=== PATIENT | male | born 1945 | race Caucasian/White ===

== ENCOUNTER 2020-12-18 09:41 | Inpatient (IN) | payer MEDICARE, MEDICAID ==
[~2020-12-18] VITALS: Ht 167 cm; Wt 74.0 kg
[~2020-12-18 09:41] MED LIST: PROM25SU10 RC; TRAM50TA2 PO
--- NOTE | 2020-12-18 09:59 | ED Neurological Problem ---
General Chief Complaint: Neuro-Stroke Like Symptoms Stated Complaint: STROKE LIKE SYMPTOMS History of Present Illness Date Seen by Provider: Dec 18, 2020 Time Seen by Provider: 09:53 Initial Comments Patient is a 75-year-old male who presents to the emergency department today with a chief complaint of left upper extremity weakness. Patient states that he woke up around midnight last night and noticed that his left hand was not working normally. Patient states that he also has some slurred speech. The patient is edentulous however he states that his speech sounds different to himself. Patient denies any complaints of specific leg weakness but states that he did feel like when he was walking he might fall secondary to weakness in the leg. Patient denies any numbness in his extremities. He states that the hand is just not working. He appears to have difficulty with even abducting the left arm. Patient states when he woke up at midnight last night he did have a mild frontal headache. When he woke up this morning it was a little bit worse. He did not take any medications to try and alleviate his symptoms. Patient states that he does not go to doctors. Patient denies any recent illnesses such as fevers, chills, productive cough. He does occasionally feel short of breath. He does smoke quite heavily from 2 packs a day to 1 pack a day most recently. Patient denies any GI or symptoms. All other review of systems reviewed and negative except as stated above. Timing/Duration: 24 hours (10 hours since symptom onset) Severity: moderate Associated Symptoms: No numbness in legs/feet, No paresthesia; slurred speech, trouble walking Allergies and Home Medications Allergies Coded Allergies: No Known Drug Allergies (Unverified , 08/08/09) Home Medications Amlodipine Besylate 10 Mg Tablet, 10 MG PO DAILY Prescribed by: BELKIS MAHONEY on 12/20/20916 Aspirin 325 Mg Tablet.dr, 325 MG PO DAILY Prescribed by: BELKIS MAHONEY on 12/20/20916 Atorvastatin Calcium 40 Mg Tablet, 40 MG PO HS Prescribed by: BELKIS MAHONEY on 12/20/20916 Carvedilol 12.5 Mg Tablet, 12.5 MG PO BID Prescribed by: BELKIS MAHONEY on 12/20/20916 Patient Home Medication List Home Medication List Reviewed: Yes Review of Systems Review of Systems Constitutional: see HPI Eyes: No Symptoms Reported Ears, Nose, Mouth, Throat: no symptoms reported Respiratory: short of breath (Occasional shortness of breath) Cardiovascular: no symptoms reported Gastrointestinal: no symptoms reported Genitourinary: no symptoms reported Musculoskeletal: no symptoms reported Skin: no symptoms reported Psychiatric/Neurological: Headache, Unable to Move Upper Ext, Weakness (Left upper extremity) All Other Systems Reviewed Negative Unless Noted: Yes Past Fzpvkrj-Ntxohc-Ymourd Hx Past Medical History Reproductive Disorders: No Physical Exam Vital Signs Vital Signs - First Documented 12/18/20 09:41 Temp 37.0 Pulse 75 Resp 20 B/P (MAP) 171/101 (124) Pulse Ox 92 O2 Delivery Room Air Capillary Refill : Height, Weight, BMI Height: '" Weight: lbs. oz. kg; BMI Method: General Appearance: WD/WN, no apparent distress HEENT: PERRL/EOMI, normal ENT inspection, pharynx normal Respiratory: lungs clear, normal breath sounds, no respiratory distress, no accessory muscle use Cardiovascular: regular rate, rhythm Gastrointestinal: normal bowel sounds, non tender, soft Extremities: non-tender, normal inspection, normal capillary refill Neurologic/Psychiatric: alert, normal mood/affect, oriented x 3, motor weakness (Left upper extremity); No sensory deficit; other (Patient's tongue seems to deviate to the right) Crainal Nerves: normal hearing, abnormal speech (Slurred speech); No facial droop, No facial paresthesias, No facial weakness; tongue deviation to R Coordination/Gait: normal finger to nose (Coordination appears normal however the patient does demonstrate an ataxia with use of the left upper extremity) Skin: normal color, warm/dry Progress/Results/Core Measures Results/Orders Lab Results Laboratory Tests Test 12/18/20 09:45 12/18/20 10:01 12/18/20 10:12 Range/Units Sodium Level 138 135-145 MMOL/L Potassium Level 4.4 3.6-5.0 MMOL/L Chloride Level 109 H 98-107 MMOL/L Carbon Dioxide Level 20 L 21-32 MMOL/L Anion Gap 9 5-14 MMOL/L Blood Urea Nitrogen 17 7-18 MG/DL Creatinine 0.85 0.60-1.30 MG/DL Estimat Glomerular Filtration Rate > 60 BUN/Creatinine Ratio 20 Glucose Level 124 H 70-105 MG/DL Calcium Level 8.9 8.5-10.1 MG/DL Corrected Calcium 8.6 8.5-10.1 MG/DL Total Bilirubin 0.3 0.1-1.0 MG/DL Aspartate Amino Transf (AST/SGOT) 18 5-34 U/L Alanine Aminotransferase (ALT/SGPT) 18 0-55 U/L Alkaline Phosphatase 75 40-136 U/L Total Protein 7.0 6.4-8.2 GM/DL Albumin 4.4 3.2-4.5 GM/DL Triglycerides Level 59 <150 MG/DL Cholesterol Level 168 < 200 MG/DL LDL Cholesterol Direct 116 1-129 MG/DL VLDL Cholesterol 12 5-40 MG/DL HDL Cholesterol 51 40-60 MG/DL White Blood Count 7.2 4.3-11.0 10^3/uL Red Blood Count 4.69 4.30-5.52 10^6/uL Hemoglobin 14.7 13.3-17.7 g/dL Hematocrit 44 40-54 % Mean Corpuscular Volume 94 80-99 fL Mean Corpuscular Hemoglobin 31 25-34 pg Mean Corpuscular Hemoglobin Concent 34 32-36 g/dL Red Cell Distribution Width 13.0 10.0-14.5 % Platelet Count 207 130-400 10^3/uL Mean Platelet Volume 9.7 9.0-12.2 fL Immature Granulocyte % (Auto) 0 % Neutrophils (%) (Auto) 84 H 42-75 % Lymphocytes (%) (Auto) 11 L 12-44 % Monocytes (%) (Auto) 4 0-12 % Eosinophils (%) (Auto) 0 0-10 % Basophils (%) (Auto) 0 0-10 % Neutrophils # (Auto) 6.0 1.8-7.8 10^3/uL Lymphocytes # (Auto) 0.8 L 1.0-4.0 10^3/uL Monocytes # (Auto) 0.3 0.0-1.0 10^3/uL Eosinophils # (Auto) 0.0 0.0-0.3 10^3/uL Basophils # (Auto) 0.0 0.0-0.1 10^3/uL Immature Granulocyte # (Auto) 0.0 0.0-0.1 10^3/uL Mean Blood Glucose 120 <=126 mg/dL Hemoglobin A1c 5.8 H 4.0-5.6 % Urine Color YELLOW Urine Clarity CLEAR Urine pH 5.5 5-9 Urine Specific [place] 1.010 L 1.016-1.022 Urine Protein NEGATIVE NEGATIVE Urine Glucose (UA) NEGATIVE NEGATIVE Urine Ketones NEGATIVE NEGATIVE Urine Nitrite NEGATIVE NEGATIVE Urine Bilirubin NEGATIVE NEGATIVE Urine Urobilinogen 0.2 < = 1.0 MG/DL Urine Leukocyte Esterase NEGATIVE NEGATIVE Urine RBC (Auto) NEGATIVE NEGATIVE Urine RBC NONE /HPF Urine WBC 0-2 /HPF Urine Squamous Epithelial Cells 0-2 /HPF Urine Crystals NONE /LPF Urine Bacteria NEGATIVE /HPF Urine Casts NONE /LPF Urine Mucus NEGATIVE /LPF Urine Culture Indicated NO My Orders Orders - ALPHONSE MCDONOUGH MD Ct Head Wo (12/18/20 10:01) Cbc With Automated Diff (12/18/20 10:01) Comprehensive Metabolic Panel (12/18/20 10:01) Ua Culture If Indicated (12/18/20 10:01) Ekg Tracing (12/18/20 10:01) Chest 1 View, Ap/Pa Only (12/18/20 10:01) Ct Angio Head/Neck (12/18/20 10:43) Iohexol Injection (Omnipaque 350 Mg/Ml 1 (12/18/20 11:00) Received Contrast (Hold Metformin- Contr (12/18/20 11:00) Ns (Ivpb) (Sodium Chloride 0.9% Ivpb Bag (12/18/20 11:00) Medications Given in ED Vital Signs/I&O 12/18/20 09:41 Temp 37.0 Pulse 75 Resp 20 B/P (MAP) 171/101 (124) Pulse Ox 92 O2 Delivery Room Air Progress Progress Note : Time: 11:44 Progress Note 75-year-old male with a chief complaint of left-sided upper extremity weakness and slurred speech. Patient evaluation today includes physical exam, CBC, chemistry, urinalysis, chest x-ray, EKG CT scan of the brain noncontrast and CTA of the head and neck. Patient's initial CT scan noncontrast of the brain does not show any large pattern of infarct. His CTA of the head and neck shows some narrowing of the distal and proximal internal carotid arteries on the right. Case is discussed with Dr. Shane Buckner at [facility] neurology. He states that the patient is obviously outside of the window for TPA and secondary to low NIH and duration of symptoms would not be a candidate for any type of clot retrieval. No large thrombus is identified in any of the vessels of the head and neck. Patient will be admitted to the hospitalist service here for further evaluation and management of his stroke. Departure Communication (Admissions) Time/Spoke to Admitting Phy: 11:46 Case discussed discussed with Dr. Mahoney. Will admit observation to the medical floor pending MRI then may convert to full admission Impression Primary Impression: Left arm weakness Additional Impression: Hypertension Qualified Codes: I10 - Essential (primary) hypertension Disposition: ADMITTED INPATIENT Condition: Stable Admissions Decision to Admit Reason: Admit from ER (General) Decision to Admit/Date: Dec 18, 2020 Time/Decision to Admit Time: 11:54 Departure-Patient Inst. Referrals: HOLLY VERDUGO DO (PCP/Family) Primary Care Physician Scripts Amlodipine Besylate (Amlodipine Besylate) 10 Mg Tablet 10 MG PO DAILY for 30 Days, #30 TAB 0 Refills Prov: BELKIS MAHONEY MD 12/20/20 Aspirin (Aspirin EC) 325 Mg Tablet. 325 MG PO DAILY for 30 Days, #30 TAB 0 Refills Prov: BELKIS MAHONEY MD 12/20/20 Carvedilol (Carvedilol) 12.5 Mg Tablet 12.5 MG PO BID for 30 Days, #60 TAB 0 Refills Prov: BELKIS MAHONEY MD 12/20/20 Atorvastatin Calcium (Lipitor) 40 Mg Tablet 40 MG PO HS for 30 Days, #30 TAB 0 Refills Prov: BELKIS MAHONEY MD 12/20/20 ALPHONSE MCDONOUGH MD Dec 18, 2020 09:58
[2020-12-18 10:08] LABS: BASOPHILS % (AUTO) 0 % (0-10); EOSINOPHILS % (AUTO) 0 % (0-10); HEMATOCRIT 44 % (40-54); HEMOGLOBIN 14.7 g/dL (13.3-17.7); LYMPHOCYTES # (AUTO) 0.8 10^3/uL (1.0-4.0); LYMPHOCYTES % (AUTO) 11 % (12-44); MEAN CORPUSCULAR HEMOGLOBIN 31 pg (25-34); MEAN CORPUSCULAR HGB CONC 34 g/dL (32-36); MEAN CORPUSCULAR VOLUME 94 fL (80-99); MEAN PLATELET VOLUME 9.7 fL (9.0-12.2); MONOCYTES # (AUTO) 0.3 10^3/uL (0.0-1.0); MONOCYTES % (AUTO) 4 % (0-12); NEUTROPHILS % (AUTO) 84 % (42-75); PLATELET COUNT 207 10^3/uL (130-400); WHITE BLOOD COUNT 7.2 10^3/uL (4.3-11.0)
[2020-12-18 10:14] LABS: ALBUMIN 4.4 GM/DL (3.2-4.5); CHLORIDE 109 MMOL/L (98-107); POTASSIUM 4.4 MMOL/L (3.6-5.0); SODIUM 138 MMOL/L (135-145)
[2020-12-18 10:15] LABS: CALCIUM 8.9 MG/DL (8.5-10.1)
[2020-12-18 10:16] LABS: GLUCOSE 124 MG/DL (70-105)
[2020-12-18 10:17] LABS: CARBON DIOXIDE 20 MMOL/L (21-32)
[2020-12-18 10:18] LABS: BILIRUBIN,TOTAL 0.3 MG/DL (0.1-1.0)
[2020-12-18 10:20] LABS: ALKALINE PHOSPHATASE 75 U/L (40-136); CREATININE SERUM 0.85 MG/DL (0.60-1.30); GFR ESTIMATED > 60
[2020-12-18 10:21] LABS: BUN/CREATININE RATIO 20
[2020-12-18 10:23] LABS: ALANINE AMINOTRANSFERASE 18 U/L (0-55)
[2020-12-18 10:24] LABS: BILIRUBIN,URINE NEGATIVE (NEGATIVE); CLARITY,URINE CLEAR; COLOR,URINE YELLOW; GLUCOSE, URINE (UA) NEGATIVE (NEGATIVE); KETONES,URINE NEGATIVE (NEGATIVE); LEUKOCYTE ESTERASE ,URINE NEGATIVE (NEGATIVE); NITRITE,URINE NEGATIVE (NEGATIVE); PH,URINE 5.5 (5-9); PROTEIN,URINE NEGATIVE (NEGATIVE)
--- NOTE | 2020-12-18 10:31 | Diagnostic Imaging Report ---
PROCEDURE: CT head without contrast. TECHNIQUE: Multiple contiguous axial images were obtained through the brain without the use of intravenous contrast. Auto Exposure Controls were utilized during the CT exam to meet ALARA standards for radiation dose reduction. INDICATION: Left-sided weakness and slurred speech. COMPARISON: No prior studies are available for comparison. Ventricular size and sulcal pattern are stable for the patient's age. No sulcal effacement or midline shift is identified. No acute intra-axial or extra-axial hemorrhage is detected. The cisterns are patent. The visualized paranasal sinuses are clear apart from minimal mucosal thickening of ethmoid air cells and the sphenoid sinus. Mastoids are well aerated. IMPRESSION: No acute intracranial process is identified. Dictated by: Dictated on workstation # [id number]
[2020-12-18 10:35] LABS: BACTERIA,URINE NEGATIVE /HPF; SQUAMOUS EPITHELIAL CELL,UR 0-2 /HPF; WBC,URINE 0-2 /HPF
--- NOTE | 2020-12-18 10:40 | Diagnostic Imaging Report ---
Indication: Left-sided weakness. FINDINGS: Portable chest. Lungs are well-aerated and clear. Heart is not enlarged. No pulmonary edema or hilar adenopathy. No pneumothorax or pleural effusion. No bony abnormalities. IMPRESSION: Negative portable chest. Dictated by: Dictated on workstation # [id number]
[2020-12-18] MEDS ORDERED: NS 100 ML (IVPB) BAG IV ONE (11:00)
[2020-12-18] MEDS ORDERED: HOLD METFORMIN - RECEIVED CONTRAST 20 ML VIAL IV SCH (11:00)
[2020-12-18] MEDS ORDERED: IOHEXOL 350 MG/ML 100 ML (OMNIPAQUE 350) VIAL IV ONE (11:00)
--- NOTE | 2020-12-18 11:34 | Diagnostic Imaging Report ---
PROCEDURE: CT angiography of the head and CT angiography of the neck with and without contrast. TECHNIQUE: Contiguous noncontrast images were obtained from the skull base through the vertex. After intravenous contrast administration, helical CT angiography of the neck was performed. Source data was reformatted into 3D MIP projections. Delayed post contrast acquisition was also obtained. Auto Exposure Controls were utilized during the CT exam to meet ALARA standards for radiation dose reduction. INDICATION: Slurred speech and weakness on the left side. FINDINGS: Delayed postcontrast images are without evidence of enhancing lesion. The CT angiographic portion of the study demonstrates the right common carotid artery to be widely patent. The left common carotid artery is widely patent. There is calcified plaque at the carotid bifurcations bilaterally. There appears to be moderate stenosis involving the right internal carotid artery approximately 1-2 cm beyond its origin. There is also some narrowing of the distal right internal carotid artery and the carotid canal. Carotid siphon is unremarkable. Left internal carotid artery is patent. Left carotid siphon is unremarkable. The right and left middle cerebral arteries appear to be patent. No filling defect or thromboembolism is detected. There are no definite large branch occlusion is identified. The right and left anterior cerebral arteries appear to be patent. The vertebral arteries appear to be codominant and widely patent. The basilar artery is small but patent. There is a patent right posterior communicating artery and origin of the right [employer]. The left [employer]ER is patent. No thromboembolism is detected. IMPRESSION: There is moderate narrowing of the proximal right internal carotid artery as well as the distal right internal carotid artery. No high-grade stenosis is seen. Intracranially, no large branch occlusion or thromboembolism is identified. Dictated by: Dictated on workstation # [id number]
[2020-12-18 13:00] VITALS: BP 195/83
--- NOTE | 2020-12-18 13:40 | NUR ---
KENDALL GUILLAUME admitted to room 408-1, with an admitting diagnosis of LEFT ARM WEAKNESS, HYPERTENSION, on 12/18/20 from [place] via WHEELCHAIR, accompanied by STAFF.KENDALL GUILLAUME introduced to surroundings, call light, bed controls, phone, TV, temperature control, lights, meal times, smoking policy, visitor policy, side rail policy, bathrooms and showers. Patient Rights given to patient in the handbook. KENDALL GUILLAUME verbalizes understanding that [facility] is not responsible for the loss or damage to any personal effects or valuables that are kept in the patients posession during their hospitalization. KENDALL GUILLAUME verbalizes understanding of Interdisciplinary Patient Education. Patient and/or family were informed about the Rapid Response Team and its purpose.
[2020-12-18 14:17] LABS: TRIGLYCERIDES 59 MG/DL (<150); VLDL CHOLESTEROL 12 MG/DL (5-40)
[2020-12-18 14:22] LABS: CHOLESTEROL 168 MG/DL (< 200)
[2020-12-18 14:23] LABS: HDL CHOLESTEROL 51 MG/DL (40-60)
[2020-12-18] MEDS: ASPIRIN E.C. 325 MG (ECOTRIN) TABLET PO SCH (14:27)
[2020-12-18] MEDS ORDERED: ASPIRIN 325 MG (5 GR) TABLET ONE (14:27)
--- NOTE | 2020-12-18 14:56 | NUR ---
SPOKE WITH THE PT TO COMPLETE THE MED REC PT DENIES TAKING ANY OTC OR PRESCRIPTION MEDICATIONS [facility] WAS SELECTED THE PREFERRED PHARMACY PER PTS REQUEST
--- NOTE | 2020-12-18 15:19 | ST Dysphagia Evaluation ---
Speech Evaluation-General Medical Diagnosis CVA Onset Date: Dec 18, 2020 Therapy Diagnosis Therapy Diagnosis: Oropharyngeal Dysphagia Referral Referring Physician: Dr. Esquivel Medical History Reviewed History: Yes Social History Current Living Status: Brother Speech PLF/Current-Dysphagia Prior Level of Function Patient states he lived with his brother and could do anything at home that he needed to. He also states he does not go to doctors. Subjective Patient was cooperative with the Bedside Dysphagia Evaluation. Cognitive Status Patient Orientation: Person, Place, Situation Oral Motor Skills Dentition: Edentalous Ability to Follow Directions: Good Oral Expression Ability: No Impairment Voice Voice Phonatory-Based Quality: Normal Voice Pitch: Normal Voice Loudness: Mildly Soft/Quiet Face Facial Symmetry: Asymmetrical Slight left side facial droop Oral-Facial Assessment Oral-Facial Dentition: Normal Labial Seal Description: Droops Left Smile: Droops Left Lingual Protrusion: Abnormal Deviates to the right slightly Lingual ROM: Abnormal Deviates to the right slightly Lingual Strength: Abnormal Deviates to the right slightly Pharynx Velopharyngeal Move.: Normal Volitional Dry Swallow: Yes Voluntary Cough: Yes Dysphagia Evaluation Consistencies Presented: Thin Liquid, Mechanical Soft, Pureed Oral phase is within normal range for consistencies presented. Regular texture was not presented due to edentulous state. Pharyngeal phase is within normal range for consistencies presented. Regular texture was not presented due to edentulous state. Dietary Recommendations: Mechanical Soft Liquid Recommendations: Thin Swallowing Precautions: Alternate Liquids/Solids, Double Swallow, Decreased Bolus 1/2 Tsp, Liquids from Straw, Small Bites and Sips, Sitting Upright 90 Degrees, Sitting 90 Degrees 30 Post Intake Dysphagia Evaluation Summary Patient is a 75 y/o male who was admitted to the hospital via ED due to CVA. Patient completed the Bedside Dysphagia Evaluation without difficulty with all consistencies. The patient was given thin liquids via 1/2 tsp x2 and small sips via straw x2 without difficulty. Patient was also presented with 1/2 tsp of puree and mechanical soft without difficulty. The patient was not given regular texture due to edentulous state. The patient is recommended for Dysphagia II with thin liquids. This information was presented to the nurse as well as swapna davison on the white board in his room. Barriers to Learning None identified Speech-Plan Patient/Family Goals Patient/Family Goals: Patient plans on returning to his home upon discharge. Treatment Plan Speech Therapy Treatment Plan: Discontinue ST Treatment Duration: Dec 18, 2020 Frequency: 1 time per week Estimated Hrs Per Day: .25 hour per day Rehab Potential: Good Barriers to Learning: None identified Pt/Family Agrees to Plan: Yes Safety Risks/Education Teaching Recipient: Patient Teaching Methods: Discussion Response to Teaching: Verbalize Understanding Education Topics Provided: Safe oral intake, diet level Time Speech Therapy Time In: 14:50 Speech Therapy Time Out: 15:20 Total Billed Time: 30 Billed Treatment Time 1, DYSEVS, DYST, SPSNDCOMP, SLTS No RICARDO ZAVALA Dec 18, 2020 15:19
[2020-12-18 15:30] VITALS: BP 158/88
--- NOTE | 2020-12-18 15:30 | Physical Therapy Evaluation ---
PT Evaluation-General Medical Diagnosis Admission Date Dec 18, 2020 at 11:50 Medical Diagnosis: left UE weakness/HTN Onset Date: Dec 18, 2020 Therapy Diagnosis Therapy Diagnosis: debility/weakness Precautions Precautions/Isolations: Standard Precautions Weight Bear Status Right Lower Extremity: Right Weight Bearing/Tolerated Left Lower Extremity: Left Weight Bearing/Tolerated Referral Physician: Torri Reason for Referral: Evaluation/Treatment Medical History Pertinent Medical History: HTN Current History ER secondary to left UE weakness and slurred speech Reviewed History: Yes Social History Home: Single Level Current Living Status: Alone Entry Into Home: Stairs With Railing PT Steps Into Home: 4 Prior Prior Level of Function SCALE: Activities may be completed with or without assistive devices. 5-Cvpiaopaxe-zannfym completes the activity by him/herself with no assistance from a helper. 5-Set-up or Clean-up Assistance-helper sets up or cleans up; patient completes activity. [place] assists only prior to or following the activity. 4-Supervision or Touching Assistance-helper provides verbal cues and/or touching/steadying and/or contact guard assistance as patient completes activity. Assistance may be provided throughout the activity or intermittently. 3-Partial/Moderate Assistance-helper does LESS THAN HALF the effort. [place] lifts, holds or supports trunk or limbs, but provides less than half the effort. 2-Substantial/Maximal Assistance-helper does MORE THAN HALF the effort. [place] lifts or holds trunk or limbs and provides more than half the effort. 7-Kslhowfki-zcxrnq does ALL the effort. Patient does none of the effort to complete the activity. Or, the assistance of 2 or more helpers is required for the patient to complete the activity. If activity was not attempted, code reason: 7-Patient Refused. 9-Not Applicable-not attempted and the patient did not perform the activity before the current illness, exacerbation or injury. 10-Not Attempted due to Environmental Limitations-(lack of equipment, weather restraints, etc.). 88-Not Attempted due to Medical Conditions or Safety Concerns. Bed Mobility: 6 Transfers (B,C,W/C): 6 Gait: 6 Stairs: 6 Indoor Mobility (Ambulation): Independent Stairs: Independent Prior Devices Use: None PT Evaluation-Current Subjective Patient agrees to PT. Objective Patient Orientation: Normal For Age ROM/Strength ROM Lower Extremities bilateral LE WFL Strength Lower Extremities 4/5 grossly bilateral LE Integumentary/Posture Integumentary refer to nursing notes Bowel Incontinence: No Bladder Incontinence: No Posture WFL Neuromuscular (Tone, Coordination, Reflexes) grossly intact Sensory Vision: Functional Hearing: Functional Transfers Roll Left to Right (QC): 6 Sit to Lying (QC): 6 Lying to Sitting/Side of Bed(Q: 6 Sit to Stand (QC): 4 Chair/Csg-ks-Rubbl Xfer(QC): 4 Toilet Transfer (QC): 4 Gait Does the Patient Walk?: Yes Mode of Locomotion: Walk Anticipated Mode of Locomotion: Walk Walk 10 feet (QC): 4 Walk 50 ft with 2 Turns(QC): 4 Walk 150 ft (QC): 4 Distance: 300' Gait Assistive Device: None Comments/Gait Description SBA for initial assessment Balance Sitting Static: Normal Sitting Dynamic: Normal Standing Static: Normal Standing Dynamic: Normal Picking up an Object (QC): 5 (seated position) Assessment/Needs 75 y.o. male, will be seen x 2 sessions to ensure gross motor skills remain intact and patient is ambulating safely without deviation. Rehab Potential: Fair PT Short Term Goals Short Term Goals Time Frame: Dec 20, 2020 Roll Left & Right: 6 Sit to lyin Lying to sitting on side of be: 6 Sit to stand: 6 Chair/afd-fz-rbgpr transfer: 6 Toilet transfer: 6 Walk 10 feet: 6 Walk 50 feet with two turns: 6 Walk 150 feet: 6 1 step (curb): 6 4 steps: 6 PT Plan Treatment/Plan Treatment Plan: Continue Plan of Care Treatment Plan: Education, Functional Activity Bernabe, Functional Strength, Gait, Safety, Therapeutic Exercise Treatment Duration: Dec 20, 2020 Frequency: 3 times per week Estimated Hrs Per Day: .25 hour per day Patient and/or Family Agrees t: Yes Time/GCodes Time In: 1505 Time Out: 1517 Total Billed Treatment Time: 12 Total Billed Treatment 1 visit EVModC 12 min KIZZY LOONEY PT Dec 18, 2020 15:30
[2020-12-18] MEDS ORDERED: hydrALAZINE (APESOLINE) 20 MG/ML VIAL IV PRN (15:45)
[2020-12-18] MEDS ORDERED: amLODIPine 5 MG (NORVASC) TAB PO NR (15:45)
[2020-12-18 16:00] VITALS: BP 175/79
[2020-12-18] MEDS ORDERED: GADOBUTROL 7.5 MMOL/7.5 ML (GADAVIST) VIAL IV ONE (16:15)
[2020-12-18] MEDS ORDERED: FLU QUAD HIGH DOSE 240 MCG/0.7 ML 2020-21 (FLUZONE) IM ONE (17:00)
--- NOTE | 2020-12-18 17:02 | Diagnostic Imaging Report ---
EXAMINATION: MR imaging brain with and without contrast. TECHNIQUE: Multiplanar, multisequence MR imaging of the brain was performed with and without contrast. HISTORY: Left-sided weakness. COMPARISON: CTA head 12/18/2020. FINDINGS: Mild diffuse cerebral volume loss with proportional enlargement of the ventricles and sulci. Mild diffuse T2/FLAIR hyperintensities throughout the supratentorial white matter of both cerebral hemispheres. There are no extra-axial fluid collections. There are multifocal areas of restricted diffusion within the right posterior frontal, right parietal, and right occipital lobes. These lesions demonstrate abnormal T2/FLAIR hyperintensity. No abnormal parenchymal or meningeal enhancement. Flow voids are normal for major intracranial arteries and dural venous sinuses. The visualized paranasal sinuses are normal. The mastoid air cells are clear. Surgical changes from bilateral cataract repair. IMPRESSION: 1. Multifocal areas of acute to subacute infarct within the right posterior frontal, right parietal, and right occipital lobes. The distribution suggests an embolic etiology. 2. Chronic senescent changes. CRITICAL FINDING Left voicemail on Dr. Wild's cell phone at 4:55 PM on 12/18/2020/cb Report given to nurse (Mayuri) at 5:01 PM on 12/18/2020/cb Dictated by: Dictated on workstation # [id number]
--- NOTE | 2020-12-18 17:13 | NUR ---
RECEIVED CALL FROM [facility]. CALLED RESULTS TO DR. MAHONEY AT THIS TIME.
[2020-12-18 17:27] VITALS: BP 171/101
--- NOTE | 2020-12-18 17:31 | NUR ---
orders rec'd for smoking cessation. Rapport established with patient; patient voices he was once a 5 pack a day smoker and has reduced it to 1 pack per day. Benefits to stop smoking shared, [facility] information shared, [facility] smoking cessation packet shared with patient. will con't to monitor.
[2020-12-18] MEDS ORDERED: RT-ALBUTEROL/IPRATROPIUM 3 ML (DUONEB) VIAL INH SCH (18:00)
[2020-12-18] MEDS: RT-ALBUTEROL/IPRATROPIUM 3 ML (DUONEB) VIAL INH SCH (19:11)
[2020-12-18 19:54] VITALS: BP 173/77
[2020-12-18] MEDS ORDERED: RT-ALBUTEROL/IPRATROPIUM 3 ML (DUONEB) VIAL INH PRN ×2 (20:00→22:00)
[2020-12-18] MEDS ORDERED: CARVEDILOL 12.5 MG (COREG) TABLET PO SCH (21:00)
[2020-12-19] VITALS (8 sets, daily range): BP systolic 119–170; BP diastolic 69–83
[2020-12-19] MEDS: RT-ALBUTEROL/IPRATROPIUM 3 ML (DUONEB) VIAL INH SCH ×4 (02:00→23:00)
--- NOTE | 2020-12-19 04:38 | NUR ---
Called to pt room via pt; reported to this RN that there was blood in his urine, assessed the blood in toiled as being bright red small amount. Pt states no pain or discomfort with urination. Will continue to monitor and report finding to physician in am.
[2020-12-19 05:03] LABS: BASOPHILS % (AUTO) 0 % (0-10); EOSINOPHILS # (AUTO) 0.2 10^3/uL (0.0-0.3); EOSINOPHILS % (AUTO) 3 % (0-10); HEMATOCRIT 43 % (40-54); HEMOGLOBIN 14.3 g/dL (13.3-17.7); LYMPHOCYTES % (AUTO) 17 % (12-44); MEAN CORPUSCULAR HEMOGLOBIN 32 pg (25-34); MEAN CORPUSCULAR HGB CONC 34 g/dL (32-36); MEAN CORPUSCULAR VOLUME 95 fL (80-99); MEAN PLATELET VOLUME 9.4 fL (9.0-12.2); MONOCYTES # (AUTO) 0.5 10^3/uL (0.0-1.0); MONOCYTES % (AUTO) 9 % (0-12); NEUTROPHILS # (AUTO) 4.2 10^3/uL (1.8-7.8); NEUTROPHILS % (AUTO) 71 % (42-75); PLATELET COUNT 205 10^3/uL (130-400)
[2020-12-19 05:21] LABS: CHLORIDE 108 MMOL/L (98-107); POTASSIUM 4.2 MMOL/L (3.6-5.0); SODIUM 141 MMOL/L (135-145)
[2020-12-19 05:22] LABS: GLUCOSE 117 MG/DL (70-105)
[2020-12-19 05:24] LABS: CARBON DIOXIDE 23 MMOL/L (21-32)
[2020-12-19 05:26] LABS: CREATININE SERUM 0.79 MG/DL (0.60-1.30); GFR ESTIMATED > 60
[2020-12-19 05:27] LABS: BUN/CREATININE RATIO 14
[2020-12-19 05:28] LABS: MAGNESIUM 2.1 MG/DL (1.6-2.4)
[2020-12-19] MEDS ORDERED: amLODIPine 5 MG (NORVASC) TAB PO SCH (09:00)
--- NOTE | 2020-12-19 09:56 | Physical Therapy Daily Note ---
PT Daily Note-Current Subjective Patient reports he is up in his room independently. Agrees to PT. Mental Status Patient Orientation: Normal For Age Transfers SCALE: Activities may be completed with or without assistive devices. 1-Nnlevhhins-lsbcvrr completes the activity by him/herself with no assistance from a helper. 5-Set-up or Clean-up Assistance-helper sets up or cleans up; patient completes activity. [place] assists only prior to or following the activity. 4-Supervision or Touching Assistance-helper provides verbal cues and/or touching/steadying and/or contact guard assistance as patient completes activity. Assistance may be provided throughout the activity or intermittently. 3-Partial/Moderate Assistance-helper does LESS THAN HALF the effort. [place] lifts, holds or supports trunk or limbs, but provides less than half the effort. 2-Substantial/Maximal Assistance-helper does MORE THAN HALF the effort. [place] lifts or holds trunk or limbs and provides more than half the effort. 0-Abdmvgsyu-jdxkzq does ALL the effort. Patient does none of the effort to complete the activity. Or, the assistance of 2 or more helpers is required for the patient to complete the activity. If activity was not attempted, code reason: 7-Patient Refused. 9-Not Applicable-not attempted and the patient did not perform the activity before the current illness, exacerbation or injury. 10-Not Attempted due to Environmental Limitations-(lack of equipment, weather restraints, etc.). 88-Not Attempted due to Medical Conditions or Safety Concerns. Sit to Lying (QC): 6 Lying to Sitting/Side of Bed(Q: 6 Sit to Stand (QC): 6 Weight Bearing Right Lower Extremity: Right Weight Bearing/Tolerated Left Lower Extremity: Left Weight Bearing/Tolerated Gait Training Does the Patient Walk?: Yes Distance: 500' Walk 10 feet (QC): 6 Walk 50 ft with 2 Turns(QC): 6 Walk 150 ft (QC): 6 Gait Assistive Device: None safe and functional with no deviation Stair Training Stair Training: Handrails/: 1 handrail #of Steps: 12 1 Step (curb) (QC): 6 4 Steps (QC): 6 12 Steps (QC): 6 Stairs: Pattern: Reciprocal Balance Picking up an Object (QC): 6 Assessment Patient is currently at independent [facility] with all gross motor skills and no longer requires skilled therapy intervention. PT to dismiss patient from services at this time. PT Short Term Goals Short Term Goals Time Frame: Dec 20, 2020 Roll Left & Right: 6 Sit to lyin Lying to sitting on side of be: 6 Sit to stand: 6 Chair/gvq-qa-mcfby transfer: 6 Toilet transfer: 6 Walk 10 feet: 6 Walk 50 feet with two turns: 6 Walk 150 feet: 6 1 step (curb): 6 4 steps: 6 PT Plan Treatment/Plan Treatment Plan: Discontinue PT, goals met Treatment Plan: Education, Functional Activity Bernabe, Functional Strength, Gait, Safety, Therapeutic Exercise Treatment Duration: Dec 20, 2020 Frequency: 3 times per week Estimated Hrs Per Day: .25 hour per day Patient and/or Family Agrees t: Yes Time/GCodes Time In: 839 Time Out: 848 Total Billed Treatment Time: 9 Total Billed Treatment 1 visit FA 9 min KIZZY LOONEY PT Dec 19, 2020 09:56
[2020-12-19] MEDS: amLODIPine 10 MG (NORVASC) TAB PO SCH (10:08)
[2020-12-19] MEDS: CARVEDILOL 12.5 MG (COREG) TABLET PO SCH ×2 (10:09→19:59)
--- NOTE | 2020-12-19 10:14 | NUR ---
unable to obtain ASA from [facility]
[2020-12-19] MEDS: ASPIRIN E.C. 325 MG (ECOTRIN) TABLET PO SCH (10:28)
--- NOTE | 2020-12-19 10:44 | Diagnostic Imaging Report ---
PROCEDURE: US carotid duplex, bilateral. TECHNIQUE: Multiple real-time grayscale images were obtained over the carotid arteries in various projections, bilaterally. Additional spectral analysis and color Doppler duplex images were also obtained. INDICATION: Carotid stenosis. Moderate plaquing in the distal common carotid arteries and carotid bulbs extending into the proximal internal carotid arteries is seen bilaterally. Velocities in the left carotid system are unremarkable. There are elevated velocities in the distal right internal carotid artery reaching 193 cm/s consistent with 50-69% diameter stenosis. Right vertebral artery is antegrade. Left vertebral artery was poorly visualized. IMPRESSION: Moderate bilateral carotid plaque. Velocity measurements in the right internal carotid artery are consistent with 50-69% diameter stenosis. Parameters based on the consensus panel [place]-Scale and Doppler ultrasound criteria published September 2003, Radiology, Volume 229. DOPPLER (peak systolic velocity M/S Right Left CCA 0.89 1.24 ICA Proximal 0.99 0.65 ICA Mid 1.61 0.76 ICA Distal 1.93 0.62 RATIO 2.16 0.61 ECA 1.70 1.17 VERT 0.38 NOT WELL SEEN Dictated by: Dictated on workstation # [id number]
--- NOTE | 2020-12-19 11:50 | Occupational Therapy Eval ---
OT Evaluation-General/PLF Medical Diagnosis Admission Date Dec 18, 2020 at 17:06 Medical Diagnosis: CVA Onset Date: Dec 18, 2020 Therapy Diagnosis Therapy Diagnosis: no deficits noted Precautions Precautions/Isolations: Fall Prevention, Standard Precautions Referral Physician: Torri Referral Reason: Evaluation/Treatment Medical History Pertinent Medical History: HTN Current History ED due to LUE weakness, pt woke ~midnight and noticed L hand was not working, and had some slurred speech. Social History Home: Single Level Current Living Status: Brother Entry Into Home: Stairs With Railing Steps Into Home: 4 ADL-Prior Level of Function SCALE: Activities may be completed with or without assistive devices. 1-Tejdnzinvg-fmdvuvg completes the activity by him/herself with no assistance from a helper. 5-Set-up or Clean-up Assistance-helper sets up or cleans up; patient completes activity. [place] assists only prior to or following the activity. 4-Supervision or Touching Assistance-helper provides verbal cues and/or touching/steadying and/or contact guard assistance as patient completes activity. Assistance may be provided throughout the activity or intermittently. 3-Partial/Moderate Assistance-helper does LESS THAN HALF the effort. [place] lifts, holds or supports trunk or limbs, but provides less than half the effort. 2-Substantial/Maximal Assistance-helper does MORE THAN HALF the effort. [place] lifts or holds trunk or limbs and provides more than half the effort. 5-Nigklorde-bziqae does ALL the effort. Patient does none of the effort to complete the activity. Or, the assistance of 2 or more helpers is required for the patient to complete the activity. If activity was not attempted, code reason: 7-Patient Refused. 9-Not Applicable-not attempted and the patient did not perform the activity before the current illness, exacerbation or injury. 10-Not Attempted due to Environmental Limitations-(lack of equipment, weather restraints, etc.). 88-Not Attempted due to Medical Conditions or Safety Concerns. ADL PLOF Comments Pt reports being independent with all ADLS and functional mobility at OF, no AE/AD. Self Care: Independent Functional Cognition: Independent DME/Equipment: Bath Chair, Shower OT Current Status Subjective Pt seated in chair by window upon OT entry, agreeable to OT evaluation. Pt reports he no longer feels like his LUE is weaker, he is hoping to discharge tod ay. He does not have any concerns with his ability to complete ADLS upon discharge as he is at his PLOF. Mental Status/Objective Patient Orientation: Person, Place, Time, Situation Attachments: Telemetry Current Glasses/Contacts: No Hearing Aids: No Dentures/Partials: No Hand Dominance: Right Upper Extremity ROM WFL, BUE shoulder flexion to approx 150 degrees. Upper Extremity Coordination WFL thumb opposition to each finger. Upper Extremity Sensation WFL, pt denies tingling/numbness Upper Extremity Strength WFL, pt denies any weakness. moderate finishing supervisor plastic sheets strength, equal bilaterally. ADL-Treatment Eating (QC): 6 On/Off Footwear (QC): 6 (IND donning/doffing gripper socks.) Toileting Hygiene (QC): 6 (Pt up ad alek in room, taking self to bathroom without difficulty.) Other Treatments Pt seated in chair by window in his room. OT educated pt on purpose and benefit of OT, he verbalized understanding. Pt provided information about PLOF and home set up and participated in UE screen. Pt feels like he has full function in LUE now, he feels like it has full ROM and good strength. Bilateral finishing supervisor plastic sheets strength equal. Pt reports being up ad alek in his room, and independent with toileting. Pt doffed/donned bilateral gripper socks independently. He feels like he is at his PLOF, and has no concerns with ADLs upon discharge. Post tx, pts seated at chair, all needs met. Education OT Patient Education: Correct positioning, Energy conservation, Modified ADL techniques, Progress toward Goal/Update tx plan, Purpose of tx/functional activities, Rehab process Teaching Recipient: Patient Teaching Methods: Discussion Response to Teaching: Verbalize Understanding OT Custodial Goals Custodial Goals 1=Demonstrate adherence to instructed precautions during ADL tasks. 2=Patient will verbalize/demonstrate understanding of assistive devices/m odifications for ADL. 3=Patient will improve strength/tolerance for activity to enable patient to perform ADL's. OT Education/Plan Problem List/Assessment Assessment: No Skilled OT Needs ID'd No skilled OT services indicated at this time due to pt being at PLOF. Discharge Recommendations Plan/Recommendations: Discharge/Goals Met Therapy Discharge Recommendati: Home & Family Treatment Plan/Plan of Care Treatment,Training & Education: Yes Patient would benefit from OT for education, treatment and training to promote independence in ADL's, mobility, safety and/or upper extremity function for ADL's. Plan of Care: ADL Retraining Treatment Duration: Dec 19, 2020 Frequency: 1 time per week (eval only) Rehab Potential: Good Time/GCodes Start Time: 11:12 Stop Time: 11:21 Total Time Billed (hr/min): 9 Billed Treatment Time 1, EVCHARMAINE PRATER OT Dec 19, 2020 11:50
--- NOTE | 2020-12-19 12:52 | NUR ---
CM/SS visited with the patient for social service consult. The patient was sitting in the chair looking out the window at the time of visit. He is alert and oriented x4 at time of visit. Plan: At time of discharge, the patient will return home self care. Support: The patient reports that his support system is Maira Adams. CM/SS attempted to contact Maira multiple times; however, the phone number either stated they are out of service or it rings "busy". The numbers attempted were [phone], , , [phone], and [phone]. DPOA: CM/SS discussed Advanced Directives and Durable Power of Photovoltaic Fabrication Technician and provided education. The patient reported that he cannot read. CM/SS offered to read aloud the form and explain with the patient and witness present. He denied. He reports he does not wish to complete DPOA paperwork at this time. Home: The patient reports that he lives at home and is independent at home. He reports that he can complete all his ADL's without assistance. The patient states he works outside a lot and is active. Equipment: Denies having any. Occupation: The patient is retired. No further needs at this time.
--- NOTE | 2020-12-19 13:26 | History & Physical-Hospitalist ---
History of Present Illness HPI/Chief Complaint Salvador Adams is a 75-year-old male who is a lifelong smoker and does not go to the doctor who presented with left arm weakness. He reportedly woke up an noticed the weakness. He also was having some slurred speech. He also reports having a headache. He denies any problems with balance and coordination. He denies any weakness in his legs. He denies any fevers or chills. He denies any shortness of breath or cough. He denies any chest pain. He denies any abdominal pain, nausea, or vomiting. He has a current every day smoker of one pack per day. He was previously smoking up to 3 packs per day. He has smoked for his entire life. He denies alcohol use. He denies illicit drug use. Source: patient Exam Limitations: no limitations Date Seen 12/19/20 Time Seen by a Provider: 09:10 Attending Physician Emely Mahoney MD PCP Jovany Simeon DO Referring Physician Date of Admission Dec 18, 2020 at 17:06 Home Medications & Allergies Home Medications Reviewed patient Home Medication Reconciliation performed by pharmacy medication reconciliations general service technician and/or nursing. Patients Allergies have been reviewed. Allergies Allergies Coded Allergies No Known Drug Allergies (Unverified08/08/09) Past Tdneanz-Lwmsyr-Agbkwk Hx Past Med/Social Hx: Reviewed Nursing Past Med/Soc Hx Patient Social History Alcohol Use: Denies Use Recreational Drug Use: No Smoking Status: Current Everyday Smoker Type Used: Cigarettes 2nd Hand Smoke Exposure: Yes Recent Foreign Travel: No Contact w/other who traveled: No Recent Hopitalizations: No Recent Infectious Disease Expo: No Seasonal Allergies Seasonal Allergies: No Past Medical History Reproductive: No Sexually Transmitted Disease: No History of Blood Disorders: No Review of Systems Constitutional: weakness EENTM: no symptoms reported Respiratory: no symptoms reported Cardiovascular: no symptoms reported Gastrointestinal: no symptoms reported Genitourinary: no symptoms reported Musculoskeletal: muscle weakness Skin: no symptoms reported Psychiatric/Neurological: Weakness Physical Exam Physical Exam Vital Signs Vital Signs - First Documented 12/18/20 12/18/20 09:41 17:27 Temp 37.0 Pulse 75 Resp 20 B/P (MAP) 171/101 (124) Pulse Ox 92 O2 Delivery Room Air FiO2 21 Capillary Refill : Less Than 3 Seconds Height, Weight, BMI Height: '" Weight: lbs. oz. kg; 26.53 BMI Method: General Appearance: No Apparent Distress, WD/WN HEENT: PERRL/EOMI, Pharynx Normal Neck: Normal Inspection, Supple Respiratory: No Respiratory Distress, Decreased Breath Sounds Cardiovascular: Regular Rate, Rhythm, No Edema, No Murmur Gastrointestinal: Normal Bowel Sounds, Non Tender, Soft Extremity: Normal Inspection, Non Tender, No Pedal Edema Neurologic/Psychiatric: Alert, Normal Mood/Affect, Disoriented, Motor Weakness, Other (dysmetria and dysdiadokinesia left upper extremity) Skin: Normal Color, Warm/Dry Results Results/Procedures Labs Laboratory Tests 12/18/20 09:45 12/18/20 10:01 12/19/20 04:55 Patient resulted labs reviewed. Imaging: Reviewed Imaging Report Assessment/Plan Admission Diagnosis Acute embolic strokes Admission Status: Inpatient Order (span 2 midnights) Reason for Inpatient Admission: Stroke requiring further evaluation and treatment Assessment and Plan Acute embolic stroke Carotid stenosis CT head unremarkable CTA with right internal carotid artery stenosis MRI showed right posterior frontal, parietal, and occipital strokes indicative of embolic etiology Echo unremarkable Carotid ultrasound with moderate right carotid artery stenosis Blood cultures pending Started on ASA and Lipitor PT/OT HTN Started on Norvasc and Coreg Hydralazine as needed Current heavy cigarette smoker Recommend cessation Nicotine patch CT chest to rule out underlying malignancy DVT prophylaxis: Lovenox Diagnosis/Problems Diagnosis/Problems (1) Acute embolic stroke Status: Acute (2) HTN (hypertension) Status: Acute Qualifiers: Hypertension type: essential hypertension Qualified Codes: I10 - Essential (primary) hypertension (3) Very heavy cigarette smoker Status: Acute (4) Carotid stenosis, right Status: Acute EMELY MAHONEY MD Dec 19, 2020 13:26
[2020-12-19] MEDS ORDERED: ENOXAPARIN 40 MG/0.4 ML (LOVENOX) SYR SC SCH (13:30)
--- NOTE | 2020-12-19 14:33 | NUR ---
"RD ASSESSMENT PMHx: unknown PMH, current - left arm weakness PT INTERACTION: Pt was awake and pleasant during nutrition consult for MST score. Note pt has AMS, per chart review. Pt states current appetite is pretty good. Note avg PO intake 50% x1d, per chart review. Pt states following a regular diet at home, and has no issues with chewing/swallowing food. Note pt has no teeth, per chart review. Pt states no recent wt changes. Note unable to determine recent wt hx, per chart review. Upon visual assessment, pt appears to be adequately nourished with a BMI of 26.5 (Overweight BMI for age). Given PO intake, wt hx, and visual assessment, pt does not meet criteria for malnutrition per ASPEN guidelines. Est. kcal needs: 8337-6527 kcal | 20-25 kcal/kg Est. Pro needs: 59-74 g Pro | 0.8-1.0 g Pro/kg PES STATEMENT: Inadequate oral intake (NI-2.1) related to loss of appetite, as evidenced by pt interview, and avg PO intake 50% x1d. Biting/Chewing (Masticatory) ability (NC-1.2) related to complete edentulism, as evidenced by chart review, and visual assessment. INTERVENTION: Continue with current diet order of DYS2 Mechanically Altered diet, with modifier of 2g Na restriction. Pt may benefit from nutrition supplementation if PO intake declines. Encouraged pt to eat when able. Will continue to follow and reassess as pt needs, intake, and status change. Kenneth LEYVA, MS RD LD [phone] cell"
--- NOTE | 2020-12-19 14:57 | Diagnostic Imaging Report ---
EXAMINATION: CT Chest without contrast. TECHNIQUE: Multiple contiguous axial images were obtained through the chest without the use of intravenous contrast. All CT scans use one or more of the following dose optimizing techniques: automated exposure control, MA and/or KvP adjustment based on a patient size and exam type, or iterative reconstruction. HISTORY: Left arm weakness. COMPARISON: Chest radiograph 12/18/2020. FINDINGS: Thyroid: The thyroid is normal. Mediastinum: Heart size is normal without significant pericardial effusion. Calcifications of the aorta and coronary vessels. Thoracic aorta is normal in caliber. No suspicious lymphadenopathy. Lungs and airways: The lungs are clear without consolidation, pleural effusion, or pneumothorax. Bibasilar atelectasis. The airways are normal. Upper abdomen: The subphrenic structures are normal. Musculoskeletal: Degenerative changes of the spine without suspicious osseous lesion or compression fracture. IMPRESSION: 1. No acute abnormality in the chest. Dictated by: Dictated on workstation # [id number]
[2020-12-20 00:12] VITALS: BP 115/60
[2020-12-20] MEDS: RT-ALBUTEROL/IPRATROPIUM 3 ML (DUONEB) VIAL INH SCH ×2 (02:38→07:56)
[2020-12-20 04:00] VITALS: BP 118/70
[2020-12-20 05:09] VITALS: BP 118/70
[2020-12-20 07:30] VITALS: BP 129/68
[2020-12-20] MEDS: ASPIRIN E.C. 325 MG (ECOTRIN) TABLET PO SCH (07:57)
[2020-12-20] MEDS: amLODIPine 10 MG (NORVASC) TAB PO SCH (07:58)
[2020-12-20] MEDS: CARVEDILOL 12.5 MG (COREG) TABLET PO SCH (07:58)
[2020-12-20] MEDS ORDERED: ATOR40TA PO (09:17)
[2020-12-20] MEDS ORDERED: ASPI325T32 PO (09:17)
[2020-12-20] MEDS ORDERED: AMLO-251 PO (09:17)
[2020-12-20] MEDS ORDERED: CARV12.53 PO (09:17)
--- NOTE | 2020-12-20 11:37 | Discharge Summary ---
Discharge Summary Hospital Course Was the Problem List Reviewed?: Yes Problems/Dx: (1) Acute embolic stroke Status: Acute (2) Cryptogenic stroke Status: Acute (3) HTN (hypertension) Status: Acute Qualifiers: Qualified Codes: I10 - Essential (primary) hypertension (4) Very heavy cigarette smoker Status: Acute (5) Carotid stenosis, right Status: Acute (6) Prediabetes Status: Acute Hospital Course Date of Admission: Dec 18, 2020 at 17:06 Admission Diagnosis : Left arm weakness Family Physician/Provider: Jovany Simeon DO Date of Discharge: 12/20/20 Discharge Diagnosis: Acute embolic stroke Hospital Course: Salvador Adams is a 75-year-old male who presented with left arm weakness and was admitted with acute embolic stroke. His CT scan on arrival was unremarkable. His CTA showed a some right internal carotid stenosis but no other occlusions or significant stenoses. He was started on aspirin and Lipitor. He underwent an MRI which revealed multifocal strokes involving the right posterior frontal, parietal, and occipital lobes indicating likely embolic origin. He underwent an echocardiogram which was unrevealing. He underwent a carotid ultrasound which revealed moderate stenosis. He underwent a CT scan of his chest due to his prolonged smoking history and this was normal. His course was complicated by hypertension for which she was started on Norvasc and Coreg. He was also found to be prediabetic with a hemoglobin A1c of 5.8 percent. He is a lifelong very heavy cigarette smoker, previously smoking 3 packs per day, currently down to 1 pack per day. Smoking cessation was recommended and he plans to quit. He does not have a primary care physician but was set up to establish care at the [facility]. He has not seen a physician for the past 20 years. Labs and Pending Lab Test: Microbiology 12/18/20 Blood Culture - Preliminary, Resulted No growth Home Meds Active Amlodipine Besylate 10 Mg Tablet 10 Mg PO DAILY 30 Days Aspirin EC (Aspirin) 325 Mg Tablet.dr 325 Mg PO DAILY 30 Days Carvedilol 12.5 Mg Tablet 12.5 Mg PO BID 30 Days Lipitor (Atorvastatin Calcium) 40 Mg Tablet 40 Mg PO HS 30 Days Assessment/Pt Instructions Take medications as prescribed. You are being started on Aspirin and Lipitor due to stroke. You are being started on Amlodipine and Coreg due to high blood pressure. Establish care with a primary care doctor. Return with worsening weakness or if you feel like you are getting worse. Discharge Planning: <30 minutes discharge planning Discharge Instructions Discharge Diet: No Restrictions Activity as Tolerated: Yes Discharge Physical Examination Vital Signs Vital Signs Date Time Temp Pulse Resp B/P (MAP) Pulse Ox O2 Delivery O2 Flow Rate FiO2 12/20/20 08:00 Room Air 12/20/20 07:56 95 12/20/20 07:30 36.8 61 18 129/68 (88) 12/18/20 17:27 21 General Appearance: No Apparent Distress, WD/WN HEENT: PERRL/EOMI, Pharynx Normal Respiratory: Lungs Clear, Normal Breath Sounds, No Respiratory Distress Cardiovascular: Regular Rate, Rhythm, No Edema, No Murmur Gastrointestinal: Normal Bowel Sounds, Non Tender, Soft Extremity: Normal Inspection, Non Tender, No Pedal Edema Skin: Normal Color, Warm/Dry Neurologic/Psychiatric: Alert, Oriented x3, Normal Mood/Affect, Other (left dysmetria and dysdiadokinesia) Allergies: Coded Allergies: No Known Drug Allergies (Unverified , 08/08/09) Copy Copies To 1: [facility] [place] Discharge Summary Date of Admission Dec 18, 2020 at 17:06 Date of Discharge Discharge Date: Dec 20, 2020 Discharge Time: 11:31 Admission Diagnosis Acute embolic strokes Discharge Diagnosis Acute embolic stroke (1) Acute embolic stroke Status: Acute (2) Cryptogenic stroke Status: Acute (3) HTN (hypertension) Status: Acute Qualifiers: Qualified Codes: I10 - Essential (primary) hypertension (4) Very heavy cigarette smoker Status: Acute (5) Carotid stenosis, right Status: Acute (6) Prediabetes Status: Acute BELKIS MAHONEY MD Dec 20, 2020 11:37
== END 2020-12-20 11:35 | disposition home or self-care (01) | DRG 66 ==
LOC: EDUNIT# 09:41 → ER 09:44 → 4TH 11:50 → OBSVTOIN 17:06
PROVIDERS: ADMIT Internal Medicine; ATTEND Internal Medicine
DX: I63.9 Cerebral infarction, unspecified (principal); G83.24 Monoplegia of upper limb affecting left nondominant side; R47.81 Slurred speech; I10 Essential (primary) hypertension; F17.210 Nicotine dependence, cigarettes, uncomplicated; I65.21 Occlusion and stenosis of right carotid artery; R73.03 Prediabetes; Z79.82 Long term (current) use of aspirin
CPT/HCPCS: 36415; 70450; 70496; 70498; 70553; 71045; 71250; 80048; 80053; 80061; 81000; 83036; 83735; 85025; 87040; 93005; 93306; 93880; 94640; 94760

== ENCOUNTER 2021-02-15 12:10 | Emergency (ER) | payer MEDICARE, MEDICAID ==
[~2021-02-15] VITALS: Ht 175 cm; Wt 68.0 kg
[~2021-02-15 12:10] MED LIST changes: +AMLO-251 PO; +ASPI325T32 PO; +ATOR40TA PO; +CARV12.53 PO
[2021-02-15 12:30] LABS: BILIRUBIN,URINE NEGATIVE (NEGATIVE); CLARITY,URINE CLEAR; COLOR,URINE YELLOW; GLUCOSE, URINE (UA) NEGATIVE (NEGATIVE); KETONES,URINE NEGATIVE (NEGATIVE); LEUKOCYTE ESTERASE ,URINE NEGATIVE (NEGATIVE); NITRITE,URINE NEGATIVE (NEGATIVE); PH,URINE 7.5 (5-9); PROTEIN,URINE NEGATIVE (NEGATIVE)
[2021-02-15 12:41] LABS: BACTERIA,URINE NEGATIVE /HPF; SQUAMOUS EPITHELIAL CELL,UR RARE /HPF; WBC,URINE RARE /HPF
--- NOTE | 2021-02-15 12:41 | ED Abdominal Pain ---
General Chief Complaint: Abdominal/GI Problems Stated Complaint: BLOOD IN URINE/DIFFUCILTY HAVING BOWEL MOVEMENT Nursing Triage Note: PT PRESENTS TO ED WITH COMPLAINTS OF LOWER ABDOMINAL PAIN, DIFFICULTY AND FREQUESNT URINATION, AND CONSTIPATION X 3 DAYS. Sepsis Screen: No Definite Risk Source of Information: Patient, Caregiver Exam Limitations: Other (mentally challenged ) History of Present Illness Date Seen by Provider: Feb 15, 2021 Time Seen by Provider: 12:32 Initial Comments This is a well-appearing 75-year-old male who presents to the ER with complaints of low abdominal pain and constipation over the past 4 days. Has taken MiraLAX and Ex-Lax bars with no relief. Additionally, reports difficulty urinating since this morning. States he is only to dribble small amounts at a time. Kaylyn berges that he might have seen some blood in his urine as well. States this is never happened in the past. Denies fever, chills, cough, shortness of breath, nausea, vomiting. Allergies and Home Medications Allergies Coded Allergies: No Known Drug Allergies (Unverified , 08/08/09) Home Medications Amlodipine Besylate 10 Mg Tablet, 10 MG PO DAILY Prescribed by: BELKIS MAHONEY on 12/20/20916 Aspirin 325 Mg Tablet.dr, 325 MG PO DAILY Prescribed by: BELKIS MAHONEY on 12/20/20916 Atorvastatin Calcium 40 Mg Tablet, 40 MG PO HS Prescribed by: BELKIS MAHONEY on 12/20/20916 Carvedilol 12.5 Mg Tablet, 12.5 MG PO BID Prescribed by: BELKIS MAHONEY on 12/20/20916 Finasteride 5 Mg Tablet, 5 MG PO DAILY Prescribed by: DESMOND DOHERTY on 02/15/21 144 Nitrofurantoin Monohyd/M-Cryst 100 Mg Capsule, 1 TAB PO BID Prescribed by: DESMOND DOHERTY on 02/15/21 171 Tamsulosin HCl 0.4 Mg Cap, 0.4 MG PO DAILY Take 30 minutes after evening meal Prescribed by: DESMOND DOHERTY on 02/15/21 1440 Patient Home Medication List Home Medication List Reviewed: Yes Review of Systems Review of Systems Constitutional: no symptoms reported EENTM: No Symptoms Reported Respiratory: No Symptoms Reported Cardiovascular: No Symptoms Reported Gastrointestinal: See HPI Genitourinary: See HPI Musculoskeletal: no symptoms reported Skin: no symptoms reported Psychiatric/Neurological: No Symptoms Reported Endocrine: No Symptoms Reported Hematologic/Lymphatic: No Symptoms Reported Past Dixygfi-Jhqjfi-Znsvzv Hx Patient Social History Alcohol Use: Denies Use Type Used: Cigarettes 2nd Hand Smoke Exposure: Yes Recent Infectious Disease Expo: No Recent Hopitalizations: No Seasonal Allergies Seasonal Allergies: No Past Medical History Surgeries: No Respiratory: No Cardiac: No Neurological: No Reproductive Disorders: No Sexually Transmitted Disease: No Gastrointestinal: No Musculoskeletal: No Endocrine: No Blood Disorders: No Physical Exam Vital Signs Vital Signs - First Documented 02/15/21 02/15/21 12:29 15:05 Temp 36.4 Pulse 77 Resp 18 B/P (MAP) 163/91 (115) Pulse Ox 97 O2 Delivery Room Air Capillary Refill : Less Than 3 Seconds Height/Weight/BMI Height: '" Weight: lbs. oz. kg; 22.00 BMI Method: General Appearance: WD/WN, no apparent distress HEENT: PERRL/EOMI, normal ENT inspection, pharynx normal Neck: full range of motion, normal inspection Respiratory: lungs clear, normal breath sounds Cardiovascular: normal peripheral pulses, regular rate, rhythm, no murmur Gastrointestinal: abnormal bowel sounds (hyperactive ), distended, tenderness (Suprapubic tenderness ) Extremities: normal range of motion, non-tender, normal inspection Back: normal inspection, no CVA tenderness Male: normal genitalia Neurologic/Psychiatric: no motor/sensory deficits, alert, normal mood/affect, oriented x 3 Skin: normal color, warm/dry Progress/Results/Core Measures Results/Orders Lab Results Laboratory Tests Test 02/15/21 11:25 02/15/21 13:50 Range/Units Urine Color YELLOW Urine Clarity CLEAR Urine pH 7.5 5-9 Urine Specific [place] 1.010 L 1.016-1.022 Urine Protein NEGATIVE NEGATIVE Urine Glucose (UA) NEGATIVE NEGATIVE Urine Ketones NEGATIVE NEGATIVE Urine Nitrite NEGATIVE NEGATIVE Urine Bilirubin NEGATIVE NEGATIVE Urine Urobilinogen 0.2 < = 1.0 MG/DL Urine Leukocyte Esterase NEGATIVE NEGATIVE Urine RBC (Auto) NEGATIVE NEGATIVE Urine RBC NONE /HPF Urine WBC RARE /HPF Urine Squamous Epithelial Cells RARE /HPF Urine Crystals NONE /LPF Urine Bacteria NEGATIVE /HPF Urine Casts NONE /LPF Urine Mucus NEGATIVE /LPF Urine Culture Indicated NO White Blood Count 7.8 4.3-11.0 10^3/uL Red Blood Count 4.58 4.30-5.52 10^6/uL Hemoglobin 14.6 13.3-17.7 g/dL Hematocrit 43 40-54 % Mean Corpuscular Volume 94 80-99 fL Mean Corpuscular Hemoglobin 32 25-34 pg Mean Corpuscular Hemoglobin Concent 34 32-36 g/dL Red Cell Distribution Width 12.7 10.0-14.5 % Platelet Count 242 130-400 10^3/uL Mean Platelet Volume 9.2 9.0-12.2 fL Immature Granulocyte % (Auto) 0 % Neutrophils (%) (Auto) 74 42-75 % Lymphocytes (%) (Auto) 13 12-44 % Monocytes (%) (Auto) 10 0-12 % Eosinophils (%) (Auto) 2 0-10 % Basophils (%) (Auto) 0 0-10 % Neutrophils # (Auto) 5.8 1.8-7.8 10^3/uL Lymphocytes # (Auto) 1.0 1.0-4.0 10^3/uL Monocytes # (Auto) 0.8 0.0-1.0 10^3/uL Eosinophils # (Auto) 0.2 0.0-0.3 10^3/uL Basophils # (Auto) 0.0 0.0-0.1 10^3/uL Immature Granulocyte # (Auto) 0.0 0.0-0.1 10^3/uL Sodium Level 139 135-145 MMOL/L Potassium Level 4.1 3.6-5.0 MMOL/L Chloride Level 103 98-107 MMOL/L Carbon Dioxide Level 23 21-32 MMOL/L Anion Gap 13 5-14 MMOL/L Blood Urea Nitrogen 13 7-18 MG/DL Creatinine 0.86 0.60-1.30 MG/DL Estimat Glomerular Filtration Rate > 60 BUN/Creatinine Ratio 15 Glucose Level 114 H 70-105 MG/DL Calcium Level 9.3 8.5-10.1 MG/DL Corrected Calcium 9.0 8.5-10.1 MG/DL Total Bilirubin 0.5 0.1-1.0 MG/DL Aspartate Amino Transf (AST/SGOT) 20 5-34 U/L Alanine Aminotransferase (ALT/SGPT) 20 0-55 U/L Alkaline Phosphatase 80 40-136 U/L Total Protein 7.1 6.4-8.2 GM/DL Albumin 4.4 3.2-4.5 GM/DL My Orders Orders - DESMOND DOHERTY APRN Ua Culture If Indicated (02/15/21 12:13) Bladder Scan (02/15/21 12:37) Cbc With Automated Diff (02/15/21 12:37) Comprehensive Metabolic Panel (02/15/21 12:37) Ct Abdomen/Pelvis Wo (02/15/21 12:37) Straight Cath For Spec.-Adult (02/15/21 12:42) Vital Signs/I&O 02/15/21 02/15/21 12:29 15:05 Temp 36.4 Pulse 77 83 Resp 18 19 B/P (MAP) 163/91 (115) 149/84 Pulse Ox 97 96 O2 Delivery Room Air Blood Pressure Mean: 115 Progress Progress Note : Progress Note Patient examined and in no acute distress. He is having extreme difficulty uri nating and only able to express small amounts at a time. Orders placed for basic labs, bladder scan, CT abdomen without to evaluate for any kidney stones/fecal impaction vs. obstruction. 1240: Bladder scan performed and shows >1500 ml urine. Order placed for straight cath in/out. Tolerated well. Labs reviewed and are unremarkable. CT shows distended bladder and enlarged prostate. Reviewed case with Dr. Bradshaw with urology. Recommended placing De [place] Santos catheter and placing him on Proscar, Flomax and antibiotics. Would like patient to follow-up with him this week in office. Reviewed discharge plan of care with patient and caregiver they are agreeable with plan. Diagnostic Imaging Diagonstic Imaging: CT Plain Films/CT/US/NM/MRI: abdomen Comments NAME: KENDALL GUILLAUME [facility] REC#: [id number] PT STATUS: REG ER : 1945 PHYSICIAN: DESMOND DOHERTY APRN ADMIT DATE: 02/15/21/ER Signed Date of Exam:02/15/21 CT ABDOMEN/PELVIS WO PROCEDURE: CT abdomen and pelvis without contrast. TECHNIQUE: Multiple contiguous axial images were obtained through the abdomen and pelvis without the use of intravenous contrast. Auto Exposure Controls were utilized during the CT exam to meet ALARA standards for radiation dose reduction. INDICATION: Hematuria. Abdominal pain. FINDINGS: The lung bases demonstrate no focal infiltrate or consolidation. There is no effusion. There is no pericardial collection. The noncontrast appearance of the liver is unremarkable. The gallbladder is nondistended. There is no biliary dilatation. The pancreas demonstrates no focal abnormality. The spleen is unremarkable. There is no adrenal mass. There are no findings of hydronephrosis. There is no intrarenal calculus or evidence of a stone within the ureters or urinary bladder. Bladder wall appears thickened. The prostate is enlarged and lobulated. There are no findings of bowel thickening or evidence to suggest bowel obstruction. There is no free air, free fluid, or evidence of an abscess. There are small fat-containing inguinal hernias. There are no findings of an acute osseous abnormality. There are advanced degenerative endplate changes throughout the visualized portion of the spine without fracture or malalignment. There are atherosclerotic calcifications within a normal-caliber aorta. IMPRESSION: 1. Thick-walled urinary bladder with enlarged lobulated prostate. 2. No findings of urolithiasis or hydronephrosis. 3. No bowel obstruction. 4. No focal inflammation within the omentum or mesentery. There is no free fluid. Dictated by: Dictated on workstation # [id number] Dict: 02/15/21 1334 Trans: 02/15/21 1418 [id number] Interpreted by: PENNY WITT MD Electronically signed by: PENNY WITT MD 02/15/21 1418 Reviewed: Reviewed by Me Departure Impression Primary Impression: Urinary retention Additional Impression: Constipation Disposition: 01 HOME, SELF-CARE Condition: Improved Departure-Patient Inst. Decision time for Depature: 14:34 Referrals: [facility] [place] (PCP/Family) Primary Care Physician Patient Instructions: Constipation, Adult (DC), Urinary Retention, De Los Santos Catheter, Male Add. Discharge Instructions: Plan: 1. Discharge home with de los santos catheter. Monitor your urine output. If your urine output stops you need to return to ED. 2. Take antibiotics as directed and complete full course. 3. Drink plenty of fluids. Do not handle catheter without washing hands. 4. Take Proscar and Flomax daily as directed. 5. Call Dr. Bradshaw office on Tuesday to schedule follow up appointment this week. 6. Return for any new, concerning, or worsening symptoms. All discharge instructions reviewed with patient and/or family. Voiced understanding. Scripts Nitrofurantoin Monohyd/M-Cryst (Macrobid 100 mg Capsule) 100 Mg Capsule 1 TAB PO BID for 7 Days, #14 CAP 0 Refills Prov: DESMOND DOHERTY APRN 02/15/21 Tamsulosin HCl (Flomax) 0.4 Mg Cap 0.4 MG PO DAILY for 30 Days, #30 CAP 0 Refills Take 30 minutes after evening meal Prov: DESMOND DOHERTY APRN 02/15/21 Finasteride (Proscar) 5 Mg Tablet 5 MG PO DAILY for 30 Days, #30 TAB 0 Refills Prov: DESMOND ODHERTY APRN 02/15/21 Copy Copies To 1: EMILIANA BRADSHAW MD, STORMY D APRN Feb 15, 2021 12:41
--- NOTE | 2021-02-15 13:53 | Diagnostic Imaging Report ---
PROCEDURE: CT abdomen and pelvis without contrast. TECHNIQUE: Multiple contiguous axial images were obtained through the abdomen and pelvis without the use of intravenous contrast. Auto Exposure Controls were utilized during the CT exam to meet ALARA standards for radiation dose reduction. INDICATION: Hematuria. Abdominal pain. FINDINGS: The lung bases demonstrate no focal infiltrate or consolidation. There is no effusion. There is no pericardial collection. The noncontrast appearance of the liver is unremarkable. The gallbladder is nondistended. There is no biliary dilatation. The pancreas demonstrates no focal abnormality. The spleen is unremarkable. There is no adrenal mass. There are no findings of hydronephrosis. There is no intrarenal calculus or evidence of a stone within the ureters or urinary bladder. Bladder wall appears thickened. The prostate is enlarged and lobulated. There are no findings of bowel thickening or evidence to suggest bowel obstruction. There is no free air, free fluid, or evidence of an abscess. There are small fat-containing inguinal hernias. There are no findings of an acute osseous abnormality. There are advanced degenerative endplate changes throughout the visualized portion of the spine without fracture or malalignment. There are atherosclerotic calcifications within a normal-caliber aorta. IMPRESSION: 1. Thick-walled urinary bladder with enlarged lobulated prostate. 2. No findings of urolithiasis or hydronephrosis. 3. No bowel obstruction. 4. No focal inflammation within the omentum or mesentery. There is no free fluid. Dictated by: Dictated on workstation # [id number]
[2021-02-15 14:09] LABS: BASOPHILS % (AUTO) 0 % (0-10); EOSINOPHILS # (AUTO) 0.2 10^3/uL (0.0-0.3); EOSINOPHILS % (AUTO) 2 % (0-10); HEMATOCRIT 43 % (40-54); HEMOGLOBIN 14.6 g/dL (13.3-17.7); LYMPHOCYTES % (AUTO) 13 % (12-44); MEAN CORPUSCULAR HEMOGLOBIN 32 pg (25-34); MEAN CORPUSCULAR HGB CONC 34 g/dL (32-36); MEAN CORPUSCULAR VOLUME 94 fL (80-99); MEAN PLATELET VOLUME 9.2 fL (9.0-12.2); MONOCYTES # (AUTO) 0.8 10^3/uL (0.0-1.0); MONOCYTES % (AUTO) 10 % (0-12); NEUTROPHILS # (AUTO) 5.8 10^3/uL (1.8-7.8); NEUTROPHILS % (AUTO) 74 % (42-75); PLATELET COUNT 242 10^3/uL (130-400); WHITE BLOOD COUNT 7.8 10^3/uL (4.3-11.0)
[2021-02-15 14:22] LABS: ALBUMIN 4.4 GM/DL (3.2-4.5); CHLORIDE 103 MMOL/L (98-107); POTASSIUM 4.1 MMOL/L (3.6-5.0); SODIUM 139 MMOL/L (135-145)
[2021-02-15 14:23] LABS: CALCIUM 9.3 MG/DL (8.5-10.1)
[2021-02-15 14:24] LABS: GLUCOSE 114 MG/DL (70-105)
[2021-02-15 14:25] LABS: TOTAL PROTEIN 7.1 GM/DL (6.4-8.2)
[2021-02-15 14:26] LABS: BILIRUBIN,TOTAL 0.5 MG/DL (0.1-1.0); CARBON DIOXIDE 23 MMOL/L (21-32)
[2021-02-15 14:28] LABS: ALKALINE PHOSPHATASE 80 U/L (40-136); CREATININE SERUM 0.86 MG/DL (0.60-1.30); GFR ESTIMATED > 60
[2021-02-15 14:29] LABS: BUN/CREATININE RATIO 15
[2021-02-15 14:31] LABS: ALANINE AMINOTRANSFERASE 20 U/L (0-55)
[2021-02-15] MEDS ORDERED: FINA5TAB PO (14:40)
[2021-02-15] MEDS ORDERED: TMSL.4C PO (14:40)
[2021-02-15 15:05] VITALS: BP 149/84
[2021-02-15] MEDS ORDERED: NITR-65 PO (17:11)
== END 2021-02-15 15:05 | disposition home or self-care (01) ==
LOC: EDUNIT# 12:10 → ER 12:12
DX: R33.9 Retention of urine, unspecified (principal); K59.00 Constipation, unspecified; I10 Essential (primary) hypertension; Z77.22 Contact with and (suspected) exposure to environmental tobacco smoke (acute) (chronic); Z79.82 Long term (current) use of aspirin
CPT/HCPCS: 36415; 51701; 74176; 80053; 81000; 85025

== ENCOUNTER 2021-06-26 09:58 | Emergency (ER) | payer MEDICARE, MEDICAID ==
[~2021-06-26] VITALS: Ht 162.5 cm; Wt 62.5 kg
[~2021-06-26 09:58] MED LIST changes: +FINA5TAB PO; +NITR-65 PO; +TMSL.4C PO
[2021-06-26 10:24] LABS: BASOPHILS % (AUTO) 0 % (0-10); EOSINOPHILS % (AUTO) 0 % (0-10); HEMATOCRIT 39 % (40-54); HEMOGLOBIN 13.7 g/dL (13.3-17.7); LYMPHOCYTES # (AUTO) 0.6 10^3/uL (1.0-4.0); LYMPHOCYTES % (AUTO) 10 % (12-44); MEAN CORPUSCULAR HEMOGLOBIN 32 pg (25-34); MEAN CORPUSCULAR HGB CONC 35 g/dL (32-36); MEAN CORPUSCULAR VOLUME 89 fL (80-99); MEAN PLATELET VOLUME 9.4 fL (9.0-12.2); MONOCYTES # (AUTO) 0.3 10^3/uL (0.0-1.0); MONOCYTES % (AUTO) 5 % (0-12); NEUTROPHILS # (AUTO) 5.2 10^3/uL (1.8-7.8); NEUTROPHILS % (AUTO) 84 % (42-75); PLATELET COUNT 176 10^3/uL (130-400); WHITE BLOOD COUNT 6.2 10^3/uL (4.3-11.0)
[2021-06-26] MEDS ORDERED: ONDANSETRON 4 MG/2 ML (SDV) Z0FRAN IVP ONE (10:30)
[2021-06-26 10:33] LABS: ALBUMIN 3.7 GM/DL (3.2-4.5); CHLORIDE 97 MMOL/L (98-107); POTASSIUM 3.2 MMOL/L (3.6-5.0); SODIUM 133 MMOL/L (135-145)
[2021-06-26 10:34] LABS: CALCIUM 8.3 MG/DL (8.5-10.1)
[2021-06-26 10:35] LABS: GLUCOSE 123 MG/DL (70-105); TOTAL PROTEIN 6.6 GM/DL (6.4-8.2)
[2021-06-26 10:36] LABS: PROTHROMBIN TIME PATIENT 13.3 SEC (12.2-14.7)
[2021-06-26 10:37] LABS: BILIRUBIN,TOTAL 0.6 MG/DL (0.1-1.0); CARBON DIOXIDE 23 MMOL/L (21-32)
[2021-06-26 10:39] LABS: ALKALINE PHOSPHATASE 69 U/L (40-136); CREATININE SERUM 0.82 MG/DL (0.60-1.30); GFR ESTIMATED 92
[2021-06-26 10:40] LABS: BUN/CREATININE RATIO 13
[2021-06-26 10:42] LABS: ALANINE AMINOTRANSFERASE 15 U/L (0-55); MAGNESIUM 2.2 MG/DL (1.6-2.4)
--- NOTE | 2021-06-26 11:17 | Diagnostic Imaging Report ---
INDICATION: Chest pain. Compared 12/18/2020. FINDINGS: There are new bilateral pulmonary opacities in the right mid to upper lung as well as in the lateral left lower lung. Given the development from the recent study they are suspect for multifocal areas of pneumonia. While nonspecific radiographically, the appearance would be compatible with the provided history of Covid. No effusion or pneumothorax. No free air beneath the diaphragms. IMPRESSION: New vague patchy bilateral infiltrates reflect nonspecific pneumonia but would be compatible with the radiographic findings of Covid pneumonia. Dictated by: Dictated on workstation # [id number]
[2021-06-26] MEDS ORDERED: IOHEXOL 350 MG/ML 100 ML (OMNIPAQUE 350) VIAL IV ONE (12:00)
[2021-06-26] MEDS ORDERED: NS 100 ML (IVPB) BAG IV ONE (12:00)
[2021-06-26] MEDS ORDERED: HOLD METFORMIN - RECEIVED CONTRAST 20 ML VIAL IV SCH (12:00)
--- NOTE | 2021-06-26 12:37 | ED General ---
General Chief Complaint: Respiratory Problems Stated Complaint: CHEST PAIN;SOB;COUGH Nursing Triage Note: Pt c/o sob, chest pain, nausea, sore throat and dry cough that began yesterday. Pt denies chest pain or nausea at time of assessment. Pt denies COVID exposure. Source of Information: Patient Exam Limitations: No Limitations History of Present Illness Date Seen by Provider: Jun 26, 2021 Time Seen by Provider: 10:10 Initial Comments This is 75-year-old gentleman presents to the emergency room with complaints of cough, shortness of breath, loss of appetite, nausea, and chest pain yesterday. He has not yet received a Covid vaccination. He quit smoking about 2 weeks ago when he started feeling ill. He presents here with his qzinol-kb-lpf Maira who is his DPOA. He lives alone and appears to have some dementia. Prior to quitting smoking he smoked about 4 packs/day. He does not use any drugs or alcohol. He sees Meena Youssef at [facility]. His dhaoxb-wn-yzc Maira is here with him and has a DNR form completed by the patient. She states he should be safe at home if he is discharged. Allergies and Home Medications Allergies Coded Allergies: No Known Drug Allergies (Unverified , 08/08/09) Home Medications Amlodipine Besylate 10 Mg Tablet, 10 MG PO DAILY Prescribed by: BELKIS MAHONEY on 12/20/20916 Aspirin 325 Mg Tablet.dr, 325 MG PO DAILY Prescribed by: BELKIS MAHONEY on 12/20/20916 Atorvastatin Calcium 40 Mg Tablet, 40 MG PO HS Prescribed by: BELKIS MAHONEY on 12/20/20916 Carvedilol 12.5 Mg Tablet, 12.5 MG PO BID Prescribed by: BELKIS MAHONEY on 12/20/20916 Finasteride 5 Mg Tablet, 5 MG PO DAILY Prescribed by: DESMOND DOHERTY on 02/15/21 144 Nitrofurantoin Monohyd/M-Cryst 100 Mg Capsule, 1 TAB PO BID Prescribed by: DESMOND DOHERTY on 02/15/21 171 Tamsulosin HCl 0.4 Mg Cap, 0.4 MG PO DAILY Take 30 minutes after evening meal Prescribed by: DESMOND DOHERTY on 02/15/21 1440 Past Mqdzaiz-Sjfzdz-Czcngx Hx Patient Social History Tobacco Use?: No Tobacco type used: Cigarettes Smoking Status: Former Smoker Use of E-Cig and/or Vaping dev: No Substance use?: No Alcohol Use?: No Pt feels they are or have been: No Seasonal Allergies Seasonal Allergies: No Past Medical History Surgeries: No Respiratory: No Cardiac: No Neurological: No Reproductive Disorders: No Sexually Transmitted Disease: No Gastrointestinal: No Musculoskeletal: No Endocrine: No Blood Disorders: No Physical Exam Vital Signs Vital Signs - First Documented 06/26/21 06/26/21 10:00 10:26 Temp 36.8 Pulse 62 Resp 22 B/P (MAP) 129/101 (110) Pulse Ox 92 O2 Delivery Room Air O2 Flow Rate 3.00 Capillary Refill : Less Than 3 Seconds Height, Weight, BMI Height: '" Weight: lbs. oz. kg; 23.00 BMI Method: Progress/Results/Core Measures Suspected Sepsis SIRS Temperature: Pulse: 62 Respiratory Rate: 22 Laboratory Tests 06/26/21 10:15: White Blood Count 6.2 Blood Pressure 129 /101 Mean: 110 Laboratory Tests 06/26/21 10:15: Creatinine 0.82, INR Comment 1.0, Platelet Count 176, Total Bilirubin 0.6 Results/Orders Lab Results Laboratory Tests Test 06/26/21 10:15 06/26/21 11:11 Range/Units White Blood Count 6.2 4.3-11.0 10^3/uL Red Blood Count 4.35 4.30-5.52 10^6/uL Hemoglobin 13.7 13.3-17.7 g/dL Hematocrit 39 L 40-54 % Mean Corpuscular Volume 89 80-99 fL Mean Corpuscular Hemoglobin 32 25-34 pg Mean Corpuscular Hemoglobin Concent 35 32-36 g/dL Red Cell Distribution Width 13.1 10.0-14.5 % Platelet Count 176 130-400 10^3/uL Mean Platelet Volume 9.4 9.0-12.2 fL Immature Granulocyte % (Auto) 1 % Neutrophils (%) (Auto) 84 H 42-75 % Lymphocytes (%) (Auto) 10 L 12-44 % Monocytes (%) (Auto) 5 0-12 % Eosinophils (%) (Auto) 0 0-10 % Basophils (%) (Auto) 0 0-10 % Neutrophils # (Auto) 5.2 1.8-7.8 10^3/uL Lymphocytes # (Auto) 0.6 L 1.0-4.0 10^3/uL Monocytes # (Auto) 0.3 0.0-1.0 10^3/uL Eosinophils # (Auto) 0.0 0.0-0.3 10^3/uL Basophils # (Auto) 0.0 0.0-0.1 10^3/uL Immature Granulocyte # (Auto) 0.0 0.0-0.1 10^3/uL Prothrombin Time 13.3 12.2-14.7 SEC INR Comment 1.0 0.8-1.4 Activated Partial Thromboplast Time 38 H 24-35 SEC Sodium Level 133 L 135-145 MMOL/L Potassium Level 3.2 L 3.6-5.0 MMOL/L Chloride Level 97 L 98-107 MMOL/L Carbon Dioxide Level 23 21-32 MMOL/L Anion Gap 13 5-14 MMOL/L Blood Urea Nitrogen 11 7-18 MG/DL Creatinine 0.82 0.60-1.30 MG/DL Estimat Glomerular Filtration Rate 92 BUN/Creatinine Ratio 13 Glucose Level 123 H 70-105 MG/DL Calcium Level 8.3 L 8.5-10.1 MG/DL Corrected Calcium 8.5 8.5-10.1 MG/DL Magnesium Level 2.2 1.6-2.4 MG/DL Total Bilirubin 0.6 0.1-1.0 MG/DL Aspartate Amino Transf (AST/SGOT) 24 5-34 U/L Alanine Aminotransferase (ALT/SGPT) 15 0-55 U/L Alkaline Phosphatase 69 40-136 U/L Myoglobin 75.1 10.0-92.0 NG/ML Troponin I < 0.028 <0.028 NG/ML C-Reactive Protein High Sensitivity 14.01 H 0.00-0.50 MG/DL B-Type Natriuretic Peptide 62.5 <100.0 PG/ML Total Protein 6.6 6.4-8.2 GM/DL Albumin 3.7 3.2-4.5 GM/DL Procalcitonin 0.05 <0.10 NG/ML Influenza Type A (RT-PCR) Not Detected Not Detecte Influenza Type B (RT-PCR) Not Detected Not Detecte SARS-CoV-2 RNA (RT-PCR) Detected H Not Detecte D-Dimer 1.33 H 0.00-0.49 UG/ML My Orders Orders - SHASHI MARTINEZ MD Covid 19 Inhouse Test (06/26/21 10:14) Influenza A And B By Pcr (06/26/21 10:14) Cbc With Automated Diff (06/26/21 10:14) Magnesium (06/26/21 10:14) Chest 1 View, Ap/Pa Only (06/26/21 10:14) Ekg Tracing (06/26/21 10:14) Comprehensive Metabolic Panel (06/26/21 10:14) Myoglobin Serum (06/26/21 10:14) Protime With Inr (06/26/21 10:14) Partial Thromboplastin Time (06/26/21 10:14) O2 (06/26/21 10:14) Monitor-Rhythm Ecg Trace Only (06/26/21 10:14) Lipid Panel (06/27/21 06:00) Ed Iv/Invasive Line Start (06/26/21 10:14) Ondansetron Injection (Zofran Injectio (06/26/21 10:30) Troponin I (06/26/21 10:15) Fibrin Degradation Products (06/26/21 10:26) BNP (06/26/21 10:28) Hs C Reactive Protein (06/26/21 10:15) Procalcitonin (Pct) (06/26/21 10:15) Ct Angio Chest W (06/26/21 11:47) Iohexol Injection (Omnipaque 350 Mg/Ml 1 (06/26/21 12:00) Received Contrast (Hold Metformin- Contr (06/26/21 12:00) Ns (Ivpb) (Sodium Chloride 0.9% Ivpb Bag (06/26/21 12:00) Potassium Chloride (Tablet) (Klor Con Ta (06/26/21 14:30) Lactated Ringers (Lr 1000 Ml Iv Solution (06/26/21 14:30) Medications Given in ED Current Medications Medications Dose Ordered Sig/Ankit Route Start Time Stop Time Status Last Admin Dose Admin Iohexol 75 ml ONCE ONCE IV 06/26/21 12:00 06/26/21 12:01 DC 06/26/21 12:28 59 ML Ondansetron HCl 8 mg ONCE ONCE IVP 06/26/21 10:30 06/26/21 10:31 DC 06/26/21 10:28 8 MG Sodium Chloride 100 ml ONCE ONCE IV 06/26/21 12:00 06/26/21 12:01 DC 06/26/21 12:29 100 ML Vital Signs/I&O 06/26/21 06/26/21 10:00 10:26 Temp 36.8 Pulse 62 Resp 22 B/P (MAP) 129/101 (110) Pulse Ox 92 96 O2 Delivery Room Air Nasal Cannula O2 Flow Rate 3.00 Capillary Refill : Less Than 3 Seconds Blood Pressure Mean: 110 ECG Initial ECG Impression Date: Jun 26, 2021 Initial ECG Impression Time: 10:08 Initial ECG Rate: 63 Initial ECG Rhythm: Normal Sinus Initial ECG Intervals: Normal Initial ECG Impression: Normal Comment Sinus rhythm with no ST elevation or depression. No abnormal intervals or axis deviation. Diagnostic Imaging Diagonstic Imaging: Xray Plain Films/CT/US/NM/MRI: chest Comments Chest x-ray viewed by me and report reviewed. See report below: NAME: KENDALL GUILLAUME [facility] REC#: [id number] PT STATUS: REG ER : 1945 PHYSICIAN: SHASHI MARTINEZ MD ADMIT DATE: 06/26/21/ER Signed Date of Exam:06/26/21 CHEST 1 VIEW, AP/PA ONLY INDICATION: Chest pain. Compared 12/18/2020. FINDINGS: There are new bilateral pulmonary opacities in the right mid to upper lung as well as in the lateral left lower lung. Given the development from the recent study they are suspect for multifocal areas of pneumonia. While nonspecific radiographically, the appearance would be compatible with the provided history of Covid. No effusion or pneumothorax. No free air beneath the diaphragms. IMPRESSION: New vague patchy bilateral infiltrates reflect nonspecific pneumonia but would be compatible with the radiographic findings of Covid pneumonia. Dictated by: Dictated on workstation # [id number] Dict: 06/26/21 1114 Trans: 06/26/21 1138 NILESH [id number] Interpreted by: VIVI ROWELL Electronically signed by: VIVI ROWELL 06/26/21 1138 Departure Impression Primary Impression: COVID-19 Additional Impressions: Hypoxia Nausea Chest pain Qualified Codes: R07.9 - Chest pain, unspecified Hypokalemia Disposition: ADMITTED INPATIENT Condition: Improved Departure-Patient Inst. Decision time for Depature: 14:44 Referrals: [facility] (PCP/Family) Primary Care Physician Patient Instructions: COVID-19 (DC) Add. Discharge Instructions: Drink plenty of clear liquids. Use your medication as prescribed. Remain in quarantine for 10 days from the time of your positive test. Unvaccinated close contacts should also remain in quarantine for 10 days after their last exposure to you. Call with questions or concerns. Return to the ER if you have worsening symptoms. Monitor your oxygen saturations. If you are not maintaining oxygen saturations greater than 92% even on 4 L of oxygen flow, return to the emergency room. All discharge instructions reviewed with patient and/or family. Voiced understanding. Scripts Ondansetron (Ondansetron Odt) 4 Mg Tab.rapdis 4 MG SL Q4H PRN for NAUSEA/VOMITING, #10 TAB Prov: SHASHI MARTINEZ MD 06/26/21 Albuterol Sulfate (PROAIR HFA) 1 Puff Puff 2 PUFF IH Q4H PRN for WHEEZING, #1 EA 1 PUFF = 90 MCG Prov: SHASHI MARTINEZ MD 06/26/21 Dexamethasone (Dexamethasone) 6 Mg Tablet 6 MG PO DAILY, #10 TAB Prov: SHASHI MARTINEZ MD 06/26/21 Azithromycin (Azithromycin) 250 Mg Tablet 250 MG PO UD, #6 TAB TAKE 2 TABLETS ON DAY ONE THEN TAKE 1 TABLET DAILY FOR FOUR MORE DAYS Prov: SHASHI MARTINEZ MD 06/26/21 SHASHI MARTINEZ MD Jun 26, 2021 12:37
--- NOTE | 2021-06-26 12:44 | Diagnostic Imaging Report ---
PROCEDURE: CT angiography of the chest with contrast. TECHNIQUE: Multiple contiguous axial images were obtained through the chest after uneventful bolus administration of intravenous contrast. 3D reconstructed CTA MIP acquisitions were also performed. Auto Exposure Controls were utilized during the CT exam to meet ALARA standards for radiation dose reduction. INDICATION: Shortness of breath and chest pain as well as sore throat and dry cough. COMPARISON: Correlation is made with prior CT chest from 12/19/2020. FINDINGS: Evaluation of the pulmonary arterial system is without evidence of thromboembolism. No filling defects are seen within central, lobar, or segmental branches. The thoracic aorta is normal in caliber. There is no dissection. No pericardial or pleural fluid is identified. Parenchymal evaluation does show some centrilobular emphysematous changes. There are some groundglass infiltrates in the right upper lobe as well as bilateral lower lobes. There is some groundglass infiltrate in the left upper lobe and lingula as well. No mass is detected. Upper abdomen is unremarkable. IMPRESSION: 1. No evidence of pulmonary embolism or thoracic aortic dissection. 2. Patchy groundglass pulmonary infiltrates bilaterally, perhaps on the basis of COVID-19 pneumonia. Dictated by: Dictated on workstation # [id number]
[2021-06-26] MEDS ORDERED: KCL 10 MEQ TAB (MICRO K) PO ONE (14:30)
[2021-06-26] MEDS ORDERED: LACTATED RINGERS 1,000 ML IV ONE (14:30)
[2021-06-26] MEDS ORDERED: ONDA4TAB11 SL (14:49)
[2021-06-26] MEDS ORDERED: AZIT250T12 PO (14:49)
[2021-06-26] MEDS ORDERED: RT-ALBUINH IH (14:49)
[2021-06-26] MEDS ORDERED: DEXA6TAB PO (14:49)
[2021-06-26 16:00] VITALS: BP 133/66
== END 2021-06-26 16:00 | disposition home or self-care (01) ==
LOC: EDUNIT# 09:58 → ER 09:59
DX: U07.1 COVID-19 (principal); R09.02 Hypoxemia; R11.0 Nausea; E87.6 Hypokalemia; Z87.891 Personal history of nicotine dependence; Z79.82 Long term (current) use of aspirin
CPT/HCPCS: 36415; 71045; 71275; 80053; 83735; 83874; 83880; 84145; 84484; 85025; 85379; 85610; 85730; 86141; 87636; 93005; 93041

== ENCOUNTER → 2021-08-17 | Outpatient (CLI) | payer MEDICARE, MEDICAID ==
[~2021-08-17] MED LIST changes: +AZIT250T12 PO; +DEXA6TAB PO; +ONDA4TAB11 SL; +RT-ALBUINH IH
--- NOTE | 2021-08-17 12:32 | Diagnostic Imaging Report ---
PROCEDURE: CT abdomen and pelvis without contrast. TECHNIQUE: Multiple contiguous axial images were obtained through the abdomen and pelvis without the use of intravenous contrast. Auto Exposure Controls were utilized during the CT exam to meet ALARA standards for radiation dose reduction. INDICATION: Prostate cancer. COMPARISON: 02/15/2021. FINDINGS: The lung bases are clear. The unopacified liver parenchyma appears nonfocal. The gallbladder and bile ducts are normal. The spleen, adrenals, and pancreas are unremarkable. There is no mesenteric or retroperitoneal lymphadenopathy. The urinary bladder is mildly distended and its wall is slightly thickened although this is less pronounced than on the prior exam. The bladder base is indented upon by a nodular lobulated enlarged prostate which appears unchanged. No periprosthetic or sidewall lymphadenopathy. The inguinal canals appear unremarkable. There is no suspicious lytic or sclerotic bony lesion with degenerative changes throughout the spine, chronic. IMPRESSION: Lobulated prostamegaly indents the bladder base, unchanged. No lymphadenopathy or suspicious bone lesion. Dictated by: Dictated on workstation # [id number]
--- NOTE | 2021-08-17 16:23 | Diagnostic Imaging Report ---
INDICATION: Prostate cancer. TECHNIQUE: Anterior and posterior whole body planar imaging was performed after the administration of 24.2 mCi of technetium 99m MDP. FINDINGS: There is relatively symmetric degenerative uptake in the shoulders, wrists, knees, and ankles bilaterally. There is focal activity in the right mid tibia. There is also focal activity in the lower thoracic spine. No other focal areas of increased or decreased activity are appreciated. There is physiologic uptake within the kidneys bilaterally with excretion into the urinary bladder. IMPRESSION: Nonspecific uptake in the mid right tibial diaphysis. This is likely post traumatic although metastatic disease cannot be entirely excluded. Recommend clinical correlation. Degenerative uptake in the shoulders, wrists, knees, and ankles. There is also focal uptake in the lower thoracic spine, likely degenerative or possibly reflecting a compression fracture. Recommend clinical correlation and, if warranted, followup with MRI. Dictated by: Dictated on workstation # [id number]
== END ==
LOC: CARD 12:00
PROVIDERS: ATTEND Urology
DX: C61 Malignant neoplasm of prostate (principal)
CPT/HCPCS: 74176; 78306; A9503

== ENCOUNTER 2021-11-02 08:13 | Outpatient (RCR) | payer MEDICARE, MEDICAID ==
[2021-11-25] MEDS ORDERED: ATOR40TA70 PO (13:55)
[2021-11-25] MEDS ORDERED: HYDR12.56 PO (13:55)
[2021-11-25] MEDS ORDERED: CARV12.53 PO (13:55)
[2021-11-25] MEDS ORDERED: AMLO-251 PO (13:55)
[2021-12-02] MEDS ORDERED: CIPR-225 PO (08:29)
[2021-12-02] MEDS ORDERED: KETO10TA PO (08:29)
== END 2021-11-27 | disposition home or self-care (01) ==
LOC: ONC 08:13
PROVIDERS: ATTEND Radiology Radiation Oncology
DX: C61 Malignant neoplasm of prostate (principal); E78.00 Pure hypercholesterolemia, unspecified
CPT/HCPCS: 84153; G0463; 99204

== ENCOUNTER 2021-11-25 05:30 | Outpatient (CLI) | payer MEDICARE, MEDICAID ==
[2021-11-25] MEDS ORDERED: ATOR40TA70 PO (13:55)
[2021-11-25] MEDS ORDERED: CARV12.53 PO (13:55)
[2021-11-25] MEDS ORDERED: AMLO-251 PO (13:55)
[2021-11-25] MEDS ORDERED: HYDR12.56 PO (13:55)
== END 2021-11-25 14:19 | disposition home or self-care (01) ==
LOC: PREOP 05:30
PROVIDERS: ATTEND Urology
DX: Z01.818 Encounter for other preprocedural examination (principal)

== ENCOUNTER 2021-12-02 06:10 | Day surgery (SDC) | payer MEDICARE, MEDICAID ==
[~2021-12-02] VITALS: Ht 160 cm; Wt 65.1 kg
[2021-12-02] VITALS (10 sets, daily range): BP systolic 108–136; BP diastolic 8–88
[~2021-12-02 06:10] MED LIST changes: +ATOR40TA70 PO; +HYDR12.56 PO
--- OUTSIDE RECORDS SUMMARY | 2021-12-02 06:13 | XMS REPORT | Clinical Summary ---
Author Author [facility] Organization [facility] Address Unknown Phone Unavailable Care Team Providers Care Flying Instructor Name Role Phone NnadoMeena EDDIE PCP Source Comments Some departments are not documenting in the electronic medical record. If you d o not see the information that you expected, contact Release of Information in [facility] [employer] Information Management department at [phone] for further assistan ce in locating additional records.[facility] Allergies No known active allergies Medications End Date Status Medication Sig Dispensed Refills Start Date Active carvediloL (COREG) 12.5 every 12 0 01/21/ 202 mg tablet hours. 1 Active hydroCHLOROthiazide every 24 0 (HYDRODIURIL) 12.5 mg hours. 1 capsule Active atorvastatin (LIPITOR) 40 every 24 0 02/2 4/202 mg tablet hours. 1 Active Problems Problem Noted Date Prostate cancer 10/07/2021 Overview: Formatting of this note might be differ ent from the original. Prostate cancer diagnosis Diagnosis date: 08/07/21 PSA (at diagnosis): 27.9 Prostate volume: 89.7 cc PSA density: 0.31 Highest grade group: GG1 Percentage total cores involved: 42.86 Clinical stage: cT1c Staging studies: CT: Yes Bone scan: Yes MRI prostate: No Summary findings: High Risk Genetic Testing Indicated: Germline: Yes Indication (NCCN) High/Very High Risk: Yes Pre-Prostatectomy Prognostic (MSKCC: [email or web address]://www.mskcc.org/nomograms/prostat [email or web address]/pre_op): Risk of extraprostatic disease: 68% Risk of seminal vesical invasion: 7% Risk of lymph node invasion: 5% Risk of recurrence at 5 years: 29 % Risk of recurrence at 10 years: 44 % L ast Assessment & Plan: Formatting of this note is different fr om the original. I had the pleasure of meeting with Juan Alberto Adams in clinic today. He has a history of HTN, HLD, BPH, CVA (on ASA32 5 mg) and is a current smoker with 180 pack-year history. I reviewed his diagnosis of prostate ca ncer and how the [place] score is used in the risk stratification system together with PSA and clinical examination. I discussed the [place] s core in detail with respect to its role in tumor biology and behavior. I then discussed the treatment options for a man with high risk disease as outlined by the NCCN in whom at least 5 years of life expectancy is anticipated: 1. Surgery with pelvic lymph node diss ection +/- adjuvant therapies 2. External beam radiotherapy with con current androgen deprivation +/- brachytherapy boost I specifically reviewed the role of sta ging in the evaluation of a high risk patient and how this impacts treat ment decisions. At this time has completed his staging. Radiation I discussed radiation and the modalitie s employed in the management of prostate cancer between brachytherapy, external beam radiation, proton therapy, and stereotactic radiotherapy. I explained that there is equivalence between radiation and surge ry when each are delivered in standard of care. Specifically I discu ssed that surgery and early salvage radiation when needed is equivalent to brachytherapy plus external beam plus androgen deprivation therapy. If brachytherapy is not employed, there is excellent retrospective data demonst rating that long-term cancer control is inferior with a radiation based appr oach related to surgery with early salvage therapy when indicated. We rev iewed the quality of life impacts from radiation. Surgery I reviewed the role of surgery and the relevant surgical anatomy and the role of the robotic platform. I explai kiara that surgery for prostate cancer exists on a continuum of quality of lif e outcomes and cancer control. We reviewed that a maximal cancer surgery is also associated with maximal impacts on quality of life (erectile dy sfunction and incontinence). I explained that the approach utilized fo r the surgery is driven by his goals of cancer care and his particular patho logy and staging. We outlined the differences between space of retzius sp aring prostatectomy and anterior prostatectomy and the role of nerve spa ring versus non-nerve sparing. We discussed the quality of life outcomes between the various approaches and the trade-offs between cancer control a nd quality of life. I explained my person outcomes with these approaches. I also reviewed the specific procedural risks, which include, but are not limited to infection, bleeding, need fo r blood transfusion, and injury to surrounding structures including the re ctum, small bowel, bladder, ureters, blood vessels, nerves specifically the obturator nerve. I reviewed the general procedural risks of wound heali ng complications, wound infections, conversion to open procedure as well as termination of procedure. We have discussed the risk of long-term neuropr axia, air emboli, DVT, PE, stroke, and . Survivorship I then discussed survivorship care [facility] consists of monitoring for recurrence and management of treatment related side effects. I reviewed how pathology dictates follo w-up and risk of recurrence. I explained that men with treated prostat e cancer (surgery or radiation) are at risk of recurrence during follow-up and that historically up around 80% of men will require adjuvant treatments ; often based on the post-surgical pathology. I additionally reviewed how monitoring is performed to maximize the benefit of adjuvant therapies shoul d they be required. I provided the patient a copy of my [place] cancer packet and encouraged them to review it in detail as it reinf orces and expands on the risks and benefits of each approach to managing p rostatectomy. Plan We discussed the patient's overall life expectancy, and that per NCCN guidelines observation/watchful waiting is an appropriate management option in patients with less than 5-year life expectancy. The patient's calculated 10-year life expectancy is 3 3%. We discussed that given his strong smoking history as well as histo ry of stroke, he is at high risk for complication during robotic prostatecto my. He also has a history of urinary retention with elevated PVR and has required catheterization in the past. He is not currently on medicatio ns for this and is content with his current urination. We discussed that p rimary radiation would put him at risk of urinary retention long-term, es pecially if brachytherapy is utilized. We discussed that our holmiu m laser enucleation of the prostate and subsequent radiation trial would pr ovide adequate outlet relief in him followed by primary treatment. We are happy to put in a referral to Dr. Santana for this if the patient desires to proceed with outlet procedure. He states that he is not bothered by his u rinary function at this time. The patient seeks to avoid androgen dep rivation therapy, which we discussed would be the intervention if watchful waiting was employed he developed metastatic disease. We discu ssed that primary treatment in this setting would involve a proactive stanc e, despite his likely reduced life expectancy, while watchful waiting with initiation of ADT if he developed metastatic cancer would be reactive. A fter discussion of the risks associated with both of these approache s, he and his DPOA agree that proceeding with consultation for primar y radiation closer to home is their desire. Radiation oncology referral; patient wi ll see locally in [place], [place] RTC prn Encounters Care Team Description Date Type Specialty Yaakov Moya MD Prostate cancer (HCC) 10/08/2021 Office Visit Oncology 10/08/2021 Travel Yaakov Moya MD Navigation Assessment 10/01/2021 Telephone Oncology from Last 3 Months Immunizations Name Administration Dates Next Due COVID-19 (PFIZER), mRNA 08/21/2021, 07/21/2021 vacc, 30 mcg/0.3 mL (PF) Surgical History Surgery Date Site/Laterality Comments EYE SURGERY Medical History Medical History Date Comments Cancer of colon (HCC) Cancer (HCC) Hypertension Unspecified cerebral artery occlusion with cerebral infarction (HCC) Family History Medical History Relation Name Comments Cancer-Lung Brother Diabetes Brother Heart Disease Brother High Cholesterol Brother Hypertension Brother Diabetes Father Diabetes Mother Relation Name Status Comments Brother Father Mother Social History Date Tobacco Use Types Packs/Day Years Used Current Every Day Smoker Cigarettes Smokeless Tobacco: Never Used Tobacco Cessation: Ready to Quit: No; Co unseling Given: No Comments Alcohol Use Standard Drinks/Week Never 0 (1 standard drink = 0.6 o z pure alcohol) Alcohol Habits Answer Date Recorded How often do you have a drink containing alcohol? Never 10/08/2021 How many drinks containing alcohol do you have on No t asked a typical day when you are drinking? How often do you have six or more drinks on one Not asked occasion? Comment: Not asked Sex Assigned at Date Recorded Not on file Last Filed Vital Signs Reading Time Taken Comments Vital Sign 132/73 10/08/2021 9:42 AM [employer] Blood Pressure 67 10/08/2021 9:42 AM [employer] Pulse 36.7 C (98.1 F) 10/08/2021 9:42 AM [employer] TILE [employer] Temperature 14 10/08/2021 9:42 AM [employer]RA[employer]LE [employer] Respiratory Rate 99% 10/08/2021 9:42 AM [employer] Oxygen Saturation - - Inhaled Oxygen Concentration 67.1 kg (148 lb) 10/08/2021 9:42 AM [employer]LE [employer] Weight 160.3 cm (5' 3.1") 10/08/2021 9:42 AM [employer]LE [employer] Height 26.13 10/08/2021 9:42 AM [employer] Body Mass Index Plan of Treatment Health Maintenance Due Date Last Done Comments MEDICARE ANNUAL WELLNESS 1945 VISIT PNEUMONIA (PPSV23) 1953 VACCINE (1 of 2 - PPSV23) DTAP/TDAP VACCINES (1 - 1965 Tdap) HEPATITIS C SCREENING 1965 PHYSICAL (COMPREHENSIVE) 1965 EXAM COLORECTAL CANCER 1997 SCREENING SHINGLES RECOMBINANT 1997 VACCINE (1 of 2) ABDOMINAL AORTIC ANEURYSM 2012 SCREENING INFLUENZA VACCINE 06/28/2021 COVID-19 VACCINE (3 - 02/18/2022 08/21/2021, Booster for Pfizer 08/21/2021, series) 07/21/2021, Additional history exists Results Not on filefrom Last 3 Months Insurance Type Payer Benefit Subscriber ID Effective Phone Address Plan / Dates Group Medicare MEDICARE MEDICARE [id number] 1993-P [phone] [address] [place] [address] [employer] MEDICAID [employer] [id number] 2018-P [phone] [address] [place] [address] [place] [phone] 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
--- OUTSIDE RECORDS SUMMARY | 2021-12-02 06:13 | XMS REPORT | Encounter Summary ---
Author Author [facility] Organization [facility] Address Unknown Phone Unavailable Care Team Providers Care Risk Officer Name Role Phone NandoMeena EDDIE PCP Encounter Details Care Team Description Date Type Department 10/08/2021 Travel Social History Date Tobacco Use Types Packs/Day Years Used Current Every Day Smoker Cigarettes Smokeless Tobacco: Never Used Comments Alcohol Use Standard Drinks/Week Never 0 [...] Assigned at Date Recorded Not on file Date Recorded COVID-19 Exposure Response 10/08/2021 9:04 AM LOCKSMITH In the last month, have you been in contact with No / Unsure someone who was confirmed or suspected to have Coronavirus / COVID-19? documented as of this encounter Functional Status Date of Assessment Functional Status Response 10/08/2021 Does the patient have a hearing impairment: No 10/08/2021 Does the patient have a visual impairment: No 10/08/2021 Does the patient have impaired ambulation: No 10/08/2021 Does the patient have an activity of daily living No (ADL) impairment: 10/08/2021 Does the patient have an instrumental activity of No daily living (IADL) impairment: Date of Assessment Cognitive Status Response 10/08/2021 Does the patient have a cognitive impairment: No documented as of this encounter Plan of Treatment Not on filedocumented as of this encounter Visit Diagnoses Not on filedocumented in this encounter Additional Health Concerns Noted Time Assessment 10/08/2021 9:47 AM LOCKSMITH A fall risk assessment has been complet ed for the patient 10/08/2021 9:47 AM LOCKSMITH PHQ-2 Depression Total Score: 0 documented as of this encounter Care Teams Start Date End Date Risk Officer Relationship Specialty 10/01/21 Meena Collier APRN PCP - General Nurse [address] [place] [phone] documented as of this encounter
--- OUTSIDE RECORDS SUMMARY | 2021-12-02 06:13 | XMS REPORT | Encounter Summary ---
Author Author [facility] Organization [facility] Address Unknown Phone Unavailable Care Team Providers Care Support Services Coordinator Name Role Phone NandoMeena EDDIE PCP Reason for Referral * Consult, Test & Treat (Routine) - New Request Diagnoses / Procedures Referred By Contact Referred To Conta ct Specialty Diagnoses Prostate cancer ([place] [address] [place] [address] Elio Kelly MD [address] [place] [address] Referral ID Status Reason Start Date Expiration Visits Vi sits Date Requested Authorized [id number] New Request Specialty Services 10/08/2021 10/08/2022 1 1 Required Comments Prostate Canncer 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 METAL ERECTOR APPRENTICE Reason for Visit * Reason Comments New Patient * Consult, Test & Treat (Routine) - Pending Review Diagnoses / Procedures Referred By Contact Referred To Conta ct Specialty Diagnoses Prostate cancer (HCC) Sloan Adams MD [address] [place] [address] Referral ID Status Reason Start Date Expiration Visits Vi sits Date Requested Authorized [id number] Pending 09/15/2021 09/15/2022 1 1 Review Encounter Details Care Team Description [place] [address] [phone] Prostate cancer (HCC) 10/08/2021 Office Visit Oncology: Corina alex, [facility] [address] [place] [address] Social History Date Tobacco Use Types Packs/Day [...] Recorded COVID-19 Exposure Response 10/08/2021 9:04 AM ORNAMENTAL METAL ERECTOR APPRENTICE In the last month, have you been in contact with No / Unsure someone who was confirmed or suspected to have Coronavirus / COVID-19? documented as of this encounter Last Filed Vital Signs Reading Time Taken Comments Vital Sign 132/73 10/08/2021 9:42 AM ORNAMENTAL METAL ERECTOR APPRENTICE Blood Pressure 67 10/08/2021 9:42 AM ORNAMENTAL METAL ERECTOR APPRENTICE Pulse 36.7 C (98.1 F) 10/08/2021 9:42 AM ORNAMENTAL METAL ERECTOR APPRENTICE Temperature 14 10/08/2021 9:42 AM ORNAMENTAL METAL ERECTOR APPRENTICE Respiratory Rate 99% 10/08/2021 9:42 AM ORNAMENTAL METAL ERECTOR APPRENTICE Oxygen Saturation - - Inhaled Oxygen Concentration 67.1 kg (148 lb) 10/08/2021 9:42 AM ORNAMENTAL METAL ERECTOR APPRENTICE Weight 160.3 cm (5' 3.1") 10/08/2021 9:42 AM ORNAMENTAL METAL ERECTOR APPRENTICE Height 26.13 10/08/2021 9:42 AM ORNAMENTAL METAL ERECTOR APPRENTICE Body Mass Index documented in this encounter Functional Status Date of Assessment [...] impairment: No documented as of this encounter Progress Notes * Alisha Otero RN - 10/08/2021 10:00 AM ORNAMENTAL METAL ERECTOR APPRENTICE Fax sent successfully to Dr. Elio Kelly office for pt's rad/onc referral order. MENTAL METAL ERECTOR APPRENTICE * Yaakov Moya MD - 10/08/2021 10:00 AM ORNAMENTAL METAL ERECTOR APPRENTICE Images from the original note were not included. Date of Service: 10/08/2021 Subjective: Chief Complaint Patient presents with New Patient History of Present Illness Salvador Adams is a 76 y.o. male with history of HTN, HLD, BPH, CVA (on OEN717 mg), current smoker presents today for consultation regarding recently diagnosed pro state cancer. Patient presented earlier this year with gross hematuria, urinary retention. Merry ging showed an enlarged lobulated prostate. PSA elevated at 14.9. Per notes, he was initiated on Flomax, proscar and antibiotics. PSA initially decreased to 7.8 , but then later fernando to 27.9. Hematuria work-up was negative performed by Dr. Adams. He underwent prostate biopsy revealing prostate adenocarcinoma grade grou p 1 in six cores. Staging imaging negative for metastatic disease. The patient presents today with his nephew, and the nephews , who is his DPO A. History was taken from his DPOA and the patient. He reports that he has had catheter placed for urinary retention one time in the past and has baseline low er urinary tract symptoms, although these are not particularly bothersome to him . He reports nocturia x1-2, daytime frequency every hour. He denies straining or sensation of incomplete emptying. Evaluation by Dr. Crocker indicated elevated postvoid residuals on multiple occasions, over 300 cc, over 200 cc, 181 cc. The patient is no longer on finasteride or tamsulosin, however cannot state when he stopped these medications. He is a current smoker and started smoking at age 17. He has [id number] hist ory and currently smokes 3 cigarettes a day. He denies previous abdominal surge ry, heart attack, however has had a stroke 2 years ago. Since that time he has been on ASA 325 mg. 02/15/21- CT A/P WO, IMPRESSION: 1. Thick walled urinary bladder with enlarged lobulated prostate. 2. No findings of urolithiasis or hydronephrosis. 3. No bowel obstruction 4. No focal inflammation within the omentum or mesentery. There is no free fluid . 02/25/21- PSA 14.9 03/18/21- PSA 7.8 07/20/21- PSA 27.9 08/07/21- TRUSP biopsy, pathology: 08/17/21- Bone scan, IMPRESSION: CT A/P WO, IMPRESSION: Lobulated prostamegaly indents the bladder base, unchanged. No lymphadenopathy o r suspicious bone lesion. Medical History: Diagnosis Date Cancer (HCC) Cancer of colon (HCC) Hypertension Unspecified cerebral artery occlusion with cerebral infarction (HCC) Surgical History: Procedure Laterality Date EYE SURGERY Family History Problem Relation Age of Onset Diabetes Mother Diabetes Father Cancer-Lung Brother Diabetes Brother Heart Disease Brother Hypertension Brother High Cholesterol Brother Current Outpatient Medications Medication Sig Dispense Refill atorvastatin (LIPITOR) 40 mg tablet every 24 hours. carvediloL (COREG) 12.5 mg tablet every 12 hours. hydroCHLOROthiazide (HYDRODIURIL) 12.5 mg capsule every 24 hours. No current facility-administered medications for this visit. No Known Allergies Social History Socioeconomic History Marital status: Single Spouse name: Not on file Number of children: Not on file Years of education: Not on file Highest education level: Not on file Occupational History Not on file Tobacco Use Smoking status: Current Every Day Smoker Types: Cigarettes Smokeless tobacco: Never Used Substance and Sexual Activity Alcohol use: Never Drug use: Never Sexual activity: Not on file Other Topics Concern Not on file Social History Narrative Not on file Objective: atorvastatin (LIPITOR) 40 mg tablet every 24 hours. carvediloL (COREG) 12.5 mg tablet every 12 hours. hydroCHLOROthiazide (HYDRODIURIL) 12.5 mg capsule every 24 hours. Vitals: 10/08/21 0942 BP: 132/73 BP Source: Arm, Left Upper Patient Position: Sitting Pulse: 67 Resp: 14 Temp: 36.7 C (98.1 F) TempSrc: Temporal SpO2: 99% Weight: 67.1 kg (148 lb) Height: 160.3 cm (63.1") PainSc: Zero Body mass index is 26.13 kg/m. Physical Exam Vitals and nursing note reviewed. Constitutional: General: He is not in acute distress. Appearance: He is well-developed. He is not diaphoretic. HENT: Head: Normocephalic and atraumatic. Eyes: General: Right eye: No discharge. Left eye: No discharge. Neck: Vascular: No JVD. Trachea: No tracheal deviation. Cardiovascular: Rate and Rhythm: Normal rate. Pulmonary: Effort: Pulmonary effort is normal. No respiratory distress. Abdominal: General: There is no distension. Palpations: Abdomen is soft. Musculoskeletal: General: No deformity. Normal range of motion. Cervical back: Normal range of motion and neck supple. Neurological: Mental Status: He is alert and oriented to person, place, and time. Psychiatric: Behavior: Behavior normal. Thought Content: Thought content normal. Judgment: Judgment normal. Assessment and Plan: Problem Prostate Cancer (Hcc) Prostate cancer diagnosis Diagnosis date: 08/07/21 PSA (at diagnosis): 27.9 Prostate volume: 89.7 cc PSA density: 0.31 Highest grade group: GG1 Percentage total cores involved: 42.86 Clinical stage: cT1c Staging studies: CT: Yes Bone scan: Yes MRI prostate: No Summary findings: High Risk Genetic Testing Indicated: Germline: Yes Indication (NCCN) High/Very High Risk: Yes Pre-Prostatectomy Prognostic (MSKCC: [email or web address]): Risk of extraprostatic disease: 68% Risk of seminal vesical invasion: 7% Risk of lymph node invasion: 5% Risk of recurrence at 5 years: 29 % Risk of recurrence at 10 years: 44 % Prostate cancer (HCC) I had the pleasure of meeting with Salvador Adams in clinic today. He has a histor y of HTN, HLD, BPH, CVA (on YDI414 mg) and is a current smoker with 180 pack-yea r history. I reviewed his diagnosis of prostate cancer and how the Yvonne score is used in the risk stratification system together with PSA and clinical examination. I d iscussed the [place] score in detail with respect to its role in tumor biology a nd behavior. I then discussed the treatment options for a man with high risk disease as outli kiara by the NCCN in whom at least 5 years of life expectancy is anticipated: 1. Surgery with pelvic lymph node dissection +/- adjuvant therapies 2. External beam radiotherapy with concurrent androgen deprivation +/- brachyth erapy boost I specifically reviewed the role of staging in the evaluation of a high risk pat ient and how this impacts treatment decisions. At this time has completed his s taging. Radiation I discussed radiation and the modalities employed in the management of prostate cancer between brachytherapy, external beam radiation, proton therapy, and stere otactic radiotherapy. I explained that there is equivalence between radiation a nd surgery when each are delivered in standard of care. Specifically I discusse d that surgery and early salvage radiation when needed is equivalent to brachyth erapy plus external beam plus androgen deprivation therapy. If brachytherapy is not employed, there is excellent retrospective data demonstrating that long-term cancer control is inferior with a radiation based approach related to surgery with early salvage therapy when indicated. We reviewed the quality of life impa cts from radiation. Surgery I reviewed the role of surgery and the relevant surgical anatomy and the role of the robotic platform. I explained that surgery for prostate cancer exists on a continuum of quality of life outcomes and cancer control. We reviewed that a m aximal cancer surgery is also associated with maximal impacts on quality of life (erectile dysfunction and incontinence). I explained that the approach utilized for the surgery is driven by his goals of cancer care and his particular patho logy and staging. We outlined the differences between space of retzius sparing prostatectomy and anterior prostatectomy and the role of nerve sparing versus no n-nerve sparing. We discussed the quality of life outcomes between the various approaches and the trade-offs between cancer control and quality of life. I exp lained my person outcomes with these approaches. I also reviewed the specific procedural risks, which include, but are not limite d to infection, bleeding, need for blood transfusion, and injury to surrounding structures including the rectum, small bowel, bladder, ureters, blood vessels, n erves specifically the obturator nerve. I reviewed the general procedural risks of wound healing complications, wound infections, conversion to open procedure as well as termination of procedure. We have discussed the risk of buttermaker continuous churn joshua ropraxia, air emboli, DVT, PE, stroke, and . Survivorship I then discussed survivorship care which consists of monitoring for recurrence a nd management of treatment related side effects. I reviewed how pathology dictates follow-up and risk of recurrence. I explained that men with treated prostate cancer (surgery or radiation) are at risk of rec urrence during follow-up and that historically up around 80% of men will require adjuvant treatments; often based on the post-surgical pathology. I additionally reviewed how monitoring is performed to maximize the benefit of adjuvant thera pies should they be required. I provided the patient a copy of my prostate cancer packet and encouraged them t o review it in detail as it reinforces and expands on the risks and benefits of each approach to managing prostatectomy. Plan We discussed the patient's overall life expectancy, and that per NCCN guidelines observation/watchful waiting is an appropriate management option in patients wi th less than 5-year life expectancy. The patient's calculated 10-year life expe ctancy is 33%. We discussed that given his strong smoking history as well as id story of stroke, he is at high risk for complication during robotic prostatectom y. He also has a history of urinary retention with elevated PVR and has require d catheterization in the past. He is not currently on medications for this and is content with his current urination. We discussed that primary radiation woul d put him at risk of urinary retention long-term, especially if brachytherapy is utilized. We discussed that our holmium laser enucleation of the prostate and subsequent radiation trial would provide adequate outlet relief in him followed by primary treatment. We are happy to put in a referral to Dr. Santana for this if the patient desires to proceed with outlet procedure. He states that he is not bothered by his urinary function at this time. The patient seeks to avoid androgen deprivation therapy, which we discussed woul d be the intervention if watchful waiting was employed he developed metastatic d isease. We discussed that primary treatment in this setting would involve a pro active stance, despite his likely reduced life expectancy, while watchful waitin g with initiation of ADT if he developed metastatic cancer would be reactive. A fter discussion of the risks associated with both of these approaches, he and id s DPOA agree that proceeding with consultation for primary radiation closer to h ome is their desire. Radiation oncology referral; patient will see locally in [place], [place] RT prn Patient seen and discussed with Dr. Moya, who directed plan of care. Ruiz Howe MD PGY-4 Orders Placed This Encounter AMB REFERRAL TO RADIATION ONCOLOGY ATTESTATION I personally performed the seaman portions of the E/M visit, discussed case with re agustin and concur with resident documentation of history, physical exam, assessm ent, and treatment plan unless otherwise noted. Mr. Adams is a 76 year old man with multiple medical issues who presents to [facility] management of his grade group 1 prostate cancer with a PSA of 28. He has mi ld obstructive symptoms which are not bothersome at this time but he does have a history of an elevated PVR and has had to catheterize in the past. I discussed that management of his disease could include numerous options such as watchful waiting, radiation, or surgery. I did not recommend active surveillance for him on the basis of his overall health. Additionally, I recommended against surgery due to the adan-procedural risks. He voiced understanding and agreement. He would favor an intervention based strategy and we will therefore refer him to [facility] onc[facility] locally. He was in agreement. Staff name: Yaakov Moya MD Date: 10/08/2021 MENTAL METAL ERECTOR APPRENTICE documented in this encounter Plan of Treatment Order Schedule Name Type Priority Associated Diag noses Ordered: 10/08/2021 AMB REFERRAL TO RADIATION Outpatient Routine Pros schilling cancer (HCC) ONCOLOGY Referral documented as of this encounter Visit Diagnoses Diagnosis Prostate cancer (HCC) Malignant neoplasm of prostate * Assessment & Plan Note - Ruiz Howe MD - 10/08/2021 10:29 AM ORNAMENTAL METAL ERECTOR APPRENTICE Associated Problem(s): Prostate cancer (HCC) I had the pleasure of meeting with Salvador Adams in clinic today. He has a histor y of HTN, HLD, BPH, CVA (on HEM336 mg) and is a current smoker with 180 pack-yea r history. I reviewed his diagnosis of prostate cancer and how the Yvonne score is used in the risk stratification system together with PSA and clinical examination. I d iscussed the Yvonne score in detail with respect to its role in tumor biology a nd behavior. I then discussed the treatment options for a man with high risk disease as outli kiara by the NCCN in whom at least 5 years of life expectancy is anticipated: 1. Surgery with pelvic lymph node dissection +/- adjuvant therapies 2. External beam radiotherapy with concurrent androgen deprivation +/- brachyth erapy boost I specifically reviewed the role of staging in the evaluation of a high risk pat ient and how this impacts treatment decisions. At this time has completed his s taging. Radiation I discussed radiation and the modalities employed in the management of prostate cancer between brachytherapy, external beam radiation, proton therapy, and stere otactic radiotherapy. I explained that there is equivalence between radiation a nd surgery when each are delivered in standard of care. Specifically I discusse d that surgery and early salvage radiation when needed is equivalent to brachyth erapy plus external beam plus androgen deprivation therapy. If brachytherapy is not employed, there is excellent retrospective data demonstrating that long-term cancer control is inferior with a radiation based approach related to surgery with early salvage therapy when indicated. We reviewed the quality of life impa cts from radiation. Surgery I reviewed the role of surgery and the relevant surgical anatomy and the role of the robotic platform. I explained that surgery for prostate cancer exists on a continuum of quality of life outcomes and cancer control. We reviewed that a m aximal cancer surgery is also associated with maximal impacts on quality of life (erectile dysfunction and incontinence). I explained that the approach utilized for the surgery is driven by his goals of cancer care and his particular patho logy and staging. We outlined the differences between space of retzius sparing prostatectomy and anterior prostatectomy and the role of nerve sparing versus no n-nerve sparing. We discussed the quality of life outcomes between the various approaches and the trade-offs between cancer control and quality of life. I exp lained my person outcomes with these approaches. I also reviewed the specific procedural risks, which include, but are not limite d to infection, bleeding, need for blood transfusion, and injury to surrounding structures including the rectum, small bowel, bladder, ureters, blood vessels, n erves specifically the obturator nerve. I reviewed the general procedural risks of wound healing complications, wound infections, conversion to open procedure as well as termination of procedure. We have discussed the risk of fpc joshua ropraxia, air emboli, DVT, PE, stroke, and . Survivorship I then discussed survivorship care which consists of monitoring for recurrence a nd management of treatment related side effects. I reviewed how pathology dictates follow-up and risk of recurrence. I explained that men with treated prostate cancer (surgery or radiation) are at risk of rec urrence during follow-up and that historically up around 80% of men will require adjuvant treatments; often based on the post-surgical pathology. I additionally reviewed how monitoring is performed to maximize the benefit of adjuvant thera pies should they be required. I provided the patient a copy of my prostate cancer packet and encouraged them t o review it in detail as it reinforces and expands on the risks and benefits of each approach to managing prostatectomy. Plan We discussed the patient's overall life expectancy, and that per NCCN guidelines observation/watchful waiting is an appropriate management option in patients wi th less than 5-year life expectancy. The patient's calculated 10-year life expe ctancy is 33%. We discussed that given his strong smoking history as well as id story of stroke, he is at high risk for complication during robotic prostatectom y. He also has a history of urinary retention with elevated PVR and has require d catheterization in the past. He is not currently on medications for this and is content with his current urination. We discussed that primary radiation woul d put him at risk of urinary retention long-term, especially if brachytherapy is utilized. We discussed that our holmium laser enucleation of the prostate and subsequent radiation trial would provide adequate outlet relief in him followed by primary treatment. We are happy to put in a referral to Dr. Santana for this if the patient desires to proceed with outlet procedure. He states that he is not bothered by his urinary function at this time. The patient seeks to avoid androgen deprivation therapy, which we discussed woul d be the intervention if watchful waiting was employed he developed metastatic d isease. We discussed that primary treatment in this setting would involve a pro active stance, despite his likely reduced life expectancy, while watchful waitin g with initiation of ADT if he developed metastatic cancer would be reactive. A fter discussion of the risks associated with both of these approaches, he and id s DPOA agree that proceeding with consultation for primary radiation closer to h ome is their desire. Radiation oncology referral; patient will see locally in [place], [place] RT prn MENTAL METAL ERECTOR APPRENTICE documented in this encounter Historical Medications * This list may reflect changes made after this encounter. Start Date End Date Medication Sig Dispensed Refills 01/21/2021 atorvastatin (LIPITOR) 40 every 24 0 mg tablet hours. 12/25/2020 hydroCHLOROthiazide every 24 0 (HYDRODIURIL) 12.5 mg hours. capsule 01/21/2021 carvediloL (COREG) 12.5 every 12 0 mg tablet hours. added in this encounter Additional Health Concerns Noted Time Assessment 10/08/2021 9:47 AM ORNAMENTAL METAL ERECTOR APPRENTICE A fall risk assessment has been complet ed for the patient 10/08/2021 9:47 AM ORNAMENTAL METAL ERECTOR APPRENTICE PHQ-2 Depression Total Score: 0 documented as of this encounter Care Teams Start Date End Date Support Services Coordinator Relationship Specialty 10/01/21 Meena Collier APRN PCP - General Nurse [address] [place] [address] documented as of this encounter
[2021-12-02] MEDS ORDERED: LACTATED RINGERS 1,000 ML IV PRN (06:30)
[2021-12-02] MEDS ORDERED: cefTRIAXone 1 GM PRE-MIX 50 ML IV ONE (06:30)
--- NOTE | 2021-12-02 07:27 | Progress Note-Pre Operative ---
Pre-Operative Progress Note H&P Reviewed The H&P was reviewed, patient examined and no changes noted. Date Seen by Provider: Dec 02, 2021 Time Seen by Provider: 07:26 Date H&P Reviewed: Dec 02, 2021 Time H&P Reviewed: 07:27 Pre-Operative Diagnosis: CA PROSTATE EMILIANA BRADSHAW MD Dec 02, 2021 07:27
--- NOTE | 2021-12-02 07:33 | Progress Note-Post Operative ---
Post-Operative Progess Note Surgeon (s)/Outbound Sales Consultant (s) Surgeon EMILIANA BRADSHAW MD Outbound Sales Consultant: NONE Pre-Operative Diagnosis CA PROSTATE Post-Operative Diagnosis SAME Procedure & Operative Findings Date of Procedure 12/02/21 Procedure Performed/Findings SPACE OAR PLACEMENT Anesthesia Type GENERAL Estimated Blood Loss Estimated blood loss (mL): NEGLIGIBLE Specimens/Packing Specimens Removed NONE Packing: NONE EMILIANA BRADSHAW MD Dec 02, 2021 07:33
--- NOTE | 2021-12-02 07:34 | Discharge Inst-Urology ---
Discharge Inst-Urology Reconcile Patient Problems Problems Reviewed?: Yes Final Diagnosis CAP Patient Instructions/Follow Up Plan/Assessment/Instructions Please make appointment to been seen in office in 4 weeks. Increase oral fluids for 48 hours and then as needed. Diet and Activity as tolerated. If questions or concerns contact your physician Or seek help at emergency department. EMILIANA BRADSHAW MD Dec 02, 2021 07:34
[2021-12-02] MEDS ORDERED: CIPR-225 PO ×2 (08:29)
[2021-12-02] MEDS ORDERED: KETO10TA PO ×2 (08:29)
[2021-12-02] MEDS ORDERED: fentaNYL INJ 100 MCG/2 ML AMP ONE (09:02)
[2021-12-02] MEDS ORDERED: proPOfol 200 MG/20 ML (DIPRIVAN) VIAL IV ONE (09:02)
[2021-12-02] MEDS ORDERED: LIDOCAINE PF 2% 5 ML (XYLOCAINE) VIAL ONE (09:02)
[2021-12-02] MEDS ORDERED: SEVOFLURANE (ULTANE) 15 ML INHAL SOLN ONE (09:02)
[2021-12-02] MEDS ORDERED: ONDANSETRON 4 MG/2 ML (SDV) Z0FRAN ONE (09:02)
[2021-12-02] MEDS ORDERED: GLYCOPYRROLATE 0.2 MG/ML (ROBINUL) 2 ML VIAL ONE (09:25)
[2021-12-02] MEDS ORDERED: HYDROmorphone 2 MG/ML VIAL (DILAUDID) IV ONE (09:45)
[2021-12-02] MEDS ORDERED: ONDANSETRON 4 MG/2 ML (SDV) Z0FRAN IVP PRN (09:45)
--- NOTE | 2021-12-03 11:01 | Anesthesia-General Post-Op ---
General Patient Condition Mental Status/LOC: Same as Preop Cardiovascular: Satisfactory Nausea/Vomiting: Absent Respiratory: Satisfactory Pain: Controlled Complications: Absent Post Op Complications Complications None Follow Up Care/Instructions Patient Instructions None needed. Anesthesia/Patient Condition Patient Condition Patient is doing well, no complaints, stable vital signs, no apparent adverse anesthesia problems. No complications reported per nursing. D/C home per [facility] Criteria: Yes CAROLE BERNARD CRNA Dec 03, 2021 11:01
[2021-12-03] MEDS ORDERED: PANT40TA2 PO (11:38)
[2021-12-03] MEDS ORDERED: TMSL.4C PO (11:38)
[2021-12-03] MEDS ORDERED: FINA5TAB PO (11:38)
== END 2021-12-02 11:10 | disposition home or self-care (01) ==
LOC: SDC 06:10
PROVIDERS: ATTEND Urology
DX: C61 Malignant neoplasm of prostate (principal); E78.00 Pure hypercholesterolemia, unspecified; M19.90 Unspecified osteoarthritis, unspecified site; Z79.82 Long term (current) use of aspirin; Z79.899 Other long term (current) drug therapy; Z80.1 Family history of malignant neoplasm of trachea, bronchus and lung
CPT/HCPCS: 55874; 87081; C1889

== ENCOUNTER 2021-12-03 06:40 | Emergency (ER) | payer MEDICARE, MEDICAID ==
[~2021-12-03] VITALS: Ht 160 cm; Wt 74.0 kg
[~2021-12-03 06:40] MED LIST changes: +CIPR-225 PO; +KETO10TA PO
[2021-12-03] MEDS ORDERED: LACTATED RINGERS 1,000 ML IV ONE (07:00)
[2021-12-03] MEDS ORDERED: ONDANSETRON 4 MG/2 ML (SDV) Z0FRAN IVP ONE (07:00)
[2021-12-03 07:29] LABS: BASOPHILS % (AUTO) 0 % (0-10); EOSINOPHILS % (AUTO) 0 % (0-10); HEMATOCRIT 42 % (40-54); HEMOGLOBIN 14.8 g/dL (13.3-17.7); LYMPHOCYTES # (AUTO) 1.7 10^3/uL (1.0-4.0); LYMPHOCYTES % (AUTO) 9 % (12-44); MEAN CORPUSCULAR HEMOGLOBIN 31 pg (25-34); MEAN CORPUSCULAR HGB CONC 35 g/dL (32-36); MEAN CORPUSCULAR VOLUME 89 fL (80-99); MEAN PLATELET VOLUME 9.3 fL (9.0-12.2); MONOCYTES # (AUTO) 1.7 10^3/uL (0.0-1.0); MONOCYTES % (AUTO) 8 % (0-12); NEUTROPHILS # (AUTO) 16.6 10^3/uL (1.8-7.8); NEUTROPHILS % (AUTO) 83 % (42-75); PLATELET COUNT 288 10^3/uL (130-400); WHITE BLOOD COUNT 20.1 10^3/uL (4.3-11.0)
[2021-12-03 07:41] LABS: ALBUMIN 4.3 GM/DL (3.2-4.5); POTASSIUM 4.1 MMOL/L (3.6-5.0)
[2021-12-03 07:42] LABS: CALCIUM 9.5 MG/DL (8.5-10.1)
[2021-12-03 07:43] LABS: TOTAL PROTEIN 7.3 GM/DL (6.4-8.2)
[2021-12-03 07:45] LABS: BILIRUBIN,TOTAL 0.4 MG/DL (0.1-1.0)
[2021-12-03 07:47] LABS: CREATININE SERUM 1.15 MG/DL (0.60-1.30)
[2021-12-03 08:00] LABS: BAND NEUTROPHILS 0 %; BASOPHILS % (MANUAL) 0 %; EOSINOPHILS % (MANUAL) 0 %; LYMPHOCYTES % (MANUAL) 4 %; MONOCYTES % (MANUAL) 4 %; NEUTROPHILS % (MANUAL) 92 %; RBC MORPH NORMAL
[2021-12-03] MEDS ORDERED: IOHEXOL 350 MG/ML 100 ML (OMNIPAQUE 350) VIAL IV ONE (08:30)
[2021-12-03] MEDS ORDERED: HOLD METFORMIN - RECEIVED CONTRAST 20 ML VIAL IV SCH (08:30)
[2021-12-03] MEDS ORDERED: CATHETER FLUSH 10 ML SYR IV PRN (08:30)
[2021-12-03] MEDS ORDERED: NS 100 ML (IVPB) BAG IV ONE (08:30)
[2021-12-03] MEDS ORDERED: fentaNYL INJ 100 MCG/2 ML AMP IVP ONE (08:30)
[2021-12-03 08:38] LABS: BILIRUBIN,URINE NEGATIVE (NEGATIVE); CLARITY,URINE CLEAR; COLOR,URINE YELLOW; GLUCOSE, URINE (UA) TRACE (NEGATIVE); KETONES,URINE NEGATIVE (NEGATIVE); LEUKOCYTE ESTERASE ,URINE NEGATIVE (NEGATIVE); NITRITE,URINE NEGATIVE (NEGATIVE); PROTEIN,URINE NEGATIVE (NEGATIVE)
[2021-12-03 08:51] LABS: BACTERIA,URINE NEGATIVE /HPF
[2021-12-03 09:12] LABS: PROTHROMBIN TIME PATIENT 13.6 SEC (12.2-14.7)
--- NOTE | 2021-12-03 09:18 | Diagnostic Imaging Report ---
EXAMINATION: CT chest, abdomen and pelvis with intravenous contrast. TECHNIQUE: Multiple contiguous axial images were obtained through the chest, abdomen and pelvis after the uneventful administration of intravenous contrast. All CT scans use one or more of the following dose optimizing techniques: automated exposure control, MA and/or KvP adjustment based on patient size and exam type or iterative reconstruction. HISTORY: Chest wall and LUQ pain COMPARISON: 08/17/2021, 06/26/2021 FINDINGS: Thyroid: The visualized thyroid gland is normal. Mediastinum: Heart size is normal without significant pericardial effusion. Calcifications of the aorta and coronary vessels. Thoracic aorta is normal in caliber. No suspicious lymphadenopathy. Lungs and airways: The lungs are clear without consolidation, pleural effusion, or pneumothorax. No suspicious pulmonary lesion. There is atelectasis within the dependent lungs. The airways are normal. Solid organs: The liver is normal without focal lesion. The gallbladder is normal. There is no biliary ductal dilation. Pancreas is normal. Spleen is normal. Adrenal glands are normal. The kidneys are normal without hydronephrosis. Bowel: There is diffuse wall thickening of the esophagus. There is no bowel obstruction. The colon and appendix are normal. Peritoneum: There is contrast and free air seen anterior to the rectum and posterior to the prostate gland. No suspicious lymphadenopathy. Vasculature: Calcification of the aorta without aneurysm. Musculoskeletal: Degenerative changes of the spine without suspicious osseous lesion or compression fracture. Pelvis: The prostate gland is enlarged. A Smith catheter and air are seen within the urinary bladder. IMPRESSION: 1. Contrast and free air are seen between the prostate gland and rectum which was not seen on prior CT of 08/17/2021. Patient has reported history of perineal spacer injection which likely accounts for this finding. 2. No other acute abnormality is seen within the chest, abdomen, or pelvis. Dictated by: Dictated on workstation # [id number]
[2021-12-03] MEDS ORDERED: FAMOTIDINE 20MG/2ML IV (PEPCID) IVP ONE (10:15)
[2021-12-03] MEDS ORDERED: PANTOPRAZOLE 40 MG (PROTONIX) VIAL IV ONE (10:15)
--- NOTE | 2021-12-03 11:25 | CONSULTATION REPORT ---
DATE OF SERVICE: 12/03/2021 ATTENDING PHYSICIAN: Dr. Gutiérrez. SUMMARY: A 76-year-old white man known to me with cancer of the prostate, scheduled to have external beam radiation therapy for the cancer. Yesterday, we placed a SpaceOAR between the rectum and prostate perineally to protect the rectum against radiation. It was uneventful and easily performed. There was no catheter used. There was no contrast used. He presented to the emergency room with urinary retention. Catheter was inserted with recovery of 2200 mL of clear urine. He also presented with some pain in the left upper quadrant and lower left chest, no abnormality found on CT. The pain was completely gone after draining the bladder. The patient said that early this morning, he threw up with some blood in it. He also has a history of hemorrhoids. The patient is feeling fine. His abdomen is soft and I discussed the case with our radiologist to correct the reading that was mentioning cystogram and contrast in the bladder, injection, and so forth. IMPRESSION: Urinary retention, CA of the prostate. PLAN: Leave the Smith catheter in. Tell the patient to drink orange juice and fluid contained electrolytes. We will put him on Flomax and Proscar. We will see him back in the office next . At that time, we will give him a trial of voiding. Any problems, he will contact our office or come back to the emergency room. Job ID: [id number] DocumentID: [id number] Dictated Date: 12/03/2021 10:12:14 Director Of Database Marketing Date: 12/03/2021 11:24:05 Dictated By: EMILIANA BRADSHAW MD
--- NOTE | 2021-12-03 11:35 | ED Abdominal Pain ---
General Chief Complaint: - Reproductive Stated Complaint: VOMITING,CAN'T URINATE,LEFT SIDE PAIN Nursing Triage Note: ARRIVED VIA AMB TO ROOM 06. HAD A CYSTO WITH DR BRADSHAW YESTERDAY. COMPLAINS OF TROUBLE PEEING AND VOMITING BLOOD THAT STARTED AT MIDNOC. STATES HE HAS NOT TAKEN ANY OF THE MEDS THAT WERE PRESCRIBED. PT BROKE OUT INTO A SWEAT WHEN HE LAYED ON THE BED. DENIES CHEST PAIN. Source of Information: Patient Exam Limitations: No Limitations History of Present Illness Date Seen by Provider: Dec 03, 2021 Time Seen by Provider: 06:54 Initial Comments This is 76-year-old gentleman with prostate cancer presents to the emergency room via private vehicle with inability to urinate since last night. He has significant abdominal pain as well as left flank and left lateral chest pain. His pain is new today. He had a procedure with Dr. Crocker injecting radiopaque material in the potential space between the prostate and the rectum for rectal protection in preparation for radiation therapy to treat his prostate cancer. His left flank/left upper quadrant and left chest wall pain are constant and not changed with movement or deep breathing. Those areas are tender to palpation. Smith catheter was placed during assessment yielding 2200 mL of urine. Patient felt much better after draining the bladder. He is on Toradol and Cipro. Patient believes he vomited about 1 cup of red blood this morning. He is not nauseated at present. He is currently taking Cipro and Toradol prescribed after the procedure yesterday. Patient has appointment on Tuesday with the [facility] to get set up for radiation. Allergies and Home Medications Allergies Coded Allergies: No Known Drug Allergies (Unverified , 08/08/09) Patient Home Medication List Home Medication List Reviewed: Yes Amlodipine Besylate (Amlodipine Besylate) 10 Mg Tablet, 10 MG PO DAILY, (Reported) Entered as Reported by: CONCEPCION OSBORN on 11/25/21 1355 Atorvastatin Calcium (Atorvastatin Calcium) 40 Mg Tablet, 40 MG PO DAILY, (Reported) Entered as Reported by: CONCEPCION OSBORN on 11/25/21 1355 Carvedilol (Carvedilol) 12.5 Mg Tablet, 12.5 MG PO BID, (Reported) Entered as Reported by: CONCEPCION OSBORN on 11/25/21 1355 Ciprofloxacin HCl (Cipro) 500 Mg Tablet, 500 MG PO BID Prescribed by: KENAN VAUGHN on 12/02/21 0829 Finasteride (Proscar) 5 Mg Tablet, 5 MG PO DAILY Prescribed by: SHASHI FRIEDMAN on 12/03/21 1138 Hydrochlorothiazide (Hydrochlorothiazide) 12.5 Mg Tablet, 12.5 MG PO DAILY, (Reported) Entered as Reported by: CONCEPCION OSBORN on 11/25/21 1355 Ketorolac Tromethamine (Ketorolac Tromethamine) 10 Mg Tablet, 10 MG PO Q6H Prescribed by: KENAN VAUGHN on 12/02/21 0829 Pantoprazole Sodium (Protonix) 40 Mg Tablet.dr, 40 MG PO DAILY Prescribed by: SHASHI FRIEDMAN on 12/03/21 1138 Tamsulosin HCl (Flomax) 0.4 Mg Cap, 0.4 MG PO DAILY Prescribed by: SHASHI FRIEDMAN on 12/03/21 1138 Review of Systems Review of Systems Constitutional: no symptoms reported EENTM: No Symptoms Reported Respiratory: See HPI Cardiovascular: No Symptoms Reported Gastrointestinal: See HPI Genitourinary: No Symptoms Reported Musculoskeletal: see HPI Skin: no symptoms reported Psychiatric/Neurological: No Symptoms Reported Endocrine: No Symptoms Reported Hematologic/Lymphatic: No Symptoms Reported Past Rekzhns-Mynnvc-Booefn Hx Patient Social History Tobacco Use?: Yes Tobacco type used: Cigarettes Smoking Status: Former Smoker (Quit December 01, 2021) Substance use?: No Alcohol Use?: No Immunizations Up To Date First/Initial COVID19 Vaccinat: yes Second COVID19 Vaccination Stanton: 08/18 Third COVID19 Vaccination Date: yes COVID19 Vaccine Accounting Director: GEOVANNY Seasonal Allergies Seasonal Allergies: No Past Medical History Surgeries: Yes (R wrist cyst removed) Eye Surgery (Cataract) Respiratory: Yes (COVID-15 June 2021) Currently Using CPAP: No Currently Using BIPAP: No Cardiac: Yes Coronary Artery Disease, High Cholesterol, Hypertension Neurological: Yes Stroke Reproductive Disorders: No Sexually Transmitted Disease: No Genitourinary: Yes (prostate ca) Gastrointestinal: No Musculoskeletal: No Endocrine: No HEENT: No (cataract removed) Cancer: Yes Prostate Did You Recieve Any Treatments: No Psychosocial: No Blood Disorders: No Physical Exam Vital Signs Vital Signs - First Documented 12/03/21 07:10 Temp 36.0 Pulse 89 Resp 16 B/P (MAP) 181/113 (135) Pulse Ox 96 O2 Delivery Room Air Capillary Refill : Less Than 3 Seconds Height/Weight/BMI Height: '" Weight: lbs. oz. kg; 28.00 BMI Method: General Appearance: WD/WN, mild distress HEENT: PERRL/EOMI, normal ENT inspection Neck: normal inspection Respiratory: lungs clear, normal breath sounds, no respiratory distress, no accessory muscle use, other (Tenderness over the left lateral lower chest wall) Cardiovascular: regular rate, rhythm, no edema, no murmur Gastrointestinal: normal bowel sounds, soft, tenderness (Left upper quadrant) Extremities: non-tender, normal inspection, no pedal edema Neurologic/Psychiatric: installment account checker II-XII nml as tested, no motor/sensory deficits, alert, normal mood/affect, oriented x 3 Skin: normal color, warm/dry Progress/Results/Core Measures Results/Orders Lab Results Laboratory Tests Test 12/03/21 07:23 12/03/21 07:44 Range/Units White Blood Count 20.1 H 4.3-11.0 10^3/uL Red Blood Count 4.75 4.30-5.52 10^6/uL Hemoglobin 14.8 13.3-17.7 g/dL Hematocrit 42 40-54 % Mean Corpuscular Volume 89 80-99 fL Mean Corpuscular Hemoglobin 31 25-34 pg Mean Corpuscular Hemoglobin Concent 35 32-36 g/dL Red Cell Distribution Width 12.6 10.0-14.5 % Platelet Count 288 130-400 10^3/uL Mean Platelet Volume 9.3 9.0-12.2 fL Immature Granulocyte % (Auto) 0 % Neutrophils (%) (Auto) 83 H 42-75 % Lymphocytes (%) (Auto) 9 L 12-44 % Monocytes (%) (Auto) 8 0-12 % Eosinophils (%) (Auto) 0 0-10 % Basophils (%) (Auto) 0 0-10 % Neutrophils # (Auto) 16.6 H 1.8-7.8 10^3/uL Lymphocytes # (Auto) 1.7 1.0-4.0 10^3/uL Monocytes # (Auto) 1.7 H 0.0-1.0 10^3/uL Eosinophils # (Auto) 0.0 0.0-0.3 10^3/uL Basophils # (Auto) 0.0 0.0-0.1 10^3/uL Immature Granulocyte # (Auto) 0.1 0.0-0.1 10^3/uL Neutrophils % (Manual) 92 % Lymphocytes % (Manual) 4 % Monocytes % (Manual) 4 % Eosinophils % (Manual) 0 % Basophils % (Manual) 0 % Band Neutrophils 0 % Blood Morphology Comment NORMAL Prothrombin Time 13.6 12.2-14.7 SEC INR Comment 1.0 0.8-1.4 Activated Partial Thromboplast Time 27 24-35 SEC Sodium Level 127 L 135-145 MMOL/L Potassium Level 4.1 3.6-5.0 MMOL/L Chloride Level 93 L 98-107 MMOL/L Carbon Dioxide Level 21 21-32 MMOL/L Anion Gap 13 5-14 MMOL/L Blood Urea Nitrogen 18 7-18 MG/DL Creatinine 1.15 0.60-1.30 MG/DL Estimat Glomerular Filtration Rate 62 BUN/Creatinine Ratio 16 Glucose Level 146 H 70-105 MG/DL Calcium Level 9.5 8.5-10.1 MG/DL Corrected Calcium 9.3 8.5-10.1 MG/DL Total Bilirubin 0.4 0.1-1.0 MG/DL Aspartate Amino Transf (AST/SGOT) 19 5-34 U/L Alanine Aminotransferase (ALT/SGPT) 16 0-55 U/L Alkaline Phosphatase 82 40-136 U/L C-Reactive Protein High Sensitivity 0.20 0.00-0.50 MG/DL Total Protein 7.3 6.4-8.2 GM/DL Albumin 4.3 3.2-4.5 GM/DL Lipase 13 8-78 U/L Urine Color YELLOW Urine Clarity CLEAR Urine pH 6.0 5-9 Urine Specific Bixby 1.010 L 1.016-1.022 Urine Protein NEGATIVE NEGATIVE Urine Glucose (UA) TRACE H NEGATIVE Urine Ketones NEGATIVE NEGATIVE Urine Nitrite NEGATIVE NEGATIVE Urine Bilirubin NEGATIVE NEGATIVE Urine Urobilinogen 0.2 < = 1.0 MG/DL Urine Leukocyte Esterase NEGATIVE NEGATIVE Urine RBC (Auto) NEGATIVE NEGATIVE Urine RBC NONE /HPF Urine WBC NONE /HPF Urine Squamous Epithelial Cells NONE /HPF Urine Crystals NONE /LPF Urine Bacteria NEGATIVE /HPF Urine Casts NONE /LPF Urine Mucus NEGATIVE /LPF Urine Culture Indicated NO My Orders Orders - SHASHI MARTINEZ MD Ed Iv/Invasive Line Start (12/03/21 06:54) Lactated Ringers (Lr 1000 Ml Iv Solution (12/03/21 07:00) Cbc With Automated Diff (12/03/21 06:54) Comprehensive Metabolic Panel (12/03/21 06:54) Lipase (12/03/21 06:54) Ua Culture If Indicated (12/03/21 06:54) Ondansetron Injection (Zofran Injectio (12/03/21 07:00) Bladder Scan (12/03/21 06:56) Manual Differential (12/03/21 07:23) Hs C Reactive Protein (12/03/21 08:04) Fentanyl Inj (Sublimaze Injection) (12/03/21 08:30) Protime With Inr (12/03/21 08:20) Partial Thromboplastin Time (12/03/21 08:20) Ct Chest/Abdomen/Pelvis W (12/03/21 08:24) Iohexol Injection (Omnipaque 350 Mg/Ml 1 (12/03/21 08:30) Received Contrast (Hold Metformin- Contr (12/03/21 08:30) Sodium Chloride Flush (Catheter Flush Sy (12/03/21 08:30) Ns (Ivpb) (Sodium Chloride 0.9% Ivpb Bag (12/03/21 08:30) Pantoprazole Injection (Protonix Injecti (12/03/21 10:15) Famotidine Injection (Pepcid Injection) (12/03/21 10:15) Medications Given in ED Current Medications Medications Dose Ordered Sig/Ankit Route Start Time Stop Time Status Last Admin Dose Admin Famotidine 20 mg ONCE ONCE IVP 12/03/21 10:15 12/03/21 10:16 DC 12/03/21 10:29 20 MG Fentanyl Citrate 50 mcg ONCE ONCE IVP 12/03/21 08:30 12/03/21 08:31 DC 12/03/21 08:26 50 MCG Iohexol 100 ml ONCE ONCE IV 12/03/21 08:30 12/03/21 08:31 DC 12/03/21 08:52 94 ML Pantoprazole 40 mg ONCE ONCE IV 12/03/21 10:15 12/03/21 10:16 DC 12/03/21 10:28 40 MG Sodium Chloride 10 ml NEEDED PRN IV 12/03/21 08:30 12/03/21 11:53 DC 12/03/21 08:52 10 ML Sodium Chloride 100 ml ONCE ONCE IV 12/03/21 08:30 12/03/21 08:31 DC 12/03/21 08:52 80 ML Vital Signs/I&O 12/03/21 12/03/21 07:10 11:53 Temp 36.0 Pulse 89 78 Resp 16 16 B/P (MAP) 181/113 (135) 148/71 Pulse Ox 96 98 O2 Delivery Room Air Room Air Blood Pressure Mean: 135 Progress Progress Note : Progress Note Smith catheter was placed yielding 2200 mL of urine. Patient felt better after that. However, Smith catheter did not alleviate the pain in the left upper quadrant and left chest. Fentanyl was given and completely resolved his pain. Pain did not return. Work-up included CT of the chest, abdomen and pelvis which was unremarkable and did not reveal any source of his left upper quadrant and chest wall pain. He did receive Zofran, Protonix, and Pepcid as GI treatment. No further vomiting occurred while in the ER. Dr. Bradshaw plans to refer him for endoscopy at his follow-up appointment next week. See discharge instructions for further discussion. Dr. Bradshaw presented to the ER to see the patient and review CT scan. He explained CT scan findings as expected in context of the spacer injection procedure performed yesterday. Diagnostic Imaging Diagonstic Imaging: CT Plain Films/CT/US/NM/MRI: abdomen, pelvis Comments CT abdomen and pelvis viewed by me and report reviewed. Discussed with Dr. Bradshaw. See report below: NAME: KENDALL GUILLAUME [facility] REC#: [id number] PT STATUS: REG ER : 1945 PHYSICIAN: SHASHI MARTINEZ MD ADMIT DATE: 12/03/21/ER Signed Date of Exam:12/03/21 CT CHEST/ABDOMEN/PELVIS W EXAMINATION: CT chest, abdomen and pelvis with intravenous contrast. TECHNIQUE: Multiple contiguous axial images were obtained through the chest, abdomen and pelvis after the uneventful administration of intravenous contrast. All CT scans use one or more of the following dose optimizing techniques: automated exposure control, MA and/or KvP adjustment based on patient size and exam type or iterative reconstruction. HISTORY: Chest wall and LUQ pain COMPARISON: 08/17/2021, 06/26/2021 FINDINGS: Thyroid: The visualized thyroid gland is normal. Mediastinum: Heart size is normal without significant pericardial effusion. Calcifications of the aorta and coronary vessels. Thoracic aorta is normal in caliber. No suspicious lymphadenopathy. Lungs and airways: The lungs are clear without consolidation, pleural effusion, or pneumothorax. No suspicious pulmonary lesion. There is atelectasis within the dependent lungs. The airways are normal. Solid organs: The liver is normal without focal lesion. The gallbladder is normal. There is no biliary ductal dilation. Pancreas is normal. Spleen is normal. Adrenal glands are normal. The kidneys are normal without hydronephrosis. Bowel: There is diffuse wall thickening of the esophagus. There is no bowel obstruction. The colon and appendix are normal. Peritoneum: There is contrast and free air seen anterior to the rectum and posterior to the prostate gland. No suspicious lymphadenopathy. Vasculature: Calcification of the aorta without aneurysm. Musculoskeletal: Degenerative changes of the spine without suspicious osseous lesion or compression fracture. Pelvis: The prostate gland is enlarged. A Smith catheter and air are seen within the urinary bladder. IMPRESSION: 1. Contrast and free air are seen between the prostate gland and rectum which was not seen on prior CT of 08/17/2021. Patient has reported history of perineal spacer injection which likely accounts for this finding. 2. No other acute abnormality is seen within the chest, abdomen, or pelvis. Dictated by: Dictated on workstation # [id number] Dict: 12/03/2108 Trans: 12/03/21 1115 [facility] [id number] Interpreted by: AUTUMN DING DO Electronically signed by: AUTUMN DING DO 12/03/21 1115 Departure Impression Primary Impression: Urinary obstruction Additional Impressions: Prostate cancer Left flank pain Left-sided chest wall pain Hematemesis Qualified Codes: K92.0 - Hematemesis Disposition: 01 HOME, SELF-CARE Condition: Improved (ERASED) Departure-Patient Inst. Decision time for Depature: 11:38 Referrals: [facility] (PCP/Family) Primary Care Physician Patient Instructions: How to Care for Your Smith Catheter, Male, Prostate Cancer Add. Discharge Instructions: Stop oral ketorolac (Toradol). Use Tylenol (acetaminophen) up to 1000 mg every 6 hours as needed for pain. Start Protonix to protect your stomach. Start Proscar and Flomax to help shrink your prostate. Leave your Smith catheter in place until you follow-up with Dr. Bradshaw next week. Call his clinic today to confirm appointment time. Try to keep your catheter bag below the level of your bladder and empty the bag often. Dr. Bradshaw will assist you with a referral to a surgeon for scoping of your stomach to further evaluate your pain and the vomiting of blood. Avoid the following: Eating large meals, eating close to bedtime, caffeine, carbonation, citrus fruits and juices, tomato products, chocolate, mints, NSAID medications such as ibuprofen or naproxen, alcohol, tobacco, spicy foods, or anything else you know irritates your stomach. Return to the ER if you have worsening symptoms including recurrent episodes of vomiting of blood. Call with questions or concerns. All discharge instructions reviewed with patient and/or family. Voiced understanding. Scripts Pantoprazole Sodium (Protonix) 40 Mg Tablet.dr 40 MG PO DAILY, #30 TAB Prov: SHASHI MARTINEZ MD 12/03/21 Finasteride (Proscar) 5 Mg Tablet 5 MG PO DAILY, #30 TAB Prov: SHASHI MARTINEZ MD 12/03/21 Tamsulosin HCl (Flomax) 0.4 Mg Cap 0.4 MG PO DAILY, #30 CAP Prov: SHASHI MARTINEZ MD 12/03/21 Copy Copies To 1: EMILIANA BRADSHAW MD Copies To 2: CONNOR BURGOS JOSHUA T MD Dec 03, 2021 11:35
[2021-12-03] MEDS ORDERED: TMSL.4C PO (11:38)
[2021-12-03] MEDS ORDERED: PANT40TA2 PO (11:38)
[2021-12-03] MEDS ORDERED: FINA5TAB PO (11:38)
[2021-12-03 11:53] VITALS: BP 148/71
== END 2021-12-03 11:53 | disposition home or self-care (01) ==
LOC: EDUNIT# 06:40 → ER 06:44
DX: C61 Malignant neoplasm of prostate (principal); N13.9 Obstructive and reflux uropathy, unspecified; K92.0 Hematemesis; R07.89 Other chest pain; I10 Essential (primary) hypertension; E78.00 Pure hypercholesterolemia, unspecified; I25.10 Atherosclerotic heart disease of native coronary artery without angina pectoris; Z86.73 Personal history of transient ischemic attack (TIA), and cerebral infarction without residual deficits; Z87.891 Personal history of nicotine dependence; Z79.899 Other long term (current) drug therapy
CPT/HCPCS: 36415; 51702; 71260; 74177; 80053; 81000; 83690; 85007; 85027; 85610; 85730; 86141; 96361; 96374; 96375

== ENCOUNTER 2021-12-12 15:07 | Emergency (ER) | payer MEDICARE, MEDICAID ==
[~2021-12-12] VITALS: Ht 160 cm; Wt 72.6 kg
[~2021-12-12 15:07] MED LIST changes: +PANT40TA2 PO
[2021-12-12 15:32] LABS: BILIRUBIN,URINE NEGATIVE (NEGATIVE); CLARITY,URINE CLEAR; COLOR,URINE YELLOW; GLUCOSE, URINE (UA) NEGATIVE (NEGATIVE); KETONES,URINE NEGATIVE (NEGATIVE); LEUKOCYTE ESTERASE ,URINE 2+ (NEGATIVE); NITRITE,URINE NEGATIVE (NEGATIVE); PH,URINE 6.5 (5-9); PROTEIN,URINE TRACE (NEGATIVE)
[2021-12-12 15:35] LABS: RBC,URINE 0-2 /HPF
[2021-12-12 15:36] LABS: BACTERIA,URINE NEGATIVE /HPF
--- NOTE | 2021-12-12 16:35 | ED GU-Male ---
General Chief Complaint: - Reproductive Stated Complaint: PROBLEMS URINATING Nursing Triage Note: PT AMB TO FT 1 W REPORTS OF URINARY PROBLEMS SX CATHETER REMOVAL. PT REPORTS HE HAD A CATHETER PLACED IN THIS ED AND CATHETER WAS IN X8 DAYS, REMOVED YESTERDAY AT DR. BRADSHAW'S OFFICE. PT C/O DRIBBLING, BURNING, AND BLADDER FULLNESS TODAY. A&OX4. Source: patient Exam Limitations: no limitations History of Present Illness Date Seen by Provider: Dec 12, 2021 Allergies and Home Medications Allergies Coded Allergies: No Known Drug Allergies (Unverified , 08/08/09) Patient Home Medication List Amlodipine Besylate (Amlodipine Besylate) 10 Mg Tablet, 10 MG PO DAILY, (Reported) Entered as Reported by: CONCEPCION OSBORN on 11/25/21 1355 Atorvastatin Calcium (Atorvastatin Calcium) 40 Mg Tablet, 40 MG PO DAILY, (Reported) Entered as Reported by: CONCEPCION OSBORN on 11/25/21 1355 Carvedilol (Carvedilol) 12.5 Mg Tablet, 12.5 MG PO BID, (Reported) Entered as Reported by: CONCEPCION OSBORN on 11/25/21 1355 Ciprofloxacin HCl (Cipro) 500 Mg Tablet, 500 MG PO BID Prescribed by: KENAN VAUGHN on 12/02/21 0829 Finasteride (Proscar) 5 Mg Tablet, 5 MG PO DAILY Prescribed by: SHASHI FRIEDMAN on 12/03/21 1138 Hydrochlorothiazide (Hydrochlorothiazide) 12.5 Mg Tablet, 12.5 MG PO DAILY, (Reported) Entered as Reported by: CONCEPCION OSBORN on 11/25/21 1355 Ketorolac Tromethamine (Ketorolac Tromethamine) 10 Mg Tablet, 10 MG PO Q6H Prescribed by: KENNA VAUGHN on 12/02/21 0829 Pantoprazole Sodium (Protonix) 40 Mg Tablet.dr, 40 MG PO DAILY Prescribed by: SHASHI FRIEDMAN on 12/03/21 1138 Tamsulosin HCl (Flomax) 0.4 Mg Cap, 0.4 MG PO DAILY Prescribed by: SHASHI FRIEDMAN on 12/03/21 1138 Past Ybtbspy-Cvqasf-Yihtcm Hx Patient Social History Tobacco Use?: Yes Tobacco type used: Cigarettes Use of E-Cig and/or Vaping dev: No Substance use?: No Alcohol Use?: No Immunizations Up To Date Influenza Vaccine Up-to-Date: Yes; Up-to-Date First/Initial COVID19 Vaccinat: 07/21/2021 Second COVID19 Vaccination Stanton: 08/21/2021 Third COVID19 Vaccination Date: yes 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: [employer] Seasonal Allergies Seasonal Allergies: No Past Medical History Surgeries: Yes (R wrist cyst removed) Eye Surgery Respiratory: Yes (COVID-15 June 2021) Currently Using CPAP: No Currently Using BIPAP: No Cardiac: Yes Coronary Artery Disease, High Cholesterol, Hypertension Neurological: Yes Stroke Reproductive Disorders: No Sexually Transmitted Disease: No Genitourinary: Yes (prostate ca) Gastrointestinal: No Musculoskeletal: No Endocrine: No HEENT: No (cataract removed) Cancer: Yes Prostate Did You Recieve Any Treatments: No Psychosocial: No Blood Disorders: No Physical Exam Vital Signs Vital Signs - First Documented 12/12/21 15:13 Temp 35.9 Pulse 83 Resp 20 B/P (MAP) 154/78 (103) Pulse Ox 96 O2 Delivery Room Air Capillary Refill : Less Than 3 Seconds Height, Weight, BMI Height: '" Weight: lbs. oz. kg; 28.00 BMI Method: Progress/Results/Core Measures Suspected Sepsis SIRS Temperature: Pulse: 83 Respiratory Rate: 20 Blood Pressure 154 /78 Mean: 103 Results/Orders Lab Results Laboratory Tests Test 12/12/21 15:14 Range/Units Urine Color YELLOW Urine Clarity CLEAR Urine pH 6.5 5-9 Urine Specific [place] 1.010 L 1.016-1.022 Urine Protein TRACE H NEGATIVE Urine Glucose (UA) NEGATIVE NEGATIVE Urine Ketones NEGATIVE NEGATIVE Urine Nitrite NEGATIVE NEGATIVE Urine Bilirubin NEGATIVE NEGATIVE Urine Urobilinogen 0.2 < = 1.0 MG/DL Urine Leukocyte Esterase 2+ H NEGATIVE Urine RBC (Auto) 3+ H NEGATIVE Urine RBC 0-2 /HPF Urine WBC 2-5 /HPF Urine Squamous Epithelial Cells NONE /HPF Urine Crystals NONE /LPF Urine Bacteria NEGATIVE /HPF Urine Casts NONE /LPF Urine Mucus NEGATIVE /LPF Urine Culture Indicated YES My Orders Orders - SHASHI MARTINEZ MD Smith Cath (12/12/21 15:24) Vital Signs/I&O 1/15/22 15:13 Temp 35.9 Pulse 83 Resp 20 B/P (MAP) 154/78 (103) Pulse Ox 96 O2 Delivery Room Air Capillary Refill : Less Than 3 Seconds Blood Pressure Mean: 103 Departure Impression Primary Impression: Urinary obstruction Disposition: 01 HOME, SELF-CARE Condition: Improved Departure-Patient Inst. Referrals: [facility] (PCP/Family) Primary Care Physician Patient Instructions: How to Care for Your Smith Catheter, Male, Urinary Retention (DC) Add. Discharge Instructions: Increase Flomax to twice daily. Continue finasteride daily. Start Urecholine 25 mg before each meal and at bedtime. Empty your Smith bag frequently and try to keep the Smith bag below the level of your bladder. Keep your appointment with Dr. Bradshaw next week. Return to care if you have any complications. All discharge instructions reviewed with patient and/or family. Voiced understanding. Scripts Bethanechol Chloride (Bethanechol Chloride) 25 Mg Tablet 25 MG PO ACHS, #120 TAB Prov: SHASHI MARTINEZ MD 12/12/21 Tamsulosin HCl (Flomax) 0.4 Mg Cap 0.4 MG PO BID, #60 CAP Prov: SHASHI MARTINEZ MD 12/12/21 SHASHI MARTINEZ MD Dec 12, 2021 16:35
[2021-12-12] MEDS ORDERED: TMSL.4C PO (16:36)
[2021-12-12] MEDS ORDERED: BETH25TA2 PO (16:36)
[2021-12-12 17:00] VITALS: BP 122/63
== END 2021-12-12 17:00 | disposition home or self-care (01) ==
LOC: EDUNIT# 15:07 → ER 15:10
DX: N13.9 Obstructive and reflux uropathy, unspecified (principal); I10 Essential (primary) hypertension; E78.00 Pure hypercholesterolemia, unspecified; I25.10 Atherosclerotic heart disease of native coronary artery without angina pectoris; Z86.73 Personal history of transient ischemic attack (TIA), and cerebral infarction without residual deficits; Z79.899 Other long term (current) drug therapy
CPT/HCPCS: 51702; 81000; 87088

== ENCOUNTER 2021-12-18 10:17 | Emergency (ER) | payer MEDICARE, MEDICAID ==
[~2021-12-18] VITALS: Ht 160 cm; Wt 72.6 kg
[~2021-12-18 10:17] MED LIST changes: +BETH25TA2 PO
--- OUTSIDE RECORDS SUMMARY | 2021-12-18 10:21 | XMS REPORT | Clinical Summary ---
Author Author [facility] Organization [facility] Address Unknown Phone Unavailable Care Team Providers Care Hide Cleaner Name Role Phone NandoMeena EDDIE PCP Source Comments Some departments are not documenting in the electronic medical record. If you d o not see the information that you expected, contact Release of Information in [facility] [employer] Information Management department at [phone] for further assistan ce in locating additional records.[facility] Allergies No known active allergies Medications End [...] of prostate ca ncer and how the Hampton score is used in the risk stratification system together with PSA and clinical examination. I discussed the Hampton s core in detail with respect to [...] procedure. We have discussed the risk of care home neuropr axia, air emboli, DVT, PE, stroke, and . Survivorship I then discussed survivorship care [facility] h consists of monitoring for [...] referral; patient wi ll see locally in [place], [place] RTC prn Encounters Care Team Description [...] Comments Vital Sign 132/73 10/08/2021 9:42 AM EXPERIENTIAL THERAPIST Blood Pressure 67 10/08/2021 9:42 AM EXPERIENTIAL THERAPIST Pulse 36.7 C (98.1 F) 10/08/2021 9:42 AM EXPERIENTIAL THERAPIST Temperature 14 10/08/2021 9:42 AM EXPERIENTIAL THERAPIST Respiratory Rate 99% 10/08/2021 9:42 AM EXPERIENTIAL THERAPIST Oxygen Saturation - - Inhaled Oxygen Concentration 67.1 kg (148 lb) 10/08/2021 9:42 AM EXPERIENTIAL THERAPIST Weight 160.3 cm (5' 3.1") 10/08/2021 9:42 AM EXPERIENTIAL THERAPIST Height 26.13 10/08/2021 9:42 AM EXPERIENTIAL THERAPIST Body Mass Index Plan of Treatment Health [...] (3 - 02/18/2022 08/21/2021, Booster for Pfizer 07/21/2021 series) Results Not on filefrom Last 3 Months Insurance Type Payer Benefit Subscriber ID Effective Phone Address Plan / Dates Group Medicare MEDICARE MEDICARE [id number] 1993-P [phone] [address] [place] [address] [employer] MEDICAID A[employer]NA [id number] 2018-P [phone] [address] [address] [place] [id number] Advance Directives Patient Stock Wetter Explanation Type Date Recorded DPOA Advance 10/08/2021 12:00 AM Directive/DPOA Care Teams Start Date End Date Hide Cleaner Relationship Specialty 10/01/21 Meena Collier APRN PCP - General Nurse [address] [facility] [place] [address]
[2021-12-18 10:25] VITALS: BP 130/76
--- NOTE | 2021-12-18 10:29 | ED GU-Male ---
General Stated Complaint: CATHETER BAG LEAKING Source: patient Exam Limitations: no limitations History of Present Illness Date Seen by Provider: Dec 18, 2021 Time Seen by Provider: 10:15 Initial Comments Patient the ER by private conveyance with his spouse with chief complaint that he had a Smith catheter placed for urinary retention and the bag started l eaking. He called the urologist who instructed him to come to the ER to have the bag replaced. He is having no fevers chills nausea vomiting blood clots or other concerns. Allergies and Home Medications Allergies Coded Allergies: No Known Drug Allergies (Unverified , 08/08/09) Patient Home Medication List Home Medication List Reviewed: Yes Amlodipine Besylate (Amlodipine Besylate) 10 Mg Tablet, 10 MG PO DAILY, (Reported) Entered as Reported by: CONCEPCION OSBORN on 11/25/21 1355 Atorvastatin Calcium (Atorvastatin Calcium) 40 Mg Tablet, 40 MG PO DAILY, (Reported) Entered as Reported by: CONCEPCION OSBORN on 11/25/21 1355 Bethanechol Chloride (Bethanechol Chloride) 25 Mg Tablet, 25 MG PO ACHS Prescribed by: SHASHI FRIEDMAN on 12/12/21 1636 Carvedilol (Carvedilol) 12.5 Mg Tablet, 12.5 MG PO BID, (Reported) Entered as Reported by: CONCEPCION OSBORN on 11/25/21 1355 Ciprofloxacin HCl (Cipro) 500 Mg Tablet, 500 MG PO BID Prescribed by: KENAN VAUGHN on 12/02/21 0829 Finasteride (Proscar) 5 Mg Tablet, 5 MG PO DAILY Prescribed by: SHASHI FRIEDMAN on 12/03/21 1138 Hydrochlorothiazide (Hydrochlorothiazide) 12.5 Mg Tablet, 12.5 MG PO DAILY, (Reported) Entered as Reported by: CONCEPCION OSBORN on 11/25/21 1355 Ketorolac Tromethamine (Ketorolac Tromethamine) 10 Mg Tablet, 10 MG PO Q6H Prescribed by: KENAN VAUGHN on 12/02/21 0829 Pantoprazole Sodium (Protonix) 40 Mg Tablet.dr, 40 MG PO DAILY Prescribed by: SHASHI FRIEDMAN on 12/03/21 1138 Tamsulosin HCl (Flomax) 0.4 Mg Cap, 0.4 MG PO DAILY Prescribed by: SHASHI FRIEDMAN on 12/03/21 1138 Tamsulosin HCl (Flomax) 0.4 Mg Cap, 0.4 MG PO BID Prescribed by: SHASHI FRIEDMAN on 12/12/21 1636 Review of Systems Review of Systems Constitutional: No chills, No diaphoresis EENTM: No ear discharge, No ear pain Respiratory: No cough, No short of breath Cardiovascular: No chest pain, No palpitations All Other Systemes Reviewed Negative Unless Noted: Yes Past Slpcwih-Ncsjsm-Bmsjub Hx Patient Social History Tobacco Use?: No Use of E-Cig and/or Vaping dev: No Immunizations Up To Date First/Initial COVID19 Vaccinat: 07/21/2021 Second COVID19 Vaccination Stanton: 08/21/2021 Third COVID19 Vaccination Date: yes Seasonal Allergies Seasonal Allergies: No Past Medical History Surgeries: Yes (R wrist cyst removed) Eye Surgery Respiratory: Yes (COVID-15 June 2021) Currently Using CPAP: No Currently Using BIPAP: No Cardiac: Yes Coronary Artery Disease, High Cholesterol, Hypertension Neurological: Yes Stroke Reproductive Disorders: No Sexually Transmitted Disease: No Genitourinary: Yes (prostate ca) Gastrointestinal: No Musculoskeletal: No Endocrine: No HEENT: No (cataract removed) Cancer: Yes Prostate Did You Recieve Any Treatments: No Psychosocial: No Blood Disorders: No Physical Exam Vital Signs Capillary Refill : Height, Weight, BMI Height: '" Weight: lbs. oz. kg; 28.00 BMI Method: General Appearance: WD/WN, no apparent distress HEENT: PERRL/EOMI, pharynx normal Cardiovascular: normal peripheral pulses, regular rate, rhythm Progress/Results/Core Measures Suspected Sepsis SIRS Temperature: Pulse: Respiratory Rate: Blood Pressure / Mean: Results/Orders Vital Signs/I&O Capillary Refill : Progress Note : Time: 10:28 Progress Note We will address his catheter bag leak and allow him to follow-up outpatient. Patient is okay with this plan Departure Impression Primary Impression: Smith catheter problem Qualified Codes: T83.9XXA - Unspecified complication of genitourinary prosthetic device, implant and graft, initial encounter Disposition: 01 HOME, SELF-CARE Condition: Stable Departure-Patient Inst. Decision time for Depature: 10:29 Referrals: [facility] (PCP/Family) Primary Care Physician Patient Instructions: How to Care for Your Smith Catheter, Male Add. Discharge Instructions: Keep your follow-up appointment with Dr. Adams, urology. HEIDI HUNTER Dec 18, 2021 10:29
== END 2021-12-18 10:49 | disposition home or self-care (01) ==
LOC: EDUNIT# 10:17 → ER 10:18
DX: T83.098A Other mechanical complication of other urinary catheter, initial encounter (principal); I10 Essential (primary) hypertension; I25.10 Atherosclerotic heart disease of native coronary artery without angina pectoris; E78.00 Pure hypercholesterolemia, unspecified; Z86.73 Personal history of transient ischemic attack (TIA), and cerebral infarction without residual deficits; Z79.899 Other long term (current) drug therapy
CPT/HCPCS: 99281

== ENCOUNTER 2021-12-28 17:14 | Emergency (ER) | payer MEDICARE, MEDICAID ==
[~2021-12-28] VITALS: Ht 160 cm; Wt 12.6 kg
--- NOTE | 2021-12-28 17:29 | ED Abdominal Pain ---
General Stated Complaint: UNABLE TO URINATE Source of Information: Patient Exam Limitations: No Limitations History of Present Illness Date Seen by Provider: Dec 28, 2021 Time Seen by Provider: 17:20 Initial Comments 76-year-old male with past medical history of prostate cancer and urinary retention coming in due to urinary retention. He has had a Smith placed three times and they continue to try to pull it to see if he is able to urinate while changing of his prostate medications. They pulled it this morning, and he says he is only been able to have dribbles with extreme straining to try to urinate. He called his urologist and was referred here for Smith replacement. Denies any fever, dysuria, chest pain, shortness of breath, abdominal pain other than his lower abdominal distention from his full bladder, nausea, vomiting, diarrhea, or any other concerns. Allergies and Home Medications Allergies Coded Allergies: No Known Drug Allergies (Unverified , 08/08/09) Patient Home Medication List Home Medication List Reviewed: Yes Amlodipine Besylate (Amlodipine Besylate) 10 Mg Tablet, 10 MG PO DAILY, (Reported) Entered as Reported by: CONCEPCION OSBORN on 11/25/21 1355 Atorvastatin Calcium (Atorvastatin Calcium) 40 Mg Tablet, 40 MG PO DAILY, (Reported) Entered as Reported by: CONCEPCION OSBORN on 11/25/21 1355 Bethanechol Chloride (Bethanechol Chloride) 25 Mg Tablet, 25 MG PO ACHS Prescribed by: SHASHI FRIEDMAN on 12/12/21 1636 Carvedilol (Carvedilol) 12.5 Mg Tablet, 12.5 MG PO BID, (Reported) Entered as Reported by: CONCEPCION OSBORN on 11/25/21 1355 Ciprofloxacin HCl (Cipro) 500 Mg Tablet, 500 MG PO BID Prescribed by: KENAN VAUGHN on 12/02/21 0829 Finasteride (Proscar) 5 Mg Tablet, 5 MG PO DAILY Prescribed by: SHASHI FRIEDMAN on 12/03/21 1138 Hydrochlorothiazide (Hydrochlorothiazide) 12.5 Mg Tablet, 12.5 MG PO DAILY, (Reported) Entered as Reported by: CONCEPCION OSBORN on 11/25/21 1355 Ketorolac Tromethamine (Ketorolac Tromethamine) 10 Mg Tablet, 10 MG PO Q6H Prescribed by: KENAN VAUGHN on 12/02/21 0829 Pantoprazole Sodium (Protonix) 40 Mg Tablet.dr, 40 MG PO DAILY Prescribed by: SHASHI FRIEDMAN on 12/03/21 1138 Tamsulosin HCl (Flomax) 0.4 Mg Cap, 0.4 MG PO DAILY Prescribed by: SHASHI FRIEDMAN on 12/03/21 1138 Tamsulosin HCl (Flomax) 0.4 Mg Cap, 0.4 MG PO BID Prescribed by: SHASHI FRIEDMAN on 12/12/21 1636 Review of Systems Review of Systems Constitutional: No chills, No fever EENTM: No Blurred Vision Respiratory: Denies Cough Cardiovascular: Denies Chest Pain Gastrointestinal: Denies Abdominal Pain Genitourinary: Other (Difficulty urinating) Musculoskeletal: no symptoms reported Skin: no symptoms reported Psychiatric/Neurological: No Symptoms Reported Endocrine: No Symptoms Reported Hematologic/Lymphatic: No Symptoms Reported All Other Systems Reviewed Negative Unless Noted: Yes Past Pujbtsw-Snkjuw-Lxhneo Hx Patient Social History Tobacco Use?: Yes Immunizations Up To Date First/Initial COVID19 Vaccinat: 07/21/2021 Second COVID19 Vaccination Stanton: 08/21/2021 Third COVID19 Vaccination Date: yes Seasonal Allergies Seasonal Allergies: No Past Medical History Surgeries: Yes (R wrist cyst removed) Eye Surgery Respiratory: Yes (COVID-15 June 2021) Currently Using CPAP: No Currently Using BIPAP: No Cardiac: Yes Coronary Artery Disease, High Cholesterol, Hypertension Neurological: Yes Stroke Reproductive Disorders: No Sexually Transmitted Disease: No Genitourinary: Yes (prostate ca) Gastrointestinal: No Musculoskeletal: No Endocrine: No HEENT: No (cataract removed) Cancer: Yes Prostate Did You Recieve Any Treatments: No Psychosocial: No Blood Disorders: No Physical Exam Vital Signs Capillary Refill : Height/Weight/BMI Height: '" Weight: lbs. oz. kg; 28.00 BMI Method: General Appearance: WD/WN, no apparent distress HEENT: PERRL/EOMI, normal ENT inspection, pharynx normal Neck: non-tender, full range of motion, supple, normal inspection Respiratory: chest non-tender, lungs clear, normal breath sounds, no respiratory distress, no accessory muscle use Cardiovascular: regular rate, rhythm, no edema, no murmur Gastrointestinal: normal bowel sounds, soft; No distended, No guarding, No rebound; tenderness (lower abdomen over bladder but mild) Extremities: normal range of motion, non-tender, normal inspection, no pedal edema, no calf tenderness, normal capillary refill Back: normal inspection, no CVA tenderness, no vertebral tenderness Neurologic/Psychiatric: no motor/sensory deficits, alert, normal mood/affect Skin: normal color, warm/dry Lymphatic: no adenopathy Progress/Results/Core Measures Progress Progress Note : Progress Note 76-year-old male with above history coming in due to urinary retention. ABCs were intact and vitals were stable on presentation. We will replace the Smith and send a urinalysis. We will have him follow-up with Dr. Bradshaw. Departure Impression Primary Impression: Urinary retention Additional Impression: Smith catheter in place Disposition: 01 HOME, SELF-CARE Condition: Stable Departure-Patient Inst. Decision time for Depature: 17:55 Referrals: [facility] [place] Primary Care Physician EMILIANA BRADSHAW MD Patient Instructions: Urinary Retention (DC), How to Care for Your Smith Catheter, Male Add. Discharge Instructions: Please follow-up with Dr. Bradshaw and come up with a long-term plan for your urinary retention. DHEERAJ SINGER MD Dec 28, 2021 17:29
[2021-12-28 17:39] LABS: BILIRUBIN,URINE NEGATIVE (NEGATIVE); CLARITY,URINE CLEAR; COLOR,URINE YELLOW; GLUCOSE, URINE (UA) NEGATIVE (NEGATIVE); KETONES,URINE NEGATIVE (NEGATIVE); LEUKOCYTE ESTERASE ,URINE NEGATIVE (NEGATIVE); NITRITE,URINE NEGATIVE (NEGATIVE); PROTEIN,URINE NEGATIVE (NEGATIVE)
[2021-12-28 17:47] LABS: BACTERIA,URINE TRACE /HPF; RBC,URINE 0-2 /HPF; WBC,URINE 0-2 /HPF
[2021-12-28 18:00] VITALS: BP 136/90
== END 2021-12-28 18:00 | disposition home or self-care (01) ==
LOC: EDUNIT# 17:14 → ER 17:18
DX: R33.9 Retention of urine, unspecified (principal); Z46.6 Encounter for fitting and adjustment of urinary device; I10 Essential (primary) hypertension; I25.10 Atherosclerotic heart disease of native coronary artery without angina pectoris; E78.00 Pure hypercholesterolemia, unspecified; Z85.46 Personal history of malignant neoplasm of prostate; Z86.73 Personal history of transient ischemic attack (TIA), and cerebral infarction without residual deficits; Z86.16 Personal history of COVID-19; Z79.899 Other long term (current) drug therapy
CPT/HCPCS: 51702; 81000

== ENCOUNTER → 2021-12-28 | Outpatient (RCR) | payer MEDICARE, MEDICAID | END | disposition home or self-care (01) | LOC: ONC 12-07 09:21 | PROVIDERS: ATTEND Radiology Radiation Oncology | DX: Z51.0 Encounter for antineoplastic radiation therapy (principal); C61 Malignant neoplasm of prostate; E78.00 Pure hypercholesterolemia, unspecified; Z80.2 Family history of malignant neoplasm of other respiratory and intrathoracic organs | CPT/HCPCS: 77300; 77301; 77334; 77336; 77338; 77385 ==

== ENCOUNTER → 2022-01-25 | Outpatient (RCR) | payer MEDICARE, MEDICAID | END | disposition home or self-care (01) | LOC: ONC 12-29 08:05 | PROVIDERS: ATTEND Radiology Radiation Oncology | DX: Z51.0 Encounter for antineoplastic radiation therapy (principal); C61 Malignant neoplasm of prostate; E78.00 Pure hypercholesterolemia, unspecified; Z80.2 Family history of malignant neoplasm of other respiratory and intrathoracic organs | CPT/HCPCS: 77385; G0463; 77300; 77336; 77338; 77386 ==

== ENCOUNTER 2022-02-11 07:49 | Outpatient (RCR) | payer MEDICARE, MEDICAID ==
[2022-02-12] MEDS ORDERED: CEFU500T63 PO (18:43)
[2022-02-12] MEDS ORDERED: FLUC150T PO (18:43)
[2022-02-23] MEDS ORDERED: CEPH500T PO (02:10)
[2022-03-02] MEDS ORDERED: BETH50TA2 PO (10:47)
== END 2022-02-25 | disposition home or self-care (01) ==
LOC: ONC 07:49
PROVIDERS: ATTEND Radiology Radiation Oncology
DX: Z51.0 Encounter for antineoplastic radiation therapy (principal); C61 Malignant neoplasm of prostate; E78.00 Pure hypercholesterolemia, unspecified; Z80.2 Family history of malignant neoplasm of other respiratory and intrathoracic organs
CPT/HCPCS: 77385; G0463; 77336

== ENCOUNTER 2022-02-12 17:44 | Emergency (ER) | payer MEDICARE, MEDICAID ==
[~2022-02-12] VITALS: Ht 160 cm; Wt 68.0 kg
--- NOTE | 2022-02-12 18:24 | ED GU-Male ---
General Chief Complaint: - Reproductive Stated Complaint: NOT ABLE TO URINATE Source: patient Exam Limitations: no limitations History of Present Illness Date Seen by Provider: Feb 12, 2022 Time Seen by Provider: 18:20 Initial Comments To ER with reports of severe suprapubic discomfort and inability to urinate. He saw Dr. Adams this morning and had removal of Smith catheter. He has been able to urinate without difficulty all day until about an hour or 2 ago. He just had his last treatment of radiation for prostate cancer today. No fevers or chills. Timing/Duration: constant Severity/Quality: moderate Location: suprapubic Radiation: none Activities at Onset: none Prior Genitourinary Problems: none Associated Symptoms: denies symptoms Allergies and Home Medications Allergies Coded Allergies: No Known Drug Allergies (Unverified , 08/08/09) Patient Home Medication List Home Medication List Reviewed: Yes Amlodipine Besylate (Amlodipine Besylate) 10 Mg Tablet, 10 MG PO DAILY, (Reported) Entered as Reported by: CONCEPCION OSBORN on 11/25/21 1355 Atorvastatin Calcium (Atorvastatin Calcium) 40 Mg Tablet, 40 MG PO DAILY, (Reported) Entered as Reported by: CONCEPCION OSBORN on 11/25/21 1355 Bethanechol Chloride (Bethanechol Chloride) 25 Mg Tablet, 25 MG PO ACHS Prescribed by: SHASHI FRIEDMAN on 12/12/21 1636 Carvedilol (Carvedilol) 12.5 Mg Tablet, 12.5 MG PO BID, (Reported) Entered as Reported by: CONCEPCION OSBORN on 11/25/21 1355 Ciprofloxacin HCl (Cipro) 500 Mg Tablet, 500 MG PO BID Prescribed by: KENAN VAUGHN on 12/02/21 0829 Finasteride (Proscar) 5 Mg Tablet, 5 MG PO DAILY Prescribed by: SHASHI FRIEDMAN on 12/03/21 1138 Hydrochlorothiazide (Hydrochlorothiazide) 12.5 Mg Tablet, 12.5 MG PO DAILY, (Reported) Entered as Reported by: CONCEPCION OSBORN on 11/25/21 1355 Ketorolac Tromethamine (Ketorolac Tromethamine) 10 Mg Tablet, 10 MG PO Q6H Prescribed by: KENAN VAUGHN on 12/02/21 0829 Pantoprazole Sodium (Protonix) 40 Mg Tablet.dr, 40 MG PO DAILY Prescribed by: SHASHI FRIEDMAN on 12/03/21 1138 Tamsulosin HCl (Flomax) 0.4 Mg Cap, 0.4 MG PO DAILY Prescribed by: SHASHI FRIEDMAN on 12/03/21 1138 Tamsulosin HCl (Flomax) 0.4 Mg Cap, 0.4 MG PO BID Prescribed by: SHASHI FRIEDMAN on 12/12/21 1636 Review of Systems Review of Systems Constitutional: see HPI EENTM: see HPI Respiratory: no symptoms reported Cardiovascular: no symptoms reported Genitourinary: see HPI, other (retention) Musculoskeletal: no symptoms reported Skin: no symptoms reported Psychiatric/Neurological: No Symptoms Reported Endocrine: No Symptoms Reported Hematologic/Lymphatic: No Symptoms Reported Past Dupqnhx-Aayugd-Wailuu Hx Immunizations Up To Date First/Initial COVID19 Vaccinat: 07/21/2021 Second COVID19 Vaccination Stanton: 08/21/2021 Third COVID19 Vaccination Date: yes Seasonal Allergies Seasonal Allergies: No Past Medical History Surgeries: Yes (R wrist cyst removed) Eye Surgery Respiratory: Yes (COVID-15 June 2021) Currently Using CPAP: No Currently Using BIPAP: No Cardiac: Yes Coronary Artery Disease, High Cholesterol, Hypertension Neurological: Yes Stroke Reproductive Disorders: No Sexually Transmitted Disease: No Genitourinary: Yes (prostate ca) Gastrointestinal: No Musculoskeletal: No Endocrine: No HEENT: No (cataract removed) Cancer: Yes Prostate Did You Recieve Any Treatments: No Psychosocial: No Blood Disorders: No Physical Exam Vital Signs Capillary Refill : Height, Weight, BMI Height: '" Weight: lbs. oz. kg; 4.00 BMI Method: General Appearance: WD/WN, moderate distress HEENT: PERRL/EOMI, normal ENT inspection Neck: non-tender, full range of motion Cardiovascular: regular rate, rhythm, no murmur Respiratory: no respiratory distress, no accessory muscle use Gastrointestinal: normal bowel sounds, soft, tenderness (suprapubic tenderness and fullness consistent with a full bladder.) Male: normal genitalia, other (I was easily able to place a size 16 Congolese Smith catheter without any obstruction or resistance or difficulty. Immediate return of clear yellow urine and relief of his pain.) Extremities: normal range of motion, non-tender Neurologic/Psychiatric: alert, normal mood/affect, oriented x 3 Skin: normal color, warm/dry Progress/Results/Core Measures Suspected Sepsis SIRS Temperature: Pulse: Respiratory Rate: Blood Pressure / Mean: Results/Orders Lab Results Laboratory Tests Test 02/12/22 18:16 Range/Units Urine Color YELLOW Urine Clarity CLEAR Urine pH 6.5 5-9 Urine Specific [place] 1.010 L 1.016-1.022 Urine Protein TRACE H NEGATIVE Urine Glucose (UA) NEGATIVE NEGATIVE Urine Ketones NEGATIVE NEGATIVE Urine Nitrite NEGATIVE NEGATIVE Urine Bilirubin NEGATIVE NEGATIVE Urine Urobilinogen 0.2 < = 1.0 MG/DL Urine Leukocyte Esterase 2+ H NEGATIVE Urine RBC (Auto) NEGATIVE NEGATIVE Urine RBC NONE /HPF Urine WBC 10-25 H /HPF Urine Squamous Epithelial Cells NONE /HPF Urine Crystals NONE /LPF Urine Bacteria FEW H /HPF Urine Casts NONE /LPF Urine Mucus NEGATIVE /LPF Urine Yeast FEW H /HPF Urine Culture Indicated NO My Orders Orders - GAGE ANDRADE APRN Ua Culture If Indicated (02/12/22 18:19) Smith Cath (02/12/22 18:19) Vital Signs/I&O Capillary Refill : Departure Impression Primary Impression: Urinary retention Additional Impressions: Prostate CA Urinary tract infection Disposition: 01 HOME, SELF-CARE Condition: Stable Departure-Patient Inst. Decision time for Depature: 18:42 Referrals: [facility] [place] ([place]/Family) Primary Care Physician Patient Instructions: Urinary Tract Infection, Adult (DC), Urinary Retention Add. Discharge Instructions: 1. Follow-up with Dr. Adams. Return to ER for any concerns. All discharge instructions reviewed with patient and/or family. Voiced understanding. Scripts Fluconazole (Diflucan) 150 Mg Tablet 150 MG PO DAILY, #5 TAB Prov: GAGE ANDRADE APRN 02/12/22 Cefuroxime Axetil (Cefuroxime) 500 Mg Tablet 500 MG PO BID, #14 TAB Prov: GAGE ANDRADE APRN 02/12/22 GAGE ANDRADE APRN Feb 12, 2022 18:24
[2022-02-12 18:25] LABS: BILIRUBIN,URINE NEGATIVE (NEGATIVE); CLARITY,URINE CLEAR; COLOR,URINE YELLOW; GLUCOSE, URINE (UA) NEGATIVE (NEGATIVE); KETONES,URINE NEGATIVE (NEGATIVE); LEUKOCYTE ESTERASE ,URINE 2+ (NEGATIVE); NITRITE,URINE NEGATIVE (NEGATIVE); PH,URINE 6.5 (5-9); PROTEIN,URINE TRACE (NEGATIVE)
[2022-02-12 18:36] LABS: BACTERIA,URINE FEW /HPF; YEAST,URINE FEW /HPF
[2022-02-12] MEDS ORDERED: FLUC150T PO (18:43)
[2022-02-12] MEDS ORDERED: CEFU500T63 PO (18:43)
[2022-02-12 19:10] VITALS: BP 125/65
== END 2022-02-12 19:14 | disposition home or self-care (01) ==
LOC: EDUNIT# 17:44 → ER 17:46
DX: C61 Malignant neoplasm of prostate (principal); N39.0 Urinary tract infection, site not specified; Z86.16 Personal history of COVID-19
CPT/HCPCS: 51702; 81000

== ENCOUNTER 2022-02-23 01:17 | Emergency (ER) | payer MEDICARE, MEDICAID ==
[~2022-02-23 01:17] MED LIST changes: +CEFU500T63 PO; +FLUC150T PO
[2022-02-23 01:25] VITALS: BP 118/76
--- NOTE | 2022-02-23 01:42 | ED GU-Female ---
General Chief Complaint: - Reproductive Stated Complaint: CAN'T URINATE Source: patient Exam Limitations: no limitations History of Present Illness Date Seen by Provider: Feb 23, 2022 Time Seen by Provider: 01:26 Initial Comments Patient to the ER by private conveyance with his and chief complaint that he has been having some suprapubic pain pressure and inability to urinate since 11:00 last night, almost 3 hours ago. He had his Smith catheter removed about [address] Bradshaw, urology's office. This is his seventh Smith catheter in the past year. He was told that he would probably need surgery for his prostate. He has a history of prostatic cancer. He is not having any blood clots. No fevers or chills nausea or vomiting. He has not take anything for pain. He does not want a thing for pain at this time. Allergies and Home Medications Allergies Coded Allergies: No Known Drug Allergies (Unverified , 08/08/09) Patient Home Medication List Home Medication List Reviewed: Yes Amlodipine Besylate (Amlodipine Besylate) 10 Mg Tablet, 10 MG PO DAILY, (Reported) Entered as Reported by: CONCEPCION OSBORN on 11/25/21 1355 Atorvastatin Calcium (Atorvastatin Calcium) 40 Mg Tablet, 40 MG PO DAILY, (Reported) Entered as Reported by: CONCEPCION OSBORN on 11/25/21 1355 Bethanechol Chloride (Bethanechol Chloride) 25 Mg Tablet, 25 MG PO ACHS Prescribed by: SHASHI FRIEDMAN on 12/12/21 1636 Carvedilol (Carvedilol) 12.5 Mg Tablet, 12.5 MG PO BID, (Reported) Entered as Reported by: CONCEPCION OSBORN on 11/25/21 1355 Cefuroxime Axetil (Cefuroxime) 500 Mg Tablet, 500 MG PO BID Prescribed by: GAGE ANDRADE on 02/12/22 1843 Ciprofloxacin HCl (Cipro) 500 Mg Tablet, 500 MG PO BID Prescribed by: KENAN VAUGHN on 12/02/21 0829 Finasteride (Proscar) 5 Mg Tablet, 5 MG PO DAILY Prescribed by: SHASHI FRIEDMAN on 12/03/21 1138 Fluconazole (Diflucan) 150 Mg Tablet, 150 MG PO DAILY Prescribed by: GAGE ANDRADE on 02/12/22 1843 Hydrochlorothiazide (Hydrochlorothiazide) 12.5 Mg Tablet, 12.5 MG PO DAILY, (Reported) Entered as Reported by: CONCEPCION OSBORN on 11/25/21 1355 Ketorolac Tromethamine (Ketorolac Tromethamine) 10 Mg Tablet, 10 MG PO Q6H Prescribed by: KENAN VAUGHN on 12/02/21 0829 Pantoprazole Sodium (Protonix) 40 Mg Tablet.dr, 40 MG PO DAILY Prescribed by: SHASHI FRIEDMAN on 12/03/21 1138 Tamsulosin HCl (Flomax) 0.4 Mg Cap, 0.4 MG PO DAILY Prescribed by: SHASHI FRIEDMAN on 12/03/21 1138 Tamsulosin HCl (Flomax) 0.4 Mg Cap, 0.4 MG PO BID Prescribed by: SHASHI FRIEDMAN on 12/12/21 1636 Review of Systems Review of Systems Constitutional: No chills, No diaphoresis EENTM: No ear discharge, No hearing loss Respiratory: No cough, No short of breath Cardiovascular: No chest pain, No edema Gastrointestinal: No abdominal pain, No nausea, No vomiting Genitourinary: see HPI; denies dysuria; other (Urinary hesitancy inability to urinate) Musculoskeletal: No back pain, No joint pain Psychiatric/Neurological: Denies Anxiety, Denies Depressed All Other Systemes Reviewed Negative Unless Noted: Yes Past Ygvrabx-Ofgkdk-Fmaesv Hx Patient Social History Tobacco Use?: No Use of E-Cig and/or Vaping dev: No Immunizations Up To Date First/Initial COVID19 Vaccinat: 07/21/2021 Second COVID19 Vaccination Stanton: 08/21/2021 Third COVID19 Vaccination Date: yes Seasonal Allergies Seasonal Allergies: No Past Medical History Surgeries: Yes (R wrist cyst removed) Eye Surgery Respiratory: Yes (COVID-15 June 2021) Currently Using CPAP: No Currently Using BIPAP: No Cardiac: Yes Coronary Artery Disease, High Cholesterol, Hypertension Neurological: Yes Stroke Reproductive Disorders: No Sexually Transmitted Disease: No Genitourinary: Yes (prostate ca) Gastrointestinal: No Musculoskeletal: No Endocrine: No HEENT: No (cataract removed) Cancer: Yes Prostate Did You Recieve Any Treatments: No Psychosocial: No Blood Disorders: No Physical Exam Vital Signs Vital Signs - First Documented 02/23/22 01:25 Temp 36.7 Pulse 65 Resp 18 B/P (MAP) 118/76 (90) Pulse Ox 96 O2 Delivery Room Air Capillary Refill : Height, Weight, BMI Height: '" Weight: lbs. oz. kg; 26.00 BMI Method: General Appearance: WD/WN, mild distress HEENT: PERRL/EOMI, pharynx normal Neck: full range of motion, normal inspection Cardiovascular: normal peripheral pulses, regular rate, rhythm Respiratory: no respiratory distress, no accessory muscle use Gastrointestinal: normal bowel sounds, soft, tenderness (Mild tenderness suprapubic with prominence of bladder) Extremities: normal range of motion, non-tender, normal inspection, normal capillary refill Neurologic/Psychiatric: alert, normal mood/affect, oriented x 3 Progress/Results/Core Measures Suspected Sepsis SIRS Temperature: Pulse: Respiratory Rate: Blood Pressure / Mean: Results/Orders Lab Results Laboratory Tests Test 02/23/22 01:40 Range/Units Urine Color YELLOW Urine Clarity CLEAR Urine pH 6.0 5-9 Urine Specific [facility] 1.015 L 1.016-1.022 Urine Protein NEGATIVE NEGATIVE Urine Glucose (UA) NEGATIVE NEGATIVE Urine Ketones NEGATIVE NEGATIVE Urine Nitrite NEGATIVE NEGATIVE Urine Bilirubin NEGATIVE NEGATIVE Urine Urobilinogen 0.2 < = 1.0 MG/DL Urine Leukocyte Esterase 3+ H NEGATIVE Urine RBC (Auto) NEGATIVE NEGATIVE Urine RBC NONE /HPF Urine WBC 10-25 H /HPF Urine Crystals NONE /LPF Urine Bacteria TRACE /HPF Urine Casts NONE /LPF Urine Mucus NEGATIVE /LPF Urine Yeast FEW H /HPF Urine Culture Indicated YES My Orders Orders - HEIDI HUNTER Lidocaine 2% (Urojet) (Xylocaine Urojet) (02/23/22 01:45) Ua Culture If Indicated (02/23/22 01:43) Catheter(Urinary) Insert & Ass 03,15 (02/23/22 01:58) Urine Culture (02/23/22 01:40) Cephalexin Capsule (Keflex Capsule) (02/23/22 02:15) Medications Given in ED Current Medications Medications Dose Ordered Sig/Ankit Route Start Time Stop Time Status Last Admin Dose Admin Lidocaine HCl 10 ml ONCE ONCE TOP 02/23/22 01:45 02/23/22 01:46 DC 02/23/22 01:40 10 ML Vital Signs/I&O 02/23/22 01:25 Temp 36.7 Pulse 65 Resp 18 B/P (MAP) 118/76 (90) Pulse Ox 96 O2 Delivery Room Air Capillary Refill : Progress Note #1: Time: 01:42 Progress [address] Plan to place a Smith catheter using Urojet to decompress the bladder and have him follow-up with urology. Progress Note #2: Time: 02:08 Progress Note 900cc out. cephalexin and follow-up with Dr. Bradshaw, urology Departure Impression Primary Impression: Urine retention Additional Impression: Urinary tract infection Qualified Codes: N30.00 - Acute cystitis without hematuria Disposition: HOME, SELF-CARE Condition: Stable Departure-Patient Inst. Decision time for Depature: 02:09 Referrals: [facility] [place] (PCP/Family) Primary Care Physician EMILIANA BRADSHAW MD Patient Instructions: Urinary Obstruction (DC) Add. Discharge Instructions: Keflex 500 mg twice a day for 5 days. Follow-up with Dr. Bradshaw, urology. All discharge instructions reviewed with patient and/or family. Voiced understanding. Scripts Cephalexin (Cephalexin) 500 Mg Tablet 500 MG PO BID for 5 Days, #10 TAB 0 Refills Prov: HEIDI UHNTER 02/23/22 Copy Copies To 1: EMILIANA BRADSHAW MD, TITUS J Feb 23, 2022 01:42
[2022-02-23] MEDS ORDERED: LIDOCAINE UROJET 2% GEL 10 ML PKG TOP ONE (01:45)
[2022-02-23 01:50] LABS: BILIRUBIN,URINE NEGATIVE (NEGATIVE); CLARITY,URINE CLEAR; COLOR,URINE YELLOW; GLUCOSE, URINE (UA) NEGATIVE (NEGATIVE); KETONES,URINE NEGATIVE (NEGATIVE); LEUKOCYTE ESTERASE ,URINE 3+ (NEGATIVE); NITRITE,URINE NEGATIVE (NEGATIVE); PROTEIN,URINE NEGATIVE (NEGATIVE)
[2022-02-23 02:01] LABS: BACTERIA,URINE TRACE /HPF; YEAST,URINE FEW /HPF
[2022-02-23] MEDS ORDERED: CEPH500T PO (02:10)
[2022-02-23] MEDS ORDERED: CEPHALEXIN 250 MG (KEFLEX) CAP PO ONE (02:15)
== END 2022-02-23 02:32 | disposition home or self-care (01) ==
LOC: EDUNIT# 01:17 → ER 01:20
DX: R33.9 Retention of urine, unspecified (principal); N39.0 Urinary tract infection, site not specified; Z85.46 Personal history of malignant neoplasm of prostate
CPT/HCPCS: 51702; 81000; 87077; 87088; 87186

== ENCOUNTER 2022-02-26 13:09 | Outpatient (CLI) | payer MEDICARE, MEDICAID ==
[~2022-02-26] VITALS: Ht 165.1 cm; Wt 72.7 kg
[~2022-02-26 13:09] MED LIST changes: +CEPH500T PO
[2022-03-02] MEDS ORDERED: BETH50TA2 PO (10:47)
== END 2022-03-01 13:57 | disposition home or self-care (01) ==
LOC: PREOP 13:09
PROVIDERS: ATTEND Urology
DX: Z01.818 Encounter for other preprocedural examination (principal)

== ENCOUNTER 2022-03-03 07:37 | Day surgery (SDC) | payer MEDICARE, MEDICAID ==
[2022-03-03] VITALS (11 sets, daily range): BP systolic 92–137; BP diastolic 59–71
[~2022-03-03] VITALS: Ht 165.1 cm; Wt 63.8 kg
[~2022-03-03 07:37] MED LIST changes: +BETH50TA2 PO
--- NOTE | 2022-03-03 08:03 | Progress Note-Pre Operative ---
Pre-Operative Progress Note H&P Reviewed The H&P was reviewed, patient examined and no changes noted. Date Seen by Provider: Mar 03, 2022 Time Seen by Provider: 08:02 Date H&P Reviewed: Mar 03, 2022 Time H&P Reviewed: 08:02 Pre-Operative Diagnosis: URINARY RETENTION AND CA PROSTATE EMILIANA BRADSHAW MD Mar 03, 2022 08:03
[2022-03-03] MEDS ORDERED: cefTRIAXone 1 GM PRE-MIX 50 ML IV ONE (08:30)
[2022-03-03] MEDS: LACTATED RINGERS 1,000 ML IV PRN ×2 (08:33→09:55)
[2022-03-03] MEDS ORDERED: MIDAZOLAM 2 MG/2 ML (VERSED) VIAL ONE ×2 (09:15→09:59)
[2022-03-03] MEDS ORDERED: PROPOFOL INJECTION 50 ML IV ONE (09:15)
[2022-03-03] MEDS ORDERED: fentaNYL INJ 100 MCG/2 ML AMP ONE (09:18)
--- NOTE | 2022-03-03 10:33 | Progress Note-Post Operative ---
Post-Operative Progess Note Surgeon (s)/Outcomes Specialist (s) Surgeon EMILIANA BRADSHAW MD Outcomes Specialist: NONE Pre-Operative Diagnosis URINARY RETENTION AND CA PROSTATE Post-Operative Diagnosis SAME Procedure & Operative Findings Date of Procedure 03/03/22 Procedure Performed/Findings TURP Anesthesia Type SPINAL Estimated Blood Loss Estimated blood loss (mL): LESS THAN 50CC Specimens/Packing Specimens Removed PROSTATE CHIPS Packing: NONE EMILIANA BRADSHAW MD Mar 03, 2022 10:33
[2022-03-03] MEDS ORDERED: LACTATED RINGERS 1,000 ML IV SCH (10:45)
[2022-03-03] MEDS ORDERED: MILK OF MAGNESIA 400 MG/5 ML 30 ML UDC PO PRN (10:45)
[2022-03-03] MEDS ORDERED: BELLADONNA ALK/OPIUM (B & O) 30 MG SUPP PR PRN (10:45)
[2022-03-03] MEDS ORDERED: ONDANSETRON 4 MG/2 ML (SDV) Z0FRAN IVP PRN (11:00)
[2022-03-03] MEDS: LACTATED RINGERS 1,000 ML IV SCH ×2 (11:52→18:47)
--- NOTE | 2022-03-03 16:12 | OPERATIVE REPORT ---
DATE OF SERVICE: 03/03/2022 PREOPERATIVE DIAGNOSIS: CA of the prostate with urinary retention. POSTOPERATIVE DIAGNOSIS: CA of the prostate with urinary retention. OPERATION PERFORMED: Transurethral resection of the prostate. SURGEON: Emiliana Bradshaw MD ANESTHESIA: General and spinal. COMPLICATIONS: None. DESCRIPTION OF PROCEDURE: Under satisfactory spinal anesthesia, the patient in lithotomy position, genitalia were prepped and draped in the usual sterile fashion. Urethra was dilated with Chastity sound to #30 to accommodate a 26-Algerian Garrett resectoscope. I went ahead and performed a channel type TURP and open the prostate pretty well, staying away from the external sphincter and internal sphincter as well. Bleeders were cauterized. Resection and channel looked adequate. Prostatic chips were evacuated and cystoscopy confirmed intact ureteric orifices zero and sphincter with good reflex. Resectoscope was removed and a 22-Algerian 3-way 30 mL balloon catheter was inserted. The balloon inflated to 50 mL, none of which was 50 mL, and put on traction, connected to CBI, the return of which was clear. Estimated blood loss 50 mL, none of which was replaced. The patient tolerated the procedure and anesthesia well and was sent to recovery room in stable condition. CC: [facility] -- requested, unable to deliver. Job ID: [id number] DocumentID: [id number] Dictated Date: 03/03/2022 10:58:35 Food Cart Attendant Date: 03/03/2022 16:11:36 Dictated By: EMILIANA BRADSHAW MD
[2022-03-03] MEDS: DOCUSATE SODIUM 100 MG (COLACE) CAP PO SCH (20:15)
[2022-03-04] MEDS: LACTATED RINGERS 1,000 ML IV SCH (02:53)
[2022-03-04 03:56] VITALS: BP 149/65
[2022-03-04 05:42] LABS: BASOPHILS % (AUTO) 0 % (0-10); EOSINOPHILS # (AUTO) 0.1 10^3/uL (0.0-0.3); EOSINOPHILS % (AUTO) 1 % (0-10); HEMATOCRIT 41 % (40-54); LYMPHOCYTES # (AUTO) 0.5 10^3/uL (1.0-4.0); LYMPHOCYTES % (AUTO) 5 % (12-44); MEAN CORPUSCULAR HEMOGLOBIN 32 pg (25-34); MEAN CORPUSCULAR HGB CONC 34 g/dL (32-36); MEAN CORPUSCULAR VOLUME 93 fL (80-99); MEAN PLATELET VOLUME 9.3 fL (9.0-12.2); MONOCYTES # (AUTO) 0.8 10^3/uL (0.0-1.0); MONOCYTES % (AUTO) 9 % (0-12); NEUTROPHILS # (AUTO) 7.3 10^3/uL (1.8-7.8); NEUTROPHILS % (AUTO) 84 % (42-75); PLATELET COUNT 194 10^3/uL (130-400); WHITE BLOOD COUNT 8.7 10^3/uL (4.3-11.0)
[2022-03-04 05:57] LABS: POTASSIUM 3.9 MMOL/L (3.6-5.0)
[2022-03-04 05:58] LABS: CALCIUM 9.1 MG/DL (8.5-10.1)
[2022-03-04 05:59] LABS: TOTAL PROTEIN 6.3 GM/DL (6.4-8.2)
[2022-03-04 06:01] LABS: BILIRUBIN,TOTAL 0.3 MG/DL (0.1-1.0)
[2022-03-04 06:03] LABS: CREATININE SERUM 0.79 MG/DL (0.60-1.30)
[2022-03-04 06:06] LABS: EOSINOPHILS % (MANUAL) 1 %; LYMPHOCYTES % (MANUAL) 6 %; MONOCYTES % (MANUAL) 10 %; NEUTROPHILS % (MANUAL) 83 %; RBC MORPH NORMAL
--- NOTE | 2022-03-04 07:39 | Anesthesia-Regional Post-Op ---
Regional Patient Condition Mental Status: Alert, Oriented x3 Circulation: Same as Pre-Op Headache: Absent Sensation: Full Recovery Motor Block: Absent Post Op Complications Complications None Follow Up Care/Instructions Patient Instructions None needed. Anesthesia/Patient Condition Patient is doing well, no complaints, stable vital signs, no apparent adverse anesthesia problems. No complications reported per nursing. CONCEPCION EM CRNA Mar 04, 2022 07:39
[2022-03-04 07:44] VITALS: BP 113/75
[2022-03-04] MEDS: DOCUSATE SODIUM 100 MG (COLACE) CAP PO SCH ×2 (08:11→20:18)
--- NOTE | 2022-03-04 09:22 | Progress Note - Urology ---
Progress Note-Urology Progress Notes/Assess & Plan Progress/Assessment & Plan AFEBRILE, VSS. LOOKS AND FEEL WELL. URINE CRYSTAL CLEAR. PLAN PER ORDERS Final Diagnosis RETENTION AND CA PROSTATE EMILIANA BRADSHAW MD Mar 04, 2022 09:22
[2022-03-04 11:49] VITALS: BP 129/74
[2022-03-04] MEDS: TAMSULOSIN 0.4 MG (FLOMAX) CAP PO SCH ×2 (14:41→20:17)
[2022-03-04] MEDS: FINASTERIDE (PROSCAR) 5 MG TAB PO SCH (14:41)
--- NOTE | 2022-03-04 15:17 | Consultation - Hospitalist ---
ALPHONSE ARIZMENDI MED STUDENT 03/04/22 1517: HPI History of Present Illness: HPI/Chief Complaint CC: S/P transuretheral resection of prostate, urinary retention HPI: This is Mr. Franco, a 76 yo M, with a past medical history including stroke, hypertension, hyperlipidemia, prostate cancer. He was admitted to the med/surg floor S/P transurethral resection of the prostate, performed by Dr. Adams. The prostate cancer has previously been treated with radiation, no chemotherapy. As of this morning, Salvador is feeling fantastic. He denies any pain associated with his procedure yesterday. His de los santos catheter will be taken out today, to make sure that he is able to urinate on his own, without issue. 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 He denies any pain, discomfort, headaches, dizziness, nausea, vomiting, burning with urination. Hospitalist service will continue to follow pt case while admit sobeida under Dr. Adams. Source: patient Exam Limitations: no limitations Date Seen 03/04/22 Attending Physician Sloan Adams MD PCP [facility] Referring Physician Date of Admission Home Medications & Allergies Home Medications Reviewed patient Home Medication Reconciliation performed by pharmacy medication reconciliations help desk technician and/or nursing. Patients Allergies have been reviewed. Allergies Allergies Coded Allergies No Known Drug Allergies (Unverified08/08/09) Past Hkbxggl-Wyyjjf-Tlqbbg Hx Patient Social History Smoking Status: Current Everyday Smoker Immunizations Up To Date First/Initial COVID19 Vaccinat: 07/21/2021 Second COVID19 Vaccination Stanton: 08/21/2021 Tetanus Booster (TDap): Unknown Hepatitis A: No Hepatitis B: No Seasonal Allergies Seasonal Allergies: No Current Status Primary Language: Tajik Past Medical History Surgeries: Eye Surgery Currently Using CPAP: No Currently Using BIPAP: No Coronary Artery Disease, High Cholesterol, Hypertension Stroke Sexually Transmitted Disease: No Arthritis Cataract Prostate Did You Recieve Any Treatments: No What Type of Treatment Did You: Radiation Blood Disorders: No Family Medical History Heart Disease, Cancer Review of Systems Constitutional: No chills, No dizziness, No fever, No weakness EENTM: No blurred vision, No vision loss Respiratory: No cough, No dyspnea on exertion, No short of breath Cardiovascular: No chest pain, No edema, No palpitations Gastrointestinal: No abdominal pain, No constipation, No diarrhea, No melena, No nausea, No vomiting Genitourinary: No dysuria, No frequency; other (retention ) Musculoskeletal: No back pain Psychiatric/Neurological: Denies Headache, Denies Numbness Physical Exam Physical Exam Vital Signs Vital Signs - First Documented 03/03/22 07:45 Temp 35.8 Pulse 61 Resp 16 B/P (MAP) 120/71 (87) Pulse Ox 97 O2 Delivery Room Air Capillary Refill : Height, Weight, BMI Height: '" Weight: lbs. oz. kg; 23.40 BMI Method: General Appearance: No Apparent Distress, WD/WN HEENT: Moist Mucous Membranes; No Scleral Icterus (L), No Scleral Icterus (R) Neck: Full Range of Motion, Normal Inspection, Non Tender; No Lymphadenopathy (L), No Lymphadenopathy (R) Respiratory: Chest Non Tender, Lungs Clear, Normal Breath Sounds, No Accessory Muscle Use Cardiovascular: Regular Rate, Rhythm, No Edema, No Murmur, Normal Peripheral Pulses Gastrointestinal: Normal Bowel Sounds, Non Tender, Soft Extremity: Normal Capillary Refill Neurologic/Psychiatric: Alert, Oriented x3, No Motor/Sensory Deficits, Normal Mood/Affect Skin: Normal Color, Warm/Dry Lymphatic: No Adenopathy Results Results/Procedures Labs Laboratory Tests 03/03/22 08:20 03/04/22 05:30 Patient resulted labs reviewed. Assessment/Plan Assessment and Plan Assess & Plan/Chief Complaint CC: S/P transurethral resection of prostate, prostate cancer, urinary retention A/P - S/P transurethral resection of prostate - prostate cancer, previous radiation - urinary retention - History of Stroke, last in 2020 - Hypertension - Hyperlipidemia - Continue orders per Dr. Adams - Three cup test today - Straight cath with urinary retention - Hospitalist will continue to follow case SÁNCHEZ,DIMPLE JAMIL 03/05/22 0521: HPI History of Present Illness: HPI/Chief Complaint Chief complaint: Uncomplicated TURP History present illness: This is a 76-year-old white male who is status post uncomplicated TURP. Patient feels really good and has no pain. Patient will likely go home today. His pozbezgy-wd-upk is at the bedside and she is his DPOA. Source: patient Exam Limitations: no limitations Past Hqixpjv-Wsdpje-Plrqkk Hx Patient Social History Marrital Status: single Employed/Student: retired Smoking Status: Current Everyday Smoker Past Medical History Stroke Review of Systems Constitutional: see HPI Physical Exam Physical Exam General Appearance: No Apparent Distress, WD/WN Eyes: Bilateral Eye Normal Inspection, Bilateral Eye PERRL HEENT: PERRL/EOMI, TMs Normal, Normal ENT Inspection, Pharynx Normal Neck: Full Range of Motion, Normal Inspection, Non Tender, Supple, Carotid Bruit Respiratory: Chest Non Tender, Lungs Clear, Normal Breath Sounds, No Accessory Muscle Use, No Respiratory Distress Cardiovascular: Regular Rate, Rhythm, No Edema, No Gallop, No JVD, No Murmur, Normal Peripheral Pulses Gastrointestinal: Normal Bowel Sounds, No Organomegaly, No Pulsatile Mass, Non Tender, Soft Back: Normal Inspection, No CVA Tenderness, No Vertebral Tenderness Extremity: Normal Capillary Refill, Normal Inspection, Normal Range of Motion, Non Tender, No Calf Tenderness, No Pedal Edema Neurologic/Psychiatric: Alert, Oriented x3, No Motor/Sensory Deficits, Normal Mood/Affect Skin: Normal Color, Warm/Dry Lymphatic: No Adenopathy Assessment/Plan Assessment and Plan Assess & Plan/Chief Complaint Assessment: Status post TURP History of CVA Hypertension Plan: Supportive care Supervisory-Addendum Brief Verification & Attestation Participated in pt care: history, MDM, physical Personally performed: exam, history, MDM, supervision of care Care discussed with: Medical Student Procedures: n/a Results interpretation: Verified all documentation Verification and Attestation of Medical Student E/M Service A medical student performed and documented this service in my presence. I reviewed and verified all information documented by the medical student and made modifications to such information, when appropriate. I personally performed the physical exam and medical decision making. Dimple Sánchez, Mar 05, 2022,05:20 ALPHONSE ARIZMENDI MED STUDENT Mar 04, 2022 15:17 DIMPLE SÁNCHEZ DO Mar 05, 2022 05:21
[2022-03-04 15:42] VITALS: BP 157/78
[2022-03-04] MEDS: BETHANECHOL 25 MG (URECHOLINE) TAB PO SCH ×2 (16:33→20:17)
[2022-03-04 20:15] VITALS: BP 119/67
[2022-03-05 00:08] VITALS: BP 121/67
[2022-03-05 03:21] VITALS: BP 117/68
[2022-03-05] MEDS: BETHANECHOL 25 MG (URECHOLINE) TAB PO SCH (06:10)
[2022-03-05 06:59] LABS: BASOPHILS % (AUTO) 0 % (0-10); EOSINOPHILS # (AUTO) 0.1 10^3/uL (0.0-0.3); EOSINOPHILS % (AUTO) 1 % (0-10); HEMATOCRIT 38 % (40-54); HEMOGLOBIN 12.7 g/dL (13.3-17.7); LYMPHOCYTES # (AUTO) 0.5 10^3/uL (1.0-4.0); LYMPHOCYTES % (AUTO) 6 % (12-44); MEAN CORPUSCULAR HEMOGLOBIN 31 pg (25-34); MEAN CORPUSCULAR HGB CONC 34 g/dL (32-36); MEAN CORPUSCULAR VOLUME 94 fL (80-99); MEAN PLATELET VOLUME 9.2 fL (9.0-12.2); MONOCYTES # (AUTO) 0.8 10^3/uL (0.0-1.0); MONOCYTES % (AUTO) 10 % (0-12); NEUTROPHILS # (AUTO) 6.6 10^3/uL (1.8-7.8); NEUTROPHILS % (AUTO) 82 % (42-75); PLATELET COUNT 164 10^3/uL (130-400); WHITE BLOOD COUNT 8.1 10^3/uL (4.3-11.0)
[2022-03-05 07:10] LABS: ALBUMIN 3.8 GM/DL (3.2-4.5); POTASSIUM 3.9 MMOL/L (3.6-5.0)
[2022-03-05 07:11] LABS: CALCIUM 8.9 MG/DL (8.5-10.1)
[2022-03-05 07:12] LABS: TOTAL PROTEIN 6.1 GM/DL (6.4-8.2)
[2022-03-05 07:14] LABS: BILIRUBIN,TOTAL 0.3 MG/DL (0.1-1.0)
[2022-03-05 07:16] LABS: CREATININE SERUM 0.72 MG/DL (0.60-1.30)
[2022-03-05 07:23] VITALS: BP 149/71
[2022-03-05] MEDS: DOCUSATE SODIUM 100 MG (COLACE) CAP PO SCH (08:31)
[2022-03-05] MEDS: FINASTERIDE (PROSCAR) 5 MG TAB PO SCH (08:32)
[2022-03-05] MEDS: TAMSULOSIN 0.4 MG (FLOMAX) CAP PO SCH (08:32)
--- NOTE | 2022-03-05 09:17 | Progress Note - Urology ---
Progress Note-Urology Progress Notes/Assess & Plan Progress/Assessment & Plan unable to void yesterday. de los santos back in. urine was dark this morning cleared well by fluids po. wants to go home. discharge with instructions Final Diagnosis retention EMILIANA BRADSHAW MD Mar 05, 2022 09:17
--- NOTE | 2022-03-05 09:22 | Discharge Inst-Urology ---
Discharge Inst-Urology Reconcile Patient Problems Problems Reviewed?: Yes Final Diagnosis RETENTION Patient Instructions/Follow Up Plan/Assessment/Instructions Discharge with de los santos and leg bag day time and large bag night time with instructions. Come to office Tuesday 9am to LA de los santos Follow up appointment with me Tuesday Rest till then Keep bowels soft and moving Stay off ASA Stay on Flomax BID, Proscar daily, and Urecholine 50 QID AC and HS Please call RX for Levaquin 500 daily for 7 days Increase oral fluids for 48 hours and then as needed. Diet as tolerated. If questions or concerns contact your physician Or seek help at emergency department. EMILIANA BRADSHAW MD Mar 05, 2022 09:22
[2022-03-05 10:00] VITALS: BP 149/71
== END 2022-03-05 10:00 | disposition home or self-care (01) ==
LOC: SDC 07:37 → 4TH 11:46 → SDC 03-05 10:00
PROVIDERS: ATTEND Urology
DX: C61 Malignant neoplasm of prostate (principal); N13.8 Other obstructive and reflux uropathy
CPT/HCPCS: 36415; 80053; 85007; 85025; 85027; 85049; 86850; 86900; 86901; 87081; 94664

== ENCOUNTER 2022-03-11 08:43 | Outpatient (RCR) | payer MEDICARE, MEDICAID | END 2022-03-27 | disposition home or self-care (01) | LOC: ONC 08:43 | PROVIDERS: ATTEND Radiology Radiation Oncology | DX: C61 Malignant neoplasm of prostate (principal); E78.00 Pure hypercholesterolemia, unspecified; I10 Essential (primary) hypertension; Z80.2 Family history of malignant neoplasm of other respiratory and intrathoracic organs | CPT/HCPCS: 84153; G0463; 36415; 99213 ==

== ENCOUNTER 2023-07-29 11:37 | Emergency (ER) | payer MEDICARE, MEDICAID ==
[~2023-07-29] VITALS: Ht 175.3 cm; Wt 68.0 kg
[~2023-07-29 11:37] MED LIST changes: +ALBU8.5H6 IH; -BETH50TA2 PO; +BETH50TA3 PO; -RT-ALBUINH IH
[2023-07-29 11:43] VITALS: BP 108/59
[2023-07-29 11:52] LABS: BASOPHILS % (AUTO) 0 % (0-10); EOSINOPHILS # (AUTO) 0.3 10^3/uL (0.0-0.3); EOSINOPHILS % (AUTO) 5 % (0-10); HEMATOCRIT 40 % (40-54); HEMOGLOBIN 13.4 g/dL (13.3-17.7); LYMPHOCYTES # (AUTO) 0.8 10^3/uL (1.0-4.0); LYMPHOCYTES % (AUTO) 15 % (12-44); MEAN CORPUSCULAR HEMOGLOBIN 32 pg (25-34); MEAN CORPUSCULAR HGB CONC 33 g/dL (32-36); MEAN CORPUSCULAR VOLUME 96 fL (80-99); MEAN PLATELET VOLUME 9.3 fL (9.0-12.2); MONOCYTES # (AUTO) 0.5 10^3/uL (0.0-1.0); MONOCYTES % (AUTO) 8 % (0-12); NEUTROPHILS # (AUTO) 4.1 10^3/uL (1.8-7.8); NEUTROPHILS % (AUTO) 71 % (42-75); PLATELET COUNT 203 10^3/uL (130-400); WHITE BLOOD COUNT 5.8 10^3/uL (4.3-11.0)
[2023-07-29 12:06] LABS: PROTHROMBIN TIME PATIENT 13.3 SEC (12.2-14.7)
--- NOTE | 2023-07-29 12:14 | Diagnostic Imaging Report ---
CHEST 1 VIEW, AP/PA ONLY Indication: Chest pain. Comparison: 06/26/2021 Findings: No focal airspace disease in the visualized lungs. Previously noted right perihilar consolidations and right upper lobe nodular opacity have resolved. No pleural effusion or pneumothorax. Normal cardiomediastinal silhouette. Impression: 1. No acute cardiopulmonary process by portable radiography. Dictated by: Dictated on workstation # [id number]
[2023-07-29 12:15] LABS: ALANINE AMINOTRANSFERASE 15 U/L (0-55); ALKALINE PHOSPHATASE 68 U/L (40-136); BILIRUBIN,TOTAL 0.4 MG/DL (0.1-1.0); BUN/CREATININE RATIO 17; CALCIUM 8.6 MG/DL (8.5-10.1); CARBON DIOXIDE 24 MMOL/L (21-32); CHLORIDE 106 MMOL/L (98-107); CREATININE SERUM 0.84 MG/DL (0.60-1.30); GFR ESTIMATED 90; GLUCOSE 103 MG/DL (70-105); MAGNESIUM 2.2 MG/DL (1.6-2.4); POTASSIUM 4.4 MMOL/L (3.6-5.0); SODIUM 140 MMOL/L (135-145); TOTAL PROTEIN 6.4 GM/DL (6.4-8.2)
--- NOTE | 2023-07-29 12:36 | ED Chest Pain ---
General Chief Complaint: Chest Pain Stated Complaint: CHEST PAIN Nursing Triage Note: PT TO ROOM 02 VIA [facility] FROM [facility] WITH C/O CHEST PAIN. PT REPORTS HE WAS WALKING OUT OF [facility] AND DEVELOPED CHEST PAIN. EMS REPORTS [facility] GAVE PT 324 ASA AND EMS GAVE X1 NITRO ENROUTE. Source: patient Exam Limitations: no limitations History of Present Illness Date Seen by Provider: Jul 29, 2023 Time Seen by Provider: 11:55 Initial Comments Here by EMS with report of chest pain that started on the left side and rated 9 out of 10 with onset at 5 AM this morning. They have apparently gone to [facility] [employer] when he notified his caregivers/significant other/friend that he was having chest pain. She brought him to the clinic and the clinic did EKG and gave 324 mg of aspirin p.o. and called EMS and sent him h ere. EKG from the clinic did not show any significant abnormality. Patient denied cough, congestion, fever, chills but does endorse chest pain and mild shortness of breath. He was a previous smoker but has quit. 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 On arrival, the caregiver stated that if the patient were to be admitted that she wants to go to [facility] in [facility] but does not state reason. Patient states pain is worse with sitting up and better when laying back and with positioning. He is point tender in the left upper chest. Denies recent falls or injuries. EMS did give 1 sublingual nitroglycerin and patient did have decline in his blood pressure to near 100 systolic and they did not give a second dose. EMS reports this did not change his pain significantly. Timing/Duration: 4-6 hours, changing over time Severity/Quality: moderate, aching Location: central (Left upper chest) Radiation: no radiation Prior CP/Workup: echocardiography (From Nov 2020 shows normal EF and normal wall motion without abnormalities per report) ASA po BUTT SAWYER: Yes NTG SL BUTT SAWYER: Yes Allergies and Home Medications Allergies Coded Allergies: No Known Drug Allergies (Unverified , 08/08/09) Patient Home Medication List Home Medication List Reviewed: Yes Amlodipine Besylate (Amlodipine Besylate) 10 Mg Tablet, 10 MG PO DAILY, (Report ed) Entered as Reported by: CONCEPCION OSBORN on 11/25/21 1355 Atorvastatin Calcium (Atorvastatin Calcium) 40 Mg Tablet, 40 MG PO DAILY, (Reported) Entered as Reported by: CONCEPCION OSBORN on 11/25/21 1355 Bethanechol Chloride (Bethanechol Chloride) 50 Mg Tablet, 50 MG PO ACHS, (Reported) Entered as Reported by: IKE DONG on 03/02/22 1047 Carvedilol (Carvedilol) 12.5 Mg Tablet, 12.5 MG PO BID, (Reported) Entered as Reported by: CONCEPCION OSBORN on 11/25/21 1355 Finasteride (Proscar) 5 Mg Tablet, 5 MG PO DAILY Prescribed by: SHASHI FRIEDMAN on 12/03/21 1138 Hydrochlorothiazide (Hydrochlorothiazide) 12.5 Mg Tablet, 12.5 MG PO DAILY, (Reported) Entered as Reported by: CONCEPCION OSBORN on 11/25/21 1355 Tamsulosin HCl (Flomax) 0.4 Mg Cap, 0.4 MG PO DAILY Prescribed by: SHASHI FRIEDMAN on 12/03/21 1138 Review of Systems Review of Systems Constitutional: No chills, No fever EENTM: No Nose Congestion, No Throat Pain Respiratory: Denies Cough; Shortness of Air Cardiovascular: Chest Pain Gastrointestinal: Denies Nausea, Denies Vomiting Musculoskeletal: muscle pain Psychiatric/Neurological: Denies Anxiety, Denies Depressed Past Cjuxrsd-Toezla-Zjggga Hx Patient Social History Tobacco Use?: No Smoking Status: Former Smoker Smokeless Tobacco Frequency: Never a User Use of E-Cig and/or Vaping dev: No Use of E-Cig and/or Vaping Santos: Never a User Substance use?: No Alcohol Use?: No Immunizations Up To Date Tetanus Booster (TDap): Unknown First/Initial COVID19 Vaccinat: 07/21/2021 Second COVID19 Vaccination Stanton: 08/21/2021 Third COVID19 Vaccination Date: yes Seasonal Allergies Seasonal Allergies: No Past Medical History Surgeries: Yes (R wrist cyst removed) Eye Surgery Respiratory: Yes (COVID-15 June 2021) Currently Using CPAP: No Currently Using BIPAP: No Cardiac: Yes (CVA-April,) Coronary Artery Disease, High Cholesterol, Hypertension Neurological: Yes Stroke Reproductive Disorders: No Sexually Transmitted Disease: No Genitourinary: Yes (prostate ca) Gastrointestinal: No Musculoskeletal: Yes (SHOULDERS) Arthritis Endocrine: No HEENT: No (cataract removed) Cataract Cancer: Yes Prostate Did You Recieve Any Treatments: No What Type of Treatment Did You: Radiation Psychosocial: No Integumentary: No Blood Disorders: No Family Medical History Reviewed Nursing Family Hx Heart Disease, Cancer Physical Exam Vital Signs Vital Signs - First Documented 07/29/23 07/29/23 11:43 11:46 Temp 35.5 Pulse 55 Resp 19 B/P (MAP) 108/59 (75) Pulse Ox 97 O2 Delivery Room Air Capillary Refill : Less Than 3 Seconds Height, Weight, BMI Height: '" Weight: lbs. oz. kg; 22.00 BMI Method: General Appearance: No Apparent Distress, Thin HEENT: PERRL/EOMI, Pharynx Normal Neck: Non Tender, Supple Respiratory: Lungs Clear, Normal Breath Sounds Cardiovascular: Regular Rate, Rhythm, No Murmur Gastrointestinal: Non Tender, Soft Extremity: Normal Range of Motion, Non Tender, No Calf Tenderness, No Pedal Ed jacobo Neurologic/Psychiatric: Alert, Oriented x3 Skin: Normal Color, Warm/Dry Progress/Results/Core Measures Results/Orders Lab Results Laboratory Tests Test 07/29/23 11:45 Range/Units White Blood Count 5.8 4.3-11.0 10^3/uL Red Blood Count 4.16 L 4.30-5.52 10^6/uL Hemoglobin 13.4 13.3-17.7 g/dL Hematocrit 40 40-54 % Mean Corpuscular Volume 96 80-99 fL Mean Corpuscular Hemoglobin 32 25-34 pg Mean Corpuscular Hemoglobin Concent 33 32-36 g/dL Red Cell Distribution Width 13.4 10.0-14.5 % Platelet Count 203 130-400 10^3/uL Mean Platelet Volume 9.3 9.0-12.2 fL Immature Granulocyte % (Auto) 0 % Neutrophils (%) (Auto) 71 42-75 % Lymphocytes (%) (Auto) 15 12-44 % Monocytes (%) (Auto) 8 0-12 % Eosinophils (%) (Auto) 5 0-10 % Basophils (%) (Auto) 0 0-10 % Neutrophils # (Auto) 4.1 1.8-7.8 10^3/uL Lymphocytes # (Auto) 0.8 L 1.0-4.0 10^3/uL Monocytes # (Auto) 0.5 0.0-1.0 10^3/uL Eosinophils # (Auto) 0.3 0.0-0.3 10^3/uL Basophils # (Auto) 0.0 0.0-0.1 10^3/uL Immature Granulocyte # (Auto) 0.0 0.0-0.1 10^3/uL Prothrombin Time 13.3 12.2-14.7 SEC INR Comment 1.0 0.8-1.4 Activated Partial Thromboplast Time 32 24-35 SEC D-Dimer 0.70 H 0.00-0.49 UG/ML Sodium Level 140 135-145 MMOL/L Potassium Level 4.4 3.6-5.0 MMOL/L Chloride Level 106 98-107 MMOL/L Carbon Dioxide Level 24 21-32 MMOL/L Anion Gap 10 5-14 MMOL/L Blood Urea Nitrogen 14 7-18 MG/DL Creatinine 0.84 0.60-1.30 MG/DL Estimat Glomerular Filtration Rate 90 BUN/Creatinine Ratio 17 Glucose Level 103 70-105 MG/DL Calcium Level 8.6 8.5-10.1 MG/DL Corrected Calcium 8.6 8.5-10.1 MG/DL Magnesium Level 2.2 1.6-2.4 MG/DL Total Bilirubin 0.4 0.1-1.0 MG/DL Aspartate Amino Transf (AST/SGOT) 15 5-34 U/L Alanine Aminotransferase (ALT/SGPT) 15 0-55 U/L Alkaline Phosphatase 68 40-136 U/L Myoglobin 36.8 10.0-92.0 NG/ML Troponin I < 0.028 <0.028 NG/ML Total Protein 6.4 6.4-8.2 GM/DL Albumin 4.0 3.2-4.5 GM/DL My Orders Orders - DARLEEN STOUT MD Morphine Injection (Morphine Injection (07/29/23 12:45) Fibrin Degradation Products (07/29/23 12:46) Medications Given in ED Current Medications Medications Dose Ordered Sig/Ankit Route Start Time Stop Time Status Last Admin Dose Admin Morphine Sulfate 2 mg ONCE ONCE IVP 07/29/23 12:45 07/29/23 12:46 DC 07/29/23 12:52 2 MG Vital Signs/I&O 07/29/23 07/29/23 11:43 11:46 Temp 35.5 Pulse 55 Resp 19 B/P (MAP) 108/59 (75) Pulse Ox 97 O2 Delivery Room Air Room Air Blood Pressure Mean: 75 Progress Progress Note : Progress Note Seen and evaluated on arrival by EMS. Chest pain protocol initiated including CBC, CMP, troponin, myoglobin, chest x-ray and EKG. Patient is already had aspirin by EMS and did have some blood pressure drop with nitroglycerin so we will hold that for now. I did ask patient about pain medicine and he declined at this point. Monitor patient. Differential diagnosis includes cardiac event, pneumonia, pulmonary embolism, mass, musculoskeletal pain 1246: Chest x-ray reviewed by me and shows no obvious infiltrate or mass on my interpretation. Radiology report agrees. CBC reviewed and grossly normal. CMP reviewed and grossly normal with normal electrolytes and normal creatinine and LFTs. Troponin is negative. Myoglobin is negative. Patient is now asking for something for pain. Morphine 2 mg IV ordered. I have added D-dimer. Monitor patient. 1310: Patient's significant other is very upset that at patient has not received anything for pain and there are no results yet. She was notified of the negative results for troponin, chest x-ray and blood counts and that we are checking D-dimer which is just resulted and is negative. He did receive the morphine as ordered. She wants to go to [facility] or [place] and I did discuss the concerns related to leaving prior to full examination and have offered repeat troponin to further evaluate the heart. She states that she would rather go wait 8 hours in the waiting room to get care because he is not getting here. We did review everything its been done to this point she states she understood and would like to go. I did asked the patient has the significant other has a DURABLE POWER OF CAPSULE FILLING MACHINE OPERATOR but he is able to speak for himself and he states that yes in fact he would like to go. AMA form signed. I did instruct him to let what ever facility that they went to know that he was here and we will happily send any information that they would need about the visit today including all labs, x-rays and EKG findings. They verbalized understanding. Patient's blood pressure at the time of departure was 106/58 heart rate was mid 50s with normal O2 sat on room air. Instructed to return for any concerns. Initial ECG Impression Date: Jul 29, 2023 Initial ECG Impression Time: 11:45 Initial ECG Rate: 52 Initial ECG Rhythm: S.Qasim Comment Sinus bradycardia with normal axis. No evidence of ST elevation VT. Similar to EKG done at clinic at 1122 hrs. which was rate of 53 and normal axis as well. Interpreted by me. Diagnostic Imaging Diagonstic Imaging: Xray Plain Films/CT/US/NM/MRI: chest Comments [facility] [place] NAME: KENDALL GUILLAUME [facility] REC#: [id number] PT STATUS: REG ER : 1945 PHYSICIAN: SHASHI MARTINEZ MD ADMIT DATE: 07/29/23/ER Signed Date of Exam:07/29/23 CHEST 1 VIEW, AP/PA ONLY CHEST 1 VIEW, AP/PA ONLY Indication: Chest pain. Comparison: 06/26/2021 Findings: No focal airspace disease in the visualized lungs. Previously noted right perihilar consolidations and right upper lobe nodular opacity have resolved. No pleural effusion or pneumothorax. Normal cardiomediastinal silhouette. Impression: 1. No acute cardiopulmonary process by portable radiography. Dictated by: Dictated on workstation # [id number] Dict: 07/29/23 1212 Trans: 07/29/23 1213 [facility] [id number] Interpreted by: SARA WAKEFIELD MD Electronically signed by: SARA WAKEFIELD MD 07/29/23 1213 Departure Impression Primary Impression: Chest pain Qualified Codes: R07.9 - Chest pain, unspecified Disposition: 07 AGAINST MEDICAL ADVICE Condition: Against Medical Advice Departure-Patient Inst. Decision time for Depature: 13:10 Referrals: BRIANA GUAMAN DO (PCP) Primary Care Physician [facility] (Family) Primary Care Physician Patient Instructions: Leaving Against Medical Advice DARLEEN STOUT MD Jul 29, 2023 12:36
[2023-07-29] MEDS ORDERED: morphine INJ 10 MG/ML 1ML (SYR OR VIAL) IVP ONE (12:45)
== END 2023-07-29 13:07 | disposition left against medical advice (07) ==
LOC: EDUNIT# 11:37 → ER 11:40
DX: R07.89 Other chest pain (principal); Z87.891 Personal history of nicotine dependence; Z86.16 Personal history of COVID-19; Z28.310 Unvaccinated for COVID-19
CPT/HCPCS: 36415; 71045; 80053; 83735; 83874; 84484; 85025; 85379; 85610; 85730; 93041